=== PATIENT | male | born 1955 | race Caucasian/White ===

== ENCOUNTER → 2017-02-19 | Outpatient (CLI) | payer OTHER ==
[~2017-02-19] MED LIST: ADVICAP; ALPR0.5T3 DOB; AMOX500C PO; BACI500O9 TOP; BACI500T TOP; BISA10SU PR; CHLO.12%30; CHOL1CAP13 PO; CYAN100017 DOB; D31000TA PO; DOC-8.6T PO; DOCU100S TUBE; FLUC100T2 PO; IBUP-988 PO; IBUP200C PO; LANSO30 TUBE; LORA-474 PO; MORP10S PO; MORP20SO DOB; MOTR100T DOB; MVI5UDC TUBE; NEXI40CA PO; PREV30CA11 PO; PRIL20CA DOBHOFF; PROM6.2518 PEG; REST30CA PO; SENNSYP PEG; TAB-TAB DOB; TAMS.4 PO; TAMS5CAP PO; TEMA15 DOB; TEMA15 TUBE; TRAM50TA PO; VIAG100T DOB; VITA500C DOBHOFF; ZINC50TA2 DOB; ZOFR4TAB3 SL; [UNRECOGNIZED DRUG - CODE] PEG; [UNRECOGNIZED DRUG - CODE] TUBE; [UNRECOGNIZED DRUG - CODE] TUBE
[2017-02-19 09:23] LABS: EOSINOPHIL # 0.1 TH/MM3 (0-0.4); EOSINOPHIL % 2.6 % (0.0-4.0); HEMATOCRIT 43.1 % (39.0-51.0); HEMO FLAGS DIFF FINAL; LYMPH % 25.7 % (9.0-44.0); LYMPHOCYTE # 0.9 TH/MM3 (1.0-4.8); MEAN CORPUSCULAR HEMOGLOBIN 29.4 PG (27.0-34.0); MONO % 10.3 % (0.0-8.0); NEUT % 60.4 % (16.0-70.0); PLATELET COUNT 167 TH/MM3 (150-450); RED BLOOD COUNT 4.84 MIL/MM3 (4.50-5.90); WHITE BLOOD COUNT 3.3 TH/MM3 (4.0-11.0)
[2017-02-19 10:01] LABS: ANION GAP 8 MEQ/L (5-15); AST (GOT) 14 U/L (15-37); BICARBONATE 30.4 MEQ/L (21.0-32.0); BLOOD UREA NITROGEN 12 MG/DL (7-18); CHLORIDE 103 MEQ/L (98-107); GLOMERULAR FILTRATION RATE 76 ML/MIN (>89); GLUCOSE,FASTING 100 MG/DL (74-99); SODIUM (NA) 141 MEQ/L (136-145)
[2017-02-19 10:28] LABS: ALKALINE PHOSPHATASE 58 U/L (45-117); ALT (GPT) 26 U/L (12-78); TOTAL BILIRUBIN ADULT 0.5 MG/DL (0.2-1.0)
== END ==
LOC: CLAB 08:52
PROVIDERS: ATTEND Internal Medicine
DX: R53.83 Other fatigue (principal)
CPT/HCPCS: 36415; 80053; 82306; 82607; 82746; 84443; 85025

== ENCOUNTER → 2017-03-30 | Outpatient (CLI) | payer OTHER | LOC: CLAB 12:29 | DX: Z12.11 Encounter for screening for malignant neoplasm of colon (principal) | CPT/HCPCS: 82272 ==

== ENCOUNTER → 2017-04-24 | Outpatient (CLI) | payer OTHER ==
--- NOTE | 2017-04-24 11:24 | RADRPT ---
EXAM DATE/TIME: 04/24/2017 00:00 [place] COMPARISON: BA SWALLOW W/SPEECH PATHOLOGY, January 31, 2016, 0:00. INDICATIONS : Aspiration. FLUORO TIME: 2.6 minutes IMAGE COUNT: 0 CONTRAST: Dose as prescribed by speech pathologist. MEDICAL HISTORY : Base of tongue cancer, necrosis of a tooth SURGICAL HISTORY : Tongue surgery ENCOUNTER: Initial ACUITY: 1 day PAIN SCORE: 0/10 LOCATION: Bilateral neck FINDINGS: A modified barium swallow was performed with speech pathology. Patient was given a variety of liquids to swallow. The patient initiates swallowing normally and no evidence of laryngeal penetration or aspiration. Wh en swallowing semisolid and cookie consistency, there is retention of material in the base of the ton sammy which does clear with subsequent swallows with thin liquid. For a full detailed report, see report by the speech pathologist. CONCLUSION: No episodes of aspiration seen. Quincy Wills MD on April 24, 2017 at 11:22 Board Certified Radiologist. This report was verified electronically.
== END ==
LOC: MERGE 10:42 → HRAD 10:42
PROVIDERS: ATTEND Radiology Body Imaging
DX: R13.10 Dysphagia, unspecified (principal); Z85.810 Personal history of malignant neoplasm of tongue; Z85.819 Personal history of malignant neoplasm of unspecified site of lip, oral cavity, and pharynx
CPT/HCPCS: 74230; 92611; G8996; G8997; G8998

== ENCOUNTER → 2017-05-10 | Day surgery (SDC) | payer OTHER ==
[~2017-05-10] MED LIST changes: -AMOX500C PO; -IBUP-988 PO; +LACTATED RINGER'S 1000 ML INJ 1,000 ML ONE; -NEXI40CA PO; +PROPOFOL 500 MG/50 ML BTL IV ONE
--- NOTE | 2017-05-10 13:35 | GIPROC ---
[facility] [address] [facility], [address] COLONOSCOPY PROCEDURE REPORT EXAM DATE: 05/10/2017 PATIENT NAME: Jose Welsh MR #: [id number] BIRTHDATE: 1955 ENDOSCOPIST: Erin Allred MD ORDER #: [id number] [employer]UCK [employer] MECHANIC: STATUS: outpatient INDICATIONS: The patient is a 62 yr old male here for a colonoscopy due to high risk patient with personal history of colonic polyps PROCEDURE PERFORMED: Colonoscopy with ablation Colonoscopy with polypectomy MEDICATIONS: None and Per Anesthesia. PREP QUALITY: 10 % obscured ESTIMATED BLOOD LOSS: None CONSENT: The patient understands the risks and benefits of the procedure and understands that these risks include, but are not limited to: sedation, allergic reaction, infection, perforation and/or bleeding. Alternative means of evaluation and treatment include, among others: physical exam, x-rays, and/or surgical intervention. The patient elects to proceed with this endoscopic procedure. medical equipment was checked for proper function. Hand hygiene and appropriate measures for infection prevention was taken. After the risks, benefits and alternatives of the procedure were thoroughly explained, Informed consent was verified, confirmed and timeout was successfully executed by the treatment team. A digital exam revealed no abnormalities of the rectum The EC-3890Li ([id number]) endoscope was introduced through the anus and advanced to the cecum, which was identified by both the appendix and ileocecal valve. The instrument was then slowly withdrawn as the colon was fully examined. COLON FINDINGS: 1 small polyp in the cecum ablated with heat. 2 polyps in the ascending colon removed by snare. Some stool hroughout the colon. Retroflexed views revealed no abnormalities The scope was then completely withdrawn from the patient and the procedure terminated. ADVERSE EVENTS: There were no complications. IMPRESSIONS: 1. 1 small polyp in the cecum ablated with heat 2. 2 polyps in the ascending colon removed by snare 3. Some stool hroughout the colon 4. Retroflexed views revealed no abnormalities 5. Revealed no abnormalities of the rectum RECOMMENDATIONS: 1. Await biopsy results. Biopsy results will not be ready for 7-10 days. If you don't hear from us in two weeks, call our office for results. 2. Yearly hemoccult 3. High fiber diet RECALL: Return 2 years Colonoscopy longer prep Erin Allred MD eSigned: Erin Allred MD 05/10/2017 1:34 PM cc: Hector Way M.D.
--- NOTE | 2017-05-10 13:38 | GIPROC ---
[facility] [address] [facility], [address] EGD PROCEDURE REPORT EXAM DATE: 05/10/2017 PATIENT NAME: Jose Welsh MR #: [id number] BIRTHDATE: 1955 ATTENDING: Erin Allred MD ORDER #: [id number] DIRECTOR CAREER SERVICES: STATUS: outpatient INDICATIONS: The patient is a 62 yr old male here for an EGD due to dysphagia PROCEDURE PERFORMED: EGD w/ dilation of esophagus via guidewire EGD w/ snare technique MEDICATIONS: None and Per Anesthesia. TOPICAL ANESTHETIC: none CONSENT: The patient understands the risks and benefits of the procedure and understands that these risks include, but are not limited to: sedation, allergic reaction, infection, perforation and/or bleeding. Alternative means of evaluation and treatment include, among others: physical exam, x-rays, and/or surgical intervention. The patient elects to proceed with this endoscopic procedure. medical equipment was checked for proper function. Hand hygiene and appropriate measures for infection prevention was taken. After the risks, benefits and alternatives of the procedure were thoroughly explained, Informed consent was verified, confirmed and timeout was successfully executed by the treatment team. The patient was anesthetized with topical anesthesia and the EC-3890Li ([id number]) endoscope was introduced through the mouth and advanced to the second portion of the duodenum. Retroflexed views revealed no abnormalities The gastroscope was then slowly withdrawn and removed. Gastric polyp removed by snare. Normal EGD otherwise, s/p imperic dilation size 17 mm. Previous toung surgery. ADVERSE EVENTS: There were no complications. IMPRESSIONS: 1. Normal endoscopy otherwise 2. Retroflexed views revealed no abnormalities RECOMMENDATIONS: 1. Await biopsy results. Biopsy results will not be ready for 7-10 days. If you don't hear from us in two weeks, call our office for biopsy results. 2. Soft blended diet PATIENT CONDITION: stable DISPOSITION: Home REPEAT EXAM: Return as needed for EGD Erin Allred MD eSigned: Erin Allred MD 05/10/2017 1:38 PM cc: DOCUMENT ADDENDUM eSigned: Erin Allred MD 05/10/2017 1:45 PM Reason for addendum: [x] Correction of inaccurate information [ ] Recently acquired lab/pathology results [ ] Additional information Comments: there was no polyp in the stomach and polypectomy was not performed on the stomach, just dilation PATIENT NAME: Jose Welsh MR#: [id number]
== END | disposition home or self-care (01) ==
LOC: ESDC 10:53
PROVIDERS: ATTEND Hospitalist
DX: Z12.11 Encounter for screening for malignant neoplasm of colon (principal); Z86.010 Personal history of colon polyps; D12.2 Benign neoplasm of ascending colon; D12.0 Benign neoplasm of cecum; R13.10 Dysphagia, unspecified
CPT/HCPCS: 00740; 00810; 43248; 45385; 45388; 88305; J3010; J7120

== ENCOUNTER → 2017-06-26 | Outpatient (CLI) | payer OTHER ==
[~2017-06-26] MED LIST changes: -ADVICAP; -ALPR0.5T3 DOB; -BACI500O9 TOP; -BACI500T TOP; -BISA10SU PR; -CHLO.12%30; +CIPR-9 PO; -CYAN100017 DOB; -D31000TA PO; -DOCU100S TUBE; -LACTATED RINGER'S 1000 ML INJ 1,000 ML ONE; -LANSO30 TUBE; -MORP10S PO; -MORP20SO DOB; -MOTR100T DOB; +MULT1TAB46 PO; -MVI5UDC TUBE; -PRIL20CA DOBHOFF; -PROM6.2518 PEG; -PROPOFOL 500 MG/50 ML BTL IV ONE; -SENNSYP PEG; -TEMA15 DOB; -TEMA15 TUBE; -TRAM50TA PO; -VITA500C DOBHOFF; -ZINC50TA2 DOB; -ZOFR4TAB3 SL; -[UNRECOGNIZED DRUG - CODE] PEG; -[UNRECOGNIZED DRUG - CODE] TUBE; -[UNRECOGNIZED DRUG - CODE] TUBE
[2017-06-26 15:57] LABS: AUTOMATED NEUTROPHIL # 4.3 TH/MM3 (1.8-7.7); BASOPHIL % 0.6 % (0.0-2.0); EOSINOPHIL # 0.1 TH/MM3 (0-0.4); EOSINOPHIL % 1.4 % (0.0-4.0); HEMATOCRIT 39.3 % (39.0-51.0); HEMO FLAGS DIFF FINAL; LYMPH % 17.9 % (9.0-44.0); LYMPHOCYTE # 1.1 TH/MM3 (1.0-4.8); MEAN CELL VOLUME 89.3 FL (80.0-100.0); MEAN CORPUSCULAR HEMOGLOBIN 30.2 PG (27.0-34.0); MEAN CORPUSCULAR HGB CONC 33.8 % (32.0-36.0); MONO % 8.6 % (0.0-8.0); NEUT % 71.5 % (16.0-70.0); PLATELET COUNT 190 TH/MM3 (150-450); RED CELL DISTRIBUTION WIDTH 13.9 % (11.6-17.2)
[2017-06-26 16:18] LABS: ANION GAP 4 MEQ/L (5-15); AST (GOT) 17 U/L (15-37); BICARBONATE 31.1 MEQ/L (21.0-32.0); BLOOD UREA NITROGEN 14 MG/DL (7-18); CHLORIDE 98 MEQ/L (98-107); GLOMERULAR FILTRATION RATE 71 ML/MIN (>89); GLUCOSE,FASTING 93 MG/DL (74-99); POTASSIUM 4.4 MEQ/L (3.5-5.1); SODIUM (NA) 133 MEQ/L (136-145)
[2017-06-26 16:19] LABS: ALT (GPT) 24 U/L (12-78)
[2017-06-26 16:21] LABS: ALKALINE PHOSPHATASE 62 U/L (45-117); TOTAL BILIRUBIN ADULT 0.3 MG/DL (0.2-1.0)
== END ==
LOC: CLAB 15:38
PROVIDERS: ATTEND Internal Medicine
DX: R53.83 Other fatigue (principal)
CPT/HCPCS: 36415; 80053; 85025

== ENCOUNTER → 2017-08-03 | Outpatient (CLI) | payer OTHER ==
[~2017-08-03] VITALS: Ht 188 cm; Wt 70.0 kg
[~2017-08-03] MED LIST changes: +BENZOCAINE 20% ORAL SPR 60 ML CAN OROPHARYNG ONE; +LIDOCAINE 2% JELLY 5 ML TUBE TOPICAL ONE; +LIDOCAINE HCL 2% JELLY 5 ML SYRINGE TOPICAL ONE
[2017-08-03 11:00] VITALS: BP 121/62; PULSE 71; RESP 18; TEMP 97.5; O2SAT 99
--- NOTE | 2017-08-08 13:52 | PD.PROCEDR ---
GI Procedure PROCEDURE PERFORMED EGD with biopsy and dilation INDICATION FOR PROCEDURE Dysphagia PROCEDURE: The procedure, risks and benefits were discussed with Mr. Welsh and informed consent was obtained. Anesthesia sedated him with Diprivan. He was placed in the left lateral decubitus position. EGD: The Pentax videoscope was introduced through the oropharynx and advanced to the second portion of the duodenum under direct visualization. Retroflexion was performed in the stomach. FINDINGS: The esophagus this appeared to be unremarkable and within normal limits except for a mild irregularity of the Z line this Z line was biopsied and due to the issue of dysphagia I went ahead and dilated with a size 19 mm savory over-the- guidewire dilator post dilatation view was unremarkable with no tears and no bleeding The stomach there was a mild to moderate hiatal hernia otherwise gastric mucosa was unremarkable so as retroflexion The duodenum this was normal ESTIMATED BLOOD LOSS: None SPECIMENS REMOVED: Esophageal biopsy COMPLICATIONS: None IMPRESSION: Irregular Z line Hiatal hernia PLAN: Await biopsy Follow-up with GI in 2-4 weeks Precautions with eating and swallowing Iglesia Mitchell MD Aug 08, 2017 13:52
== END ==
LOC: HEND 10:51
PROVIDERS: ATTEND Hospitalist
DX: R13.10 Dysphagia, unspecified (principal)
CPT/HCPCS: 91010

== ENCOUNTER → 2017-08-08 | Outpatient (CLI) | payer OTHER ==
[~2017-08-08] VITALS: Ht 188 cm; Wt 82.5 kg
[~2017-08-08] MED LIST changes: -BENZOCAINE 20% ORAL SPR 60 ML CAN OROPHARYNG ONE; +CHLORHEXIDINE GLUCONATE 2 % 1 PACK (2 CLOTHS) TOPICAL PRN; +FAMOTIDINE 20 MG/2 ML VIAL ONE; +INSULIN HUMAN REGULAR 1,000 UNITS/10 ML VIAL SQ PRN; +LACTATED RINGER'S 1000 ML IV PRN; -LIDOCAINE 2% JELLY 5 ML TUBE TOPICAL ONE; -LIDOCAINE HCL 2% JELLY 5 ML SYRINGE TOPICAL ONE; +METOPROLOL TARTRATE 25 MG TAB PO PRN; +POVIDONE IODINE 5% (ANTISEPSIS KIT) 4 APPLICATIONS EACH NARE PRN; +PROPOFOL 200 MG/20 ML AMP IV ONE; +SODIUM CHLORID 0.9% 500 ML IV PRN
[2017-08-08 14:01] VITALS: BP 122/68; PULSE 58; RESP 16; O2SAT 99
--- NOTE | 2017-08-08 20:38 | EKG ---
Date Performed: 08/08/2017 Time Performed: 09:45:29 PTAGE: 62 years EKG: SINUS BRADYCARDIA BORDERLINE ECG PREVIOUS TRACING : 06/22/2009 11.03 Compared to prior tracing no significant change DOCTOR: German Courtney Interpretating Date/Time 08/08/2017 20:37:29
--- NOTE | 2017-08-29 07:46 | PD.PROCEDR ---
GI Procedure PROCEDURE DATE: Aug 08, 2017 PROCEDURE PERFORMED EGD with biopsy and dilation INDICATION FOR PROCEDURE Dysphagia PROCEDURE: The procedure, risks and benefits were discussed with Mr. Welsh and informed consent was obtained. Anesthesia sedated him with Diprivan. He was placed in the left lateral decubitus position. EGD: The Pentax videoscope was introduced through the oropharynx and advanced to the second portion of the duodenum under direct visualization. Retroflexion was performed in the stomach. FINDINGS: The esophagus this appeared to be unremarkable and within normal limits except for a mild irregularity of the Z line this Z line was biopsied and due to the issue of dysphagia I went ahead and dilated with a size 19 mm savory over-the- guidewire dilator post dilatation view was unremarkable with no tears and no bleeding The stomach there was a mild to moderate hiatal hernia otherwise gastric mucosa was unremarkable so as retroflexion The duodenum this was normal ESTIMATED BLOOD LOSS: None SPECIMENS REMOVED: Esophageal biopsy COMPLICATIONS: None IMPRESSION: Irregular Z line Hiatal hernia PLAN: Await biopsy Follow-up with GI in 2-4 weeks Precautions with eating and swallowing Iglesia Mitchell MD Aug 08, 2017 13:52 Iglesia Mitchell MD Aug 29, 2017 07:46
== END ==
LOC: HSDC 09:17
PROVIDERS: ATTEND Internal Medicine Gastroenterology
DX: K22.8 Other specified diseases of esophagus (principal); K44.9 Diaphragmatic hernia without obstruction or gangrene; Z01.810 Encounter for preprocedural cardiovascular examination
CPT/HCPCS: 00740; 43239; 43248; 88305; 93005; C1769; J7120

== ENCOUNTER 2017-09-20 17:34 | Inpatient (IN) | payer OTHER ==
[~2017-09-20] VITALS: Ht 188 cm; Wt 81.8 kg
[~2017-09-20 17:34] MED LIST changes: -CHLORHEXIDINE GLUCONATE 2 % 1 PACK (2 CLOTHS) TOPICAL PRN; -CHOL1CAP13 PO; +CHOL1CAP34 PO; -CIPR-9 PO; -FAMOTIDINE 20 MG/2 ML VIAL ONE; -FLUC100T2 PO; -INSULIN HUMAN REGULAR 1,000 UNITS/10 ML VIAL SQ PRN; -LACTATED RINGER'S 1000 ML IV PRN; -METOPROLOL TARTRATE 25 MG TAB PO PRN; -POVIDONE IODINE 5% (ANTISEPSIS KIT) 4 APPLICATIONS EACH NARE PRN; -PREV30CA11 PO; +PREV30CA36 PO; -PROPOFOL 200 MG/20 ML AMP IV ONE; -SODIUM CHLORID 0.9% 500 ML IV PRN; -TAB-TAB DOB; -TAMS.4 PO; -VIAG100T DOB
[2017-09-20 17:38] VITALS: BP 121/59; PULSE 121; RESP 16; TEMP 97.9; O2SAT 99
[2017-09-20] MEDS ORDERED: OXYC1TAB63 PO (17:55)
[2017-09-20] MEDS ORDERED: PROM12.54 PO (17:55)
--- NOTE | 2017-09-20 18:14 | PD ---
HPI Chief Complaint: Abdominal Pain Time Seen by Provider: 18:14 Travel History International Travel<30 days: No Contact w/Intl Traveler<30days: No Traveled to known affect area: No History of Present Illness HPI 62-year-old male with history of resected tongue cancer, recently treated here and in [place] for recurrent bleed from this area which was resected and cauterized. [facility] [place] with follow-up landed with Dr. Rock. Patient currently complaining of severe constipation and rectal pain. He states the last time he moved his bowels was a day and a half ago. Patient has tried a fleets enema and suppository without improvement. Patient has been taking oxycodone every 4 hours for his tongue issue. Patient is currently complaining of 10 out of 10 rectal pain. He denies bleeding or hemorrhoids. He states he is allergic to oxycodone, Zofran, hydrocodone, codeine, and lactose, although patient has been taking Percocet. 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)) Cardiovascular Problems: No High Cholesterol: No Chemotherapy: No Chest Pain: No Congestive Heart Failure: No COPD: No Cerebrovascular Accident: No Diabetes: No Diminished Hearing: No Endocrine: No Gastrointestinal Disorders: Yes (ESOPHAGEAL STRICTURES, PARTIAL TONGUE/PHARYNX REMOVAL) GERD: Yes Glaucoma: No Genitourinary: Yes Headaches: Yes Hepatitis: No Hiatal Hernia: Yes Hypertension: No Immune Disorder: No Musculoskeletal: Yes (ARTHRITIS) Neurologic: No Psychiatric: Yes (ANXIETY) Reproductive: No Respiratory: No Migraines: Yes Radiation Therapy: Yes (HX) Seizures: No Sleep Apnea: Yes Thyroid Disease: No Ulcer: No Tetanus Vaccination: < 5 Years Influenza Vaccination: Yes Past Surgical History Abdominal Surgery: No AICD: No Cardiac Surgery: No Ear Surgery: No Endocrine Surgery: No Eye Surgery: Yes Genitourinary Surgery: No Gynecologic Surgery: No Joint Replacement: No Oral Surgery: Yes (GLOSECTOMY) Pacemaker: No Thoracic Surgery: No Tonsillectomy: Yes (right tonsils removed) Other Surgery: Yes (adnoids) Social History Alcohol Use: No Tobacco Use: No Substance Use: No Allergies-Medications (Allergen,Severity, Reaction): Coded Allergies: lactose (Verified Allergy, Mild, 09/20/17) Lactose intolerance oxycodone (Verified Allergy, Unknown, n/v, 09/20/17) ondansetron (Verified Adverse Reaction, Severe, Nausea/Vomiting, 09/20/17) codeine (Verified Adverse Reaction, Intermediate, NAUSEA, 09/20/17) hydrocodone (Verified Adverse Reaction, Intermediate, Nausea/Vomiting, 09/20/17) Reported Meds & Prescriptions Reported Meds & Active Scripts Active Reported Promethazine (Promethazine HCl) 12.5 Mg Tab 12.5 Mg PO Q6H PRN Oxycodone-Acetaminophen 5-325 mg Tab 1 Tab PO Q4H PRN Vitamin D3 (Cholecalciferol) 50,000 Unit Cap 50,000 Units PO Q7D Multi Vitamin Daily (Multiple Vitamin) 1 Tab Tab PO DAILY Doc-Q-Lax (Sennosides-Docusate Sodium) 8.6-50 Mg Tab 1 Tab PO BID Prevacid (Lansoprazole) 30 Mg Capdr 30 Mg PO BID Ibuprofen 200 Mg Cap 200 Mg PO Q6H PRN Restoril (Temazepam) 30 Mg Cap 30 Mg PO HS PRN Flomax (Tamsulosin HCl) 0.4 Mg Cap 0.4 Mg PO HS Ativan (Lorazepam) 1 Mg Tab 1 Mg PO TID PRN Review of Systems Except as stated in HPI: all other systems reviewed are Neg General / Constitutional: No: Fever Eyes: No: Visual changes HENT: No: Headaches Cardiovascular: No: Chest Pain or Discomfort Respiratory: No: Shortness of Breath Gastrointestinal: Positive: Abdominal Pain, Constipation, No: Nausea, Vomiting , Diarrhea, Hematemesis (lower abdominal and rectal pain), Hematochezia, Changes in Bowel Habits, Indigestion, Dysphagia, Loss of Appetite Genitourinary: No: Dysuria Musculoskeletal: No: Pain Skin: No Rash Neurologic: No: Weakness Psychiatric: No: Depression Endocrine: No: Polydipsia Hematologic/Lymphatic: No: Easy Bruising Physical Exam Narrative GENERAL: Patient is in moderate distress. SKIN: Warm and dry. Normal color. Normal turgor. HEAD: Atraumatic. Normocephalic. EYES: Pupils equal and round. No scleral icterus. No injection or drainage. ENT: No nasal bleeding or discharge. Mucous membranes pink and moist. No active bleeding is noted from the tongue or throat. NECK: Trachea midline. Supple and nontender. CARDIOVASCULAR: Regular rate and rhythm. RESPIRATORY: No accessory muscle use. Clear to auscultation. Breath sounds equal bilaterally. GASTROINTESTINAL: Abdomen soft, moderate left sided lower tenderness, nondistended. No point tenderness or rebound. Hepatic and splenic margins not palpable. Rectal exam shows normal-appearing rectum with dark stool present. Fecal bolus is palpable. MUSCULOSKELETAL: Extremities without clubbing, cyanosis, or edema. No obvious deformities. NEUROLOGICAL: Awake and alert. No obvious cranial nerve deficits. Motor grossly within normal limits. Five out of 5 muscle strength in the arms and legs. Normal speech. PSYCHIATRIC: Appropriate mood and affect; insight and judgment normal. Data Data Last Documented VS Vital Signs Date Time Temp Pulse Resp B/P (MAP) Pulse Ox O2 Delivery O2 Flow Rate FiO2 09/20/17 20:14 108 16 141/63 (89) 100 Room Air 09/20/17 17:38 97.9 Orders Orders Complete Blood Count With Diff (09/20/17 18:24) Comprehensive Metabolic Panel (09/20/17 18:24) Prothrombin Time / Inr (Pt) (09/20/17 18:24) Act Partial Throm Time (Ptt) (09/20/17 18:24) Iv Access Insert/Monitor (09/20/17 18:24) Ecg Monitoring (09/20/17 18:24) Oximetry (09/20/17 18:24) Morphine Inj (Morphine Inj) (09/20/17 18:30) Sodium Chlor 0.9% 1000 Ml Inj (Ns 1000 M (09/20/17 18:24) Sodium Chloride 0.9% Flush (Ns Flush) (09/20/17 18:30) Mineral Oil Enema (Fleet Mineral Oil Elise (09/20/17 18:30) Ckmb (Isoenzyme) Profile (09/20/17 18:48) Act Partial Throm Time (Ptt) (09/20/17 18:48) Troponin I (09/20/17 18:48) Ct Abd/Pel W Iv Contrast(Rout) (09/20/17 18:48) Type And Screen (09/20/17 19:02) Lorazepam Inj (Ativan Inj) (09/20/17 19:45) Labs Laboratory Tests Test 09/20/17 18:50 White Blood Count 8.2 TH/MM3 Red Blood Count 2.56 MIL/MM3 Hemoglobin 8.2 GM/DL Hematocrit 23.4 % Mean Corpuscular Volume 91.1 FL Mean Corpuscular Hemoglobin 31.9 PG Mean Corpuscular Hemoglobin Concent 35.0 % Red Cell Distribution Width 13.4 % Platelet Count 289 TH/MM3 Mean Platelet Volume 6.7 FL Neutrophils (%) (Auto) 89.1 % Lymphocytes (%) (Auto) 5.9 % Monocytes (%) (Auto) 4.6 % Eosinophils (%) (Auto) 0.2 % Basophils (%) (Auto) 0.2 % Neutrophils # (Auto) 7.3 TH/MM3 Lymphocytes # (Auto) 0.5 TH/MM3 Monocytes # (Auto) 0.4 TH/MM3 Eosinophils # (Auto) 0.0 TH/MM3 Basophils # (Auto) 0.0 TH/MM3 CBC Comment DIFF FINAL Differential Comment Prothrombin Time 11.3 SEC Prothromb Time International Ratio 1.0 RATIO Activated Partial Thromboplast Time 23.7 SEC Blood Urea Nitrogen 20 MG/DL Creatinine 1.05 MG/DL Random Glucose 115 MG/DL Total Protein 6.3 GM/DL Albumin 2.9 GM/DL Calcium Level 8.3 MG/DL Alkaline Phosphatase 55 U/L Aspartate Amino Transf (AST/SGOT) 17 U/L Alanine Aminotransferase (ALT/SGPT) 26 U/L Total Bilirubin 0.3 MG/DL Sodium Level 136 MEQ/L Potassium Level 4.0 MEQ/L Chloride Level 102 MEQ/L Carbon Dioxide Level 25.0 MEQ/L Anion Gap 9 MEQ/L Estimat Glomerular Filtration Rate 72 ML/MIN [facility] Medical Decision Making Medical Screen Exam Complete: Yes Emergency Medical Condition: Yes Medical Record Reviewed: Yes Differential Diagnosis Rectal pain. Abdominal pain. Guaiac positive stool. Fecal impaction. Constipation. Narrative Course Patient is in moderate distress. Labs ordered including CBC, CMP, cardiac panel, urinalysis, PT PTT and INR, type and screen. Rectal exam is performed with partial impaction removal with dark stool removed with moderate amount of soft stool expelled. Comode is brought to the room. IV access is obtained patient is given 4 mg morphine IV as well as thousand and normal saline bolus. CT of the abdomen/pelvis with IV contrast is ordered. Patient is given 1 mg Xanax IV as well. Patient refused his chest x-ray and abdominal/pelvic CT. CBC shows hemoglobin 8.2, and hematocrit of 23.4. This is decreased from 13.5 and 39.1 on 15 September. Patient is discussed with Dr. Calvert, as I'm concerned about his abdominal pain with guaiac positive stools with worsening H&H.. Dr. Calvert sees the patient. Patient is felt to be having a GI bleed of some type with worsening hemoglobin and lactic positive stool. Call was placed to the hospitalist, and the patient is discussed with Dr. Marcano who agrees to admit the patient. GI will be consult the. Diagnosis Primary Impression: Guaiac positive stools Additional Impressions: Fecal impaction in rectum Anemia Qualified Codes: D62 - Acute posthemorrhagic anemia Admitting Information Admitting Physician Requests: Admit Condition: Stable Ronaldo Dietrich Sep 20, 2017 18:14
[2017-09-20] MEDS ORDERED: SODIUM CHLOR 0.9% 1000 ML INJ 1,000 ML IV SCH (18:24)
[2017-09-20] MEDS ORDERED: SODIUM CHLORIDE 0.9% FLUSH 10 ML FLUSH IV FLUSH PRN ×2 (18:30→21:45)
[2017-09-20] MEDS ORDERED: MINERAL OIL ENEMA 118 ML BTL RECTAL ONE (18:30)
[2017-09-20] MEDS ORDERED: MORPHINE SULFATE 4 MG/ML INJ IV PUSH ONE (18:30)
[2017-09-20 18:53] VITALS: RESP 18; O2SAT 100
[2017-09-20 19:22] LABS: AUTOMATED NEUTROPHIL # 7.3 TH/MM3 (1.8-7.7); BASOPHIL % 0.2 % (0.0-2.0); EOSINOPHIL % 0.2 % (0.0-4.0); HEMATOCRIT 23.4 % (39.0-51.0); HEMO FLAGS DIFF FINAL; LYMPH % 5.9 % (9.0-44.0); LYMPHOCYTE # 0.5 TH/MM3 (1.0-4.8); MEAN CELL VOLUME 91.1 FL (80.0-100.0); MEAN CORPUSCULAR HEMOGLOBIN 31.9 PG (27.0-34.0); MONO % 4.6 % (0.0-8.0); NEUT % 89.1 % (16.0-70.0); PLATELET COUNT 289 TH/MM3 (150-450); RED BLOOD COUNT 2.56 MIL/MM3 (4.50-5.90); RED CELL DISTRIBUTION WIDTH 13.4 % (11.6-17.2); WHITE BLOOD COUNT 8.2 TH/MM3 (4.0-11.0)
[2017-09-20 19:30] LABS: APTT (PATIENT) 23.7 SEC (24.3-30.1); PROTHROMBIN TIME - PATIENT 11.3 SEC (9.8-11.6)
[2017-09-20 19:35] LABS: ANION GAP 9 MEQ/L (5-15); AST (GOT) 17 U/L (15-37); BLOOD UREA NITROGEN 20 MG/DL (7-18); CHLORIDE 102 MEQ/L (98-107); GLOMERULAR FILTRATION RATE 72 ML/MIN (>89); SODIUM (NA) 136 MEQ/L (136-145)
[2017-09-20 19:36] LABS: ALT (GPT) 26 U/L (12-78)
[2017-09-20 19:38] LABS: ALKALINE PHOSPHATASE 55 U/L (45-117); TOTAL BILIRUBIN ADULT 0.3 MG/DL (0.2-1.0)
[2017-09-20] MEDS ORDERED: LORazepam 2 MG/ML VIAL IV PUSH ONE (19:45)
[2017-09-20 20:14] VITALS: BP 141/63; PULSE 108; RESP 16; O2SAT 100
--- NOTE | 2017-09-20 20:52 | PD ---
Physical Exam Narrative I, Dr. Calvert, have reviewed the advance practice practitioner's documentation and am in agreement, met with the patient face to face, made the diagnosis, and the medical decision making was done by me. *My assessment and Findings: Lower GI bleed vs. opioid induced constipation vs. colitis 62yo M with lower abdominal pain and has positive hemaprompt. Pt is tachycardic at 121bpm but improved to 108bpm now. This may be pain related or secondary to GI bleed. Labs reviewed, no leukocytosis. H/H low at 8.2/23.4. The last hemoglobin we have on record is 13.5/39.1 on 09/15/17. Pt went to [facility] and said he had more bleeding from his tongue cancer and his hemoglobin was down to the 8.0 region. However, with abdominal pain, positive hemaprompt and drop in hemoglobin, I cant rule out GI bleed without colonoscopy. Pt is refusing CT scan. Pt given morphine and protonix. Discussed with hospitalist and accepted to Dr. Marcano's service. Data Data Last Documented VS Vital Signs Date Time Temp Pulse Resp B/P (MAP) Pulse Ox O2 Delivery O2 Flow Rate FiO2 09/20/17 20:14 108 16 141/63 (89) 100 Room Air 09/20/17 17:38 97.9 Orders Orders Complete Blood Count With Diff (09/20/17 18:24) Comprehensive Metabolic Panel (09/20/17 18:24) Prothrombin Time / Inr (Pt) (09/20/17 18:24) Act Partial Throm Time (Ptt) (09/20/17 18:24) Iv Access Insert/Monitor (09/20/17 18:24) Ecg Monitoring (09/20/17 18:24) Oximetry (09/20/17 18:24) Morphine Inj (Morphine Inj) (09/20/17 18:30) Sodium Chlor 0.9% 1000 Ml Inj (Ns 1000 M (09/20/17 18:24) Sodium Chloride 0.9% Flush (Ns Flush) (09/20/17 18:30) Mineral Oil Enema (Fleet Mineral Oil Elise (09/20/17 18:30) Ckmb (Isoenzyme) Profile (09/20/17 18:48) Act Partial Throm Time (Ptt) (09/20/17 18:48) Troponin I (09/20/17 18:48) Ct Abd/Pel W Iv Contrast(Rout) (09/20/17 18:48) Type And Screen (09/20/17 19:02) Lorazepam Inj (Ativan Inj) (09/20/17 19:45) Pantoprazole Inj (Protonix Inj) (09/20/17 21:00) Admit Order (Ed Use Only) (09/20/17 20:49) Labs Laboratory Tests Test 09/20/17 18:50 White Blood Count 8.2 TH/MM3 Red Blood Count 2.56 MIL/MM3 Hemoglobin 8.2 GM/DL Hematocrit 23.4 % Mean Corpuscular Volume 91.1 FL Mean Corpuscular Hemoglobin 31.9 PG Mean Corpuscular Hemoglobin Concent 35.0 % Red Cell Distribution Width 13.4 % Platelet Count 289 TH/MM3 Mean Platelet Volume 6.7 FL Neutrophils (%) (Auto) 89.1 % Lymphocytes (%) (Auto) 5.9 % Monocytes (%) (Auto) 4.6 % Eosinophils (%) (Auto) 0.2 % Basophils (%) (Auto) 0.2 % Neutrophils # (Auto) 7.3 TH/MM3 Lymphocytes # (Auto) 0.5 TH/MM3 Monocytes # (Auto) 0.4 TH/MM3 Eosinophils # (Auto) 0.0 TH/MM3 Basophils # (Auto) 0.0 TH/MM3 CBC Comment DIFF FINAL Differential Comment Prothrombin Time 11.3 SEC Prothromb Time International Ratio 1.0 RATIO Activated Partial Thromboplast Time 23.7 SEC Blood Urea Nitrogen 20 MG/DL Creatinine 1.05 MG/DL Random Glucose 115 MG/DL Total Protein 6.3 GM/DL Albumin 2.9 GM/DL Calcium Level 8.3 MG/DL Alkaline Phosphatase 55 U/L Aspartate Amino Transf (AST/SGOT) 17 U/L Alanine Aminotransferase (ALT/SGPT) 26 U/L Total Bilirubin 0.3 MG/DL Sodium Level 136 MEQ/L Potassium Level 4.0 MEQ/L Chloride Level 102 MEQ/L Carbon Dioxide Level 25.0 MEQ/L Anion Gap 9 MEQ/L Estimat Glomerular Filtration Rate 72 ML/MIN [facility] Supervised Visit with KWAKU: Yes Diagnosis Primary Impression: GI bleed Qualified Codes: K92.2 - Gastrointestinal hemorrhage, unspecified Admitting Information Admitting Physician Requests: Admit Condition: Stable Jessy Calvert DO Sep 20, 2017 20:52
[2017-09-20] MEDS ORDERED: PANTOPRAZOLE SODIUM 40 MG VIAL IV PUSH ONE (21:00)
[2017-09-20] MEDS ORDERED: BISACODYL 10 MG SUPP RECTAL ONE (21:45)
--- NOTE | 2017-09-20 21:54 | HHI.HP ---
HPI Service [facility] Primary Care Physician Hector Way MD Admission Diagnosis Fecal Impaction/WorseningAnemia/Guiac Positive Diagnoses: Travel History International Travel<30 Days: No Contact w/Intl Traveler <30 Da: No Traveled to Known Affected Are: No History of Present Illness 62-year-old male with a past medical history significant for tongue cancer presents to the emergency department with a 3 day history of left-sided abdominal pain and severe constipation. The patient is status post tongue resection in December 2015 which was followed with radiation therapy completed in May 2016. 2 weeks ago, the patient had a flap release of his tongue which resulted in residual bleeding requiring transfusion. The patient was discharged from [facility] in celebration on Sunday with a hemoglobin of 8. He is on Percocet every 4 hours and has had severe constipation 3 days. The patient tried an enema at home and is compliant with his stool softeners. Per emergency department examination there is a solid stool ball palpable in the patient's rectum. Disimpaction was unsuccessful. He was Hemoccult positive. He remains anemic with an H&H of 8.2/23.4. He denies dizziness or shortness of breath. Denies fatigue and weakness. Review of Systems Denies fever or chills Denies blurry vision, otorrhea, rhinorrhea Denies sore throat and cough No chest pain, palpitations, shortness of breath No abdominal pain Denies nausea/vomiting. Positive constipation Denies muscle pain/weakness No rashes Past Family Social History Past Medical History Tongue cancer Past Surgical History Tongue resection in 2016 Flap release 2 weeks ago Reported Medications Reported Meds & Active Scripts Active Reported Promethazine (Promethazine HCl) 12.5 Mg Tab 12.5 Mg PO Q6H PRN Oxycodone-Acetaminophen 5-325 mg Tab 1 Tab PO Q4H PRN Vitamin D3 (Cholecalciferol) 50,000 Unit Cap 50,000 Units PO Q7D Multi Vitamin Daily (Multiple Vitamin) 1 Tab Tab PO DAILY Doc-Q-Lax (Sennosides-Docusate Sodium) 8.6-50 Mg Tab 1 Tab PO BID Prevacid (Lansoprazole) 30 Mg Capdr 30 Mg PO BID Ibuprofen 200 Mg Cap 200 Mg PO Q6H PRN Restoril (Temazepam) 30 Mg Cap 30 Mg PO HS PRN Flomax (Tamsulosin HCl) 0.4 Mg Cap 0.4 Mg PO HS Ativan (Lorazepam) 1 Mg Tab 1 Mg PO TID PRN Allergies: Coded Allergies: lactose (Verified Allergy, Mild, 09/20/17) Lactose intolerance oxycodone (Verified Allergy, Unknown, n/v, 09/20/17) ondansetron (Verified Adverse Reaction, Severe, Nausea/Vomiting, 09/20/17) codeine (Verified Adverse Reaction, Intermediate, NAUSEA, 09/20/17) hydrocodone (Verified Adverse Reaction, Intermediate, Nausea/Vomiting, 09/20/17) Family History Dad with coronary artery disease, now from lung cancer. Mom with [place]. Social History Denies tobacco, alcohol and illicit drugs. Quit drinking 20 years ago. Physical Exam Vital Signs Vital Signs Date Time Temp Pulse Resp B/P (MAP) Pulse Ox O2 Delivery O2 Flow Rate FiO2 09/20/17 20:14 108 16 141/63 (89) 100 Room Air 09/20/17 18:53 18 100 Room Air 09/20/17 17:49 18 09/20/17 17:38 97.9 121 16 121/59 (79) 99 Physical Exam GENERAL: White male sitting up in bed in moderate discomfort SKIN: No rashes, ecchymoses or lesions. Cool and dry. HEAD: Atraumatic. Normocephalic. No temporal or scalp tenderness. EYES: Pupils equal round and reactive. Extraocular motions intact. No scleral icterus. No injection or drainage. ENT: Nose without bleeding, purulent drainage or septal hematoma. Throat without erythema, tonsillar hypertrophy or exudate. Uvula midline. Airway patent. NECK: Trachea midline. No JVD or lymphadenopathy. Supple, nontender, no meningeal signs. CARDIOVASCULAR: Regular rate and rhythm without murmurs, gallops, or rubs. RESPIRATORY: Clear to auscultation. Breath sounds equal bilaterally. No wheezes , rales, or rhonchi. GASTROINTESTINAL: Abdomen soft, tender to palpation worse in the left quadrants , mildly distended. No hepato-splenomegaly, or palpable masses. No guarding. MUSCULOSKELETAL: Extremities without clubbing, cyanosis, or edema. No joint tenderness, effusion, or edema noted. No calf tenderness. Negative Homans sign bilaterally. NEUROLOGICAL: Awake and alert. Cranial nerves II through XII intact. Motor and sensory grossly within normal limits. Normal speech. Laboratory Laboratory Tests Test 09/20/17 18:50 White Blood Count 8.2 Red Blood Count 2.56 Hemoglobin 8.2 Hematocrit 23.4 Mean Corpuscular Volume 91.1 Mean Corpuscular Hemoglobin 31.9 Mean Corpuscular Hemoglobin Concent 35.0 Red Cell Distribution Width 13.4 Platelet Count 289 Mean Platelet Volume 6.7 Neutrophils (%) (Auto) 89.1 Lymphocytes (%) (Auto) 5.9 Monocytes (%) (Auto) 4.6 Eosinophils (%) (Auto) 0.2 Basophils (%) (Auto) 0.2 Neutrophils # (Auto) 7.3 Lymphocytes # (Auto) 0.5 Monocytes # (Auto) 0.4 Eosinophils # (Auto) 0.0 Basophils # (Auto) 0.0 CBC Comment DIFF FINAL Differential Comment Prothrombin Time 11.3 Prothromb Time International Ratio 1.0 Activated Partial Thromboplast Time 23.7 Blood Urea Nitrogen 20 Creatinine 1.05 Random Glucose 115 Total Protein 6.3 Albumin 2.9 Calcium Level 8.3 Alkaline Phosphatase 55 Aspartate Amino Transf (AST/SGOT) 17 Alanine Aminotransferase (ALT/SGPT) 26 Total Bilirubin 0.3 Sodium Level 136 Potassium Level 4.0 Chloride Level 102 Carbon Dioxide Level 25.0 Anion Gap 9 Estimat Glomerular Filtration Rate 72 Result Diagram: 09/20/17184909/20/171849 Caprini VTE Risk Assessment Caprini VTE Risk Assessment: Mod/High Risk (score >= 2) Caprini Risk Assessment Model Point Value = 1 Point Value = 2 Point Value = 3 Point Value = 5 Age 41-60 Minor surgery BMI > 25 kg/m2 Swollen legs Varicose veins or History of unexplained or recurrent spontaneous Oral contraceptives or hormone replacement Sepsis (< 1 month) Serious lung disease, including pneumonia (< 1 month) Abnormal pulmonary function Acute myocardial infarction Congestive heart failure (< 1 month) History of inflammatory bowel disease Medical patient at bed rest Age 61-74 Arthroscopic surgery Major open surgery (> 45 min) Laparoscopic surgery (> 45 min) Malignancy Confined to bed (> 72 hours) Immobilizing plaster cast Central venous access Age >= 75 History of VTE Family history of VTE Factor V Leiden Prothrombin [id number] Lupus anticoagulant Anticardiolipin antibodies Elevated serum homocysteine Heparin-induced thrombocytopenia Other congenital or acquired thrombophilia Stroke (< 1 month) Elective arthroplasty Hip, pelvis, or leg fracture Acute spinal cord injury (< 1 month) Prophylaxis Regimen Total Risk Factor Score Risk Level Prophylaxis Regimen 0-1 Low Early ambulation 2 Moderate Order ONE of the following: *Sequential Compression Device (SCD) *Heparin 5000 units SQ BID 3-4 Higher Order ONE of the following medications: *Heparin 5000 units SQ TID *Enoxaparin/Lovenox 40 mg SQ daily (WT < 150 kg, CrCl > 30 mL/min) *Enoxaparin/Lovenox 30 mg SQ daily (WT < 150 kg, CrCl > 10-29 mL/min) *Enoxaparin/Lovenox 30 mg SQ BID (WT < 150 kg, CrCl > 30 mL/min) AND/OR *Sequential Compression Device (SCD) 5 or more Highest Order ONE of the following medications: *Heparin 5000 units SQ TID (Preferred with Epidurals) *Enoxaparin/Lovenox 40 mg SQ daily (WT < 150 kg, CrCl > 30 mL/min) *Enoxaparin/Lovenox 30 mg SQ daily (WT < 150 kg, CrCl > 10-29 mL/min) *Enoxaparin/Lovenox 30 mg SQ BID (WT < 150 kg, CrCl > 30 mL/min) AND *Sequential Compression Device (SCD) Assessment and Plan Assessment and Plan 62-year-old male with a past medical history significant for tongue cancer status post resection and radiation presents with possible GI bleed, Hemoccult positive stool and fecal impaction. 1. Concern for GI bleed Patient anemic with hemoglobin of 8.2 Trend serial H&H every 6 hours Consult gastroenterology Transfuse when necessary Monitor vital signs 2. Severe constipation/fecal impaction Manual disimpaction failed in the emergency department Dulcolax suppository Mineral oil enema Appreciate gastroenterology assistance 3. History of tongue cancer Status post flap release 2 weeks ago with postoperative hemorrhage requiring transfusion Follow H&H Monitor for signs of bleeding 4. Anxiety Continue home Ativan FEN Nothing by mouth Normal saline at 75 cc/hour Electrolytes within normal limits; continue monitor Lovenox Physician Certification 2 Midnight Certification Type: Admission for Inpatient Services Order for Inpatient Services The services are ordered in accordance with Medicare regulations or non- Medicare payer requirements, as applicable. In the case of services not specified as inpatient-only, they are appropriately provided as inpatient services in accordance with the 2-midnight benchmark. Estimated LOS (days): 2 2 days is the estimated time the patient will need to remain in the hospital, assuming treatment plan goals are met and no additional complications. Post-Hospital Plan: Home Edwina Marcano MD Sep 20, 2017 21:54
[2017-09-20] MEDS ORDERED: ENOXAPARIN SODIUM 40 MG/0.4 ML SYRINGE SQ SCH (22:00)
[2017-09-20] MEDS: SODIUM CHLOR 0.9% 1000 ML INJ 1,000 ML IV SCH (22:15)
[2017-09-20 22:24] VITALS: BP 100/96
[2017-09-20] MEDS ORDERED: ACETAMINOPHEN 325 MG TAB PO PRN (23:00)
[2017-09-20] MEDS: LORazepam 1 MG TAB PO PRN (23:57)
[2017-09-20] MEDS: TEMAZEPAM 15 MG CAP PO PRN (23:57)
[2017-09-21] VITALS (7 sets, daily range): BP systolic 107–138; BP diastolic 51–66; PULSE 70–98; RESP 16–20; TEMP 98–98.8; O2SAT 93–100
[2017-09-21] MEDS: MINERAL OIL ENEMA 118 ML BTL RECTAL PRN ×2 (01:47→13:42)
[2017-09-21 04:34] LABS: HEMATOCRIT 21.7 % (39.0-51.0); REVIEW FLAG FINAL
[2017-09-21 04:55] LABS: BICARBONATE 25.9 MEQ/L (21.0-32.0); POTASSIUM 3.8 MEQ/L (3.5-5.1)
[2017-09-21] MEDS: PROMETHAZINE INJ 25 MG/ML VIAL IM PRN ×2 (07:00→12:16)
[2017-09-21] MEDS: MORPHINE SULFATE 4 MG/ML INJ IV PUSH PRN ×2 (07:01→12:19)
[2017-09-21] MEDS: SODIUM CHLORIDE 0.9% FLUSH 10 ML FLUSH IV FLUSH SCH ×2 (09:00→20:24)
[2017-09-21] MEDS: DOCUSATE SODIUM 50 MG/SENNA 8.6 MG TAB PO SCH ×2 (09:37→20:24)
[2017-09-21] MEDS: PANTOPRAZOLE SODIUM 40 MG VIAL IV PUSH SCH (09:37)
[2017-09-21] MEDS ORDERED: BACITRACIN TOP OINT 15 GM TUBE TOPICAL PRN (09:45)
--- NOTE | 2017-09-21 09:48 | RADRPT ---
EXAM DATE/TIME: 09/21/2017 09:06 [facility] COMPARISON: ABDOMEN KUB ONLY, January 27, 2016, 17:55. INDICATIONS : Obstruction. MEDICAL HISTORY : Tongue cancer. Necrosis of tooth. SURGICAL HISTORY : Tongue surgery. ENCOUNTER: Initial ACUITY: 1 day PAIN SCORE: 0/10 LOCATION: Bilateral Abdomen FINDINGS: Supine view of the abdomen was performed. The abdominal bowel gas pattern is normal. No abnormal ma sses, calcifications, or organomegaly is seen. The osseous structures are unremarkable. CONCLUSION: 1. No evidence of obstruction. Harvinder Man MD on September 21, 2017 at 9:45 Board Certified Radiologist. This report was verified electronically.
[2017-09-21] MEDS ORDERED: DIATRIZOATE MEGLUM/DIATRIZOATE SOD 9 ML CUP PO ONE (10:15)
[2017-09-21] MEDS: SODIUM CHLOR 0.9% 1000 ML INJ 1,000 ML IV SCH ×2 (10:56→23:00)
[2017-09-21 11:44] LABS: HEMATOCRIT 21.2 % (39.0-51.0); REVIEW FLAG FINAL
[2017-09-21] MEDS ORDERED: BISACODYL 10 MG SUPP RECTAL PRN (11:45)
[2017-09-21] MEDS ORDERED: MAGNESIUM HYDROXIDE SUSP 30 ML CUP PO PRN (11:45)
[2017-09-21] MEDS ORDERED: SENNOSIDES 8.6 MG TAB PO PRN (11:45)
[2017-09-21] MEDS ORDERED: SODIUM CHLOR 0.9% 250 ML INJ 250 ML IV ONE (14:00)
--- NOTE | 2017-09-21 15:22 | MB ---
cc: LUDWIN ELLIOTT MD DATE OF CONSULTATION: 09/21/2017. REASON FOR CONSULTATION: HISTORY OF PRESENT ILLNESS: This is a 62-year-old gentleman who was admitted to the hospital with weakness and severe constipation. He has a history of carcinoma of the tongue first appearing in 2000. He had a recurrence of this and had a second resection in December of 2015 followed by radiation therapy. Two weeks ago he had a revision of his skin flap to help him with movement and began having significant bleeding postoperatively. He was initially seen here at the hospital. The bleeding was stopped and he was sent home only to be readmitted with recurrent bleeding. He was transferred to [facility] where his revision was done and significant bleeding was present at that institution with what he notes as a hemoglobin down to 8. He then went into the operating room where his revision was repaired and apparently he had laceration of a small artery. He was told at that time that his troponin also was elevated and the question of a small heart attack was raised; however, no further follow up was present as they had recommended CT scanning. The patient refused that. He is anxious about CT scanning as he has had adverse reactions in the past with CT scanning involving problems breathing afterwards. The etiology of that is unclear but he is very insistent about no CT scanning. In any event, he was admitted to the hospital now because of significant constipation. He has tried enemas and stool softeners without significant relief. Here in the hospital, repeat laboratory examination has revealed a hemoglobin of 7.4 and a troponin of 0.15 and we have been asked to see him. He has no chest pain although he has noted in the past a vague left-sided ache which he describes as similar to that of having lifted heavy objects. He does not recall any specific chest discomfort and is unsure when the last episode was or how long it lasted. No real shortness of breath has been present. His risk factors for coronary artery disease are remarkably absent. He has no history of smoking. He is not hypertensive or diabetic, although his lipid status is unknown. PAST MEDICAL HISTORY: His past medical history has otherwise been unremarkable. MEDICATIONS: His medications at home have included: 1. Flomax. 2. Ativan. 3. Restoril. 4. Ibuprofen. 5. Prevacid. 6. Vitamin D. 7. Oxycodone. 8. Promethazine. ALLERGIES: 1. CODEINE. 2. ONDANSETRON. FAMILY HISTORY: Father from lung cancer. He had heart disease later in life. His mother has a history of atrial fibrillation. SOCIAL HISTORY As above. He is a nonsmoker and non-drinker and he does not use recreational drugs. PHYSICAL EXAMINATION: GENERAL: On physical exam, he is awake and alert. He is in no acute distress. VITAL SIGNS: Blood pressure is 116/60, he is afebrile, pulse is 70 and regular. NECK: There is no neck vein distention. Carotids are normal. LUNGS: Clear. CARDIOVASCULAR: Regular rate and rhythm. No significant murmur. No gallop is noted. ABDOMEN: Soft. There is no tenderness or organomegaly. EXTREMITIES: No edema. ASSESSMENT: The patient has had elevated troponins. This very well may be secondary to demand, especially in view of his especially in view of his rather acute events with bleeding and marked anemia. I have ordered an electrocardiogram as well as an echocardiogram and will repeat his troponin tomorrow. I certainly agree with blood transfusions to try to restore his hemoglobin to 9. At this point in time, the patient is very eager to further workup in terms of either nuclear scanning or cardiac catheterization but will follow him along during his catheterization and make further decisions based on the outcome of the above tests. MD YOUSUF Titus/RADHIKA /2:27 PM /3:13 PM
[2017-09-21] MEDS: LACTULOSE SYRUP 20 GM/30 ML CUP PO PRN (16:01)
--- NOTE | 2017-09-21 16:54 | HHI.PR ---
Subjective Remarks Follow-up for anemia, fecal impaction Patient has small bowel movement yesterday, another one after an enema today. Passing a lot of gas. No nausea or vomiting. No fever. No note of hematochezia or melena but has history of hemorrhoids. Troponin is mildly elevated and has history of troponin elevation from [facility], He has no chest pain right now. Patient says that he had chest pain while he was at [facility] that was mostly left-sided, anterior axillary line, pressure- like, nonradiating, no blurring of vision. Abdominal pain is moderate Objective Vitals Vital Signs Date Time Temp Pulse Resp B/P (MAP) Pulse Ox O2 Delivery O2 Flow Rate FiO2 09/21/17 15:48 98.1 85 16 107/51 (69) 98 09/21/17 12:11 98.1 70 18 116/57 (76) 93 09/21/17 08:36 98.2 87 18 119/58 (78) 99 09/21/17 04:15 98.0 89 19 125/65 (85) 99 09/21/17 00:00 98.8 98 19 138/63 (88) 100 09/20/17 22:24 108 16 100/96 (97) 95 09/20/17 20:14 108 16 141/63 (89) 100 Room Air 09/20/17 18:53 18 100 Room Air 09/20/17 17:49 18 09/20/17 17:38 97.9 121 16 121/59 (79) 99 I/O 09/20/17 09/20/17 09/20/17 09/21/17 09/21/17 09/21/17 07:00 15:00 23:00 07:00 15:00 23:00 Intake Total 1000 ml 0 ml 480 ml Balance 1000 ml 0 ml 480 ml Intake Oral 0 ml 480 ml IV Total 1000 ml # Voids 2 # Bowel Movements 0 Result Diagram: 09/21/17 1120 09/21/17 0350 Imaging Last Impressions Abdomen X-Ray 09/21/17 0000 Signed Impressions: Service Date/Time: Thursday, September 21, 2017 09:06 - CONCLUSION: 1. No evidence of obstruction. Harvinder Man MD Objective Remarks Not in distress Pupils equal reactive, pale conjunctiva. Nonicteric. No oral bleeding Trachea midline Regular rate and rhythm, no murmurs Clear breath sounds Abdomen soft, tender, nondistended, positive bowel sounds No edema Alert awake and oriented 3 A/P Problem List: (1) Fecal impaction in rectum ICD Code: K56.41 - Fecal impaction Status: Acute (2) Anemia ICD Code: D64.9 - Anemia, unspecified Status: Acute Assessment and Plan 62-year-old male with a past medical history significant for tongue cancer status post resection and radiation therapy, with recent frenulectomy 09/03/17 complicated by profuse bleeding requiring intubation presenting with anemia and fecal impaction. Blood loss anemia-secondary to GI bleed versus residual anemia from previous bleed. Patient recently had profuse bleeding after frenulectomy, hemoglobin still dropping, continue to monitor hemoglobin and hematocrit every 8 hours, transfuse 1 unit of blood today, consult GI. Transfuse as necessary, monitor vital signs, known to Dr. Mitchell. Patient has history of hemorrhoids Severe constipation, fecal impaction-abdominal x-ray negative for obstruction, status post fleets enema, had a small bowel movement, repeat fleets enema as needed. Patient refuses to have a CT scan of the abdomen, I don't think this is necessary at this point. Give laxatives Including lactulose and magnesium citrate. Non-ST elevated myocardial infarction, troponin elevation-likely from demand ischemia, troponins 0.15, records were requested and reviewed from [facility]. Patient had troponin elevation of 0.34 after intubation, likely secondary to sinus tachycardia/demand ischemia per cardiology. Two echocardiograms were done, one ejection fraction was 50-55%, another one was 35% . Also has MR and TR. Consult cardiology, will repeat echocardiogram in house and troponin troponin and EKG. I did not see any EKG from [facility]. History of tongue cancer - Status post frenulectomy/flap release 2 weeks ago with postoperative hemorrhage requiring transfusion and intubation for airway protection, monitor. Pain control with morphine for now. Mild hypotension - could be secondary to poor oral intake, continue normal saline, recheck CBC and BMP tomorrow. Anxiety-Continue home Ativan FEN Regular diet, Protonix DVT prophylaxis: Pharmacological prophylaxis contraindicated because of anemia and possible bleed Problem Qualifiers (1) Anemia: Qualified Codes: D62 - Acute posthemorrhagic anemia Namrata Gary MD Sep 21, 2017 16:54
[2017-09-21] MEDS ORDERED: MAGNESIUM CITRATE SOLN 300 ML BTL PO ONE (17:00)
[2017-09-21 17:15] LABS: HEMATOCRIT 22.8 % (39.0-51.0); REVIEW FLAG FINAL
[2017-09-21] MEDS ORDERED: MINERAL OIL ENEMA 118 ML BTL RECTAL ONE (17:15)
[2017-09-21] MEDS: LORazepam 1 MG TAB PO PRN (17:53)
[2017-09-21] MEDS: KETOROLAC TROMETHAMINE 30 MG/ML (IVP) VIAL IV PUSH PRN (18:22)
--- NOTE | 2017-09-21 19:15 | ECHRPT ---
Indication: CONCLUSIONS The left ventricular systolic function is low normal with an estimated ejection fraction in the rang e of 50- 55%. Trace mitral valve regurgitation. There is trace tricuspid valve regurgitation. BP: / HR: Rhythm: MEASUREMENTS (Male / Female) Normal Values Technical Quality: 2D ECHO LV Diastolic Diameter PLAX 4.7 cm 4.2 - 5.9 / 3.9 - 5.3 cm LV Systolic Diameter PLAX 3.7 cm IVS Diastolic Thickness 0.9 cm 0.6 - 1.0 / 0.6 - 0.9 cm LVPW Diastolic Thickness 0.9 cm 0.6 - 1.0 / 0.6 - 0.9 cm LV Relative Wall Thickness 0.4 RV Internal Dim ED PLAX 2.4 cm M-MODE Aortic Root Diameter MM 3.8 cm LA Systolic Diameter MM 3.0 cm LA Ao Ratio MM 0.8 AV Cusp Separation MM 1.6 cm DOPPLER Mitral E Point Velocity 73.5 cm/s Mitral A Point Velocity 80.9 cm/s Mitral E to A Ratio 0.9 LV E' Lateral Velocity 13.0 cm/s Mitral E to LV E' Lateral Ratio 5.7 LV E' Septal Velocity 8.5 cm/s Mitral E to LV E' Septal Ratio 8.7 TR Peak Velocity 281.0 cm/s TR Peak Gradient 31.6 mmHg Right Atrial Pressure 10.0 mmHg Pulmonary Artery Systolic Pressu 41.6 mmHg Right Ventricular Systolic Press 41.6 mmHg FINDINGS LEFT VENTRICLE Normal left ventricular size. Wall thickness is normal. The left ventricular systolic function is low normal with an estimated ejection fraction in the rang e of 50- 55%. No regional wall motion abnormalities are present. RIGHT VENTRICLE Normal right ventricular size and systolic function. LEFT ATRIUM The left atrial size is normal. RIGHT ATRIUM The right atrial size is normal. ATRIAL SEPTUM Normal atrial septal thickness. AORTA The aortic root and proximal ascending aorta are not well visualized. MITRAL VALVE Structurally normal mitral valve. Trace mitral valve regurgitation. No mitral valve stenosis. AORTIC VALVE Grossly normal. No aortic valve regurgitation. No aortic valve stenosis. TRICUSPID VALVE Structurally normal tricuspid valve. There is trace tricuspid valve regurgitation. No tricuspid valve stenosis. PULMONARY VALVE The pulmonary valve is not well visualized. PERICARDIUM No pericardial effusion. Rafael Ho DO (Electronically Signed) Final Date:21 September 2017 19:15
[2017-09-21] MEDS: TAMSULOSIN HCL 0.4 MG CAP PO SCH (20:24)
[2017-09-22 00:01] VITALS: BP 121/59; PULSE 78; RESP 20; TEMP 97.9; O2SAT 98
[2017-09-22] MEDS: PROMETHAZINE INJ 25 MG/ML VIAL IM PRN ×4 (00:37→21:28)
[2017-09-22] MEDS: KETOROLAC TROMETHAMINE 30 MG/ML (IVP) VIAL IV PUSH PRN ×2 (00:38→07:44)
[2017-09-22] MEDS: TEMAZEPAM 15 MG CAP PO PRN (01:33)
[2017-09-22] MEDS: LORazepam 1 MG TAB PO PRN ×3 (01:33→16:16)
[2017-09-22 04:50] VITALS: BP 91/52; PULSE 76; RESP 20; TEMP 97.3; O2SAT 98
[2017-09-22 08:00] VITALS: BP 97/56; PULSE 75; RESP 20; TEMP 97.7; O2SAT 97
[2017-09-22 08:14] LABS: AUTOMATED NEUTROPHIL # 2.8 TH/MM3 (1.8-7.7); BASOPHIL % 0.8 % (0.0-2.0); EOSINOPHIL # 0.1 TH/MM3 (0-0.4); EOSINOPHIL % 1.8 % (0.0-4.0); HEMATOCRIT 23.3 % (39.0-51.0); HEMO FLAGS DIFF FINAL; LYMPH % 25.8 % (9.0-44.0); LYMPHOCYTE # 1.2 TH/MM3 (1.0-4.8); MEAN CELL VOLUME 88.9 FL (80.0-100.0); MEAN CORPUSCULAR HEMOGLOBIN 30.2 PG (27.0-34.0); MEAN CORPUSCULAR HGB CONC 33.9 % (32.0-36.0); MONO % 10.6 % (0.0-8.0); PLATELET COUNT 259 TH/MM3 (150-450); RED BLOOD COUNT 2.62 MIL/MM3 (4.50-5.90); RED CELL DISTRIBUTION WIDTH 16.1 % (11.6-17.2); WHITE BLOOD COUNT 4.7 TH/MM3 (4.0-11.0)
--- NOTE | 2017-09-22 08:14 | RADRPT ---
EXAM DATE/TIME: 09/22/2017 07:56 [facility] COMPARISON: ABDOMEN KUB ONLY, September 21, 2017, 9:06. INDICATIONS : Possible obstruction. MEDICAL HISTORY : Tongue cancer. Necrosis of tooth. SURGICAL HISTORY : Tongue surgery. ENCOUNTER: Subsequent ACUITY: 2 days PAIN SCORE: 5/10 LOCATION: abdomen. FINDINGS: Air is seen in multiple loops of nondistended small bowel. Air seen throughout the colon. There is no gross pneumatosis or free air. No abnormal calcifications. Remainder of exam is unchanged. CONCLUSION: 1. Nonobstructive bowel gas pattern. Dayday Arvizu MD on September 22, 2017 at 8:10 Board Certified Radiologist. This report was verified electronically.
[2017-09-22 08:42] LABS: BICARBONATE 28.9 MEQ/L (21.0-32.0); POTASSIUM 4.1 MEQ/L (3.5-5.1)
--- NOTE | 2017-09-22 08:56 | PD.CARD.PN ---
Subjective Subjective Remarks Feels well. No chest pain or dyspnea. Objective Medications Current Medications Medications (Trade) Dose Ordered Sig/Daniel Route Start Time Stop Time Status Last Admin Sodium Chloride 1,000 ml @ 100 mls/hr Q10H IV 09/20/17 21:36 09/21/17 23:00 (NS Flush) 2 ml UNSCH PRN IV FLUSH 09/20/17 21:45 (NS Flush) 2 ml BID IV FLUSH 09/21/17 09:00 (Protonix Inj) 40 mg DAILY IV PUSH 09/21/17 09:00 09/21/17 09:37 (Fleet Mineral Oil Enema) 59 ml DAILY PRN RECTAL 09/20/17 21:45 09/21/17 13:42 (Ativan) 1 mg TID PRN PO 09/20/17 21:45 09/22/17 01:33 (Siomara-Colace) 1 tab BID PO 09/21/17 09:00 09/21/17 20:24 (Flomax) 0.4 mg HS PO 09/21/17 21:00 09/21/17 20:24 (Restoril) 30 mg HS PRN PO 09/20/17 21:45 09/22/17 01:33 (Tylenol) 650 mg Q6HR PRN PO 09/20/17 23:00 09/20/17 23:59 (Phenergan Inj) 12.5 mg Q4H PRN IM 09/21/17 01:45 09/22/17 00:37 (Morphine Inj) 4 mg Q3H PRN IV PUSH 09/21/17 01:45 09/21/17 12:19 (Flu (Quadrivalent) Vaccine Inj) 0.5 ml ONCE ONCE IM 09/22/17 10:00 09/22/17 10:01 (Baciguent Oint) 1 applic Q4HR PRN TOPICAL 09/21/17 09:45 (Milk Of Magnesia Liq) 30 ml Q12H PRN PO 09/21/17 11:45 (Senokot) 17.2 mg Q12H PRN PO 09/21/17 11:45 (Dulcolax Supp) 10 mg DAILY PRN RECTAL 09/21/17 11:45 09/21/17 16:01 (Lactulose Liq) 30 ml DAILY PRN PO 09/21/17 11:45 113/17 16:01 (Toradol Inj) 15 mg Q6H PRN IV PUSH 09/21/17 17:15 09/22/17 07:44 Vital Signs / I&O Vital Signs Date Time Temp Pulse Resp B/P (MAP) Pulse Ox O2 Delivery O2 Flow Rate FiO2 09/22/17 04:50 97.3 76 20 91/52 (65) 98 09/22/17 00:01 97.9 78 20 121/59 (79) 98 09/21/17 19:09 98.1 91 20 132/61 98 09/21/17 18:36 98.0 86 20 122/66 97 09/21/17 15:48 98.1 85 16 107/51 (69) 98 09/21/17 12:11 98.1 70 18 116/57 (76) 93 I/O 09/21/17 09/21/17 09/21/17 09/22/17 09/22/17 09/22/17 07:00 15:00 23:00 07:00 15:00 23:00 Intake Total 0 ml 480 ml 460 ml 643 ml Balance 0 ml 480 ml 460 ml 643 ml Intake Oral 0 ml 480 ml IV Total 643 ml Packed Cells 400 ml Blood Product IV Normal Saline Flush 60 ml # Voids 2 # Bowel Movements 0 3 Physical Exam Lungs clear RRR no murmur Laboratory Laboratory Tests Test 09/21/17 11:20 09/21/17 13:34 09/21/17 16:34 09/21/17 21:14 Hemoglobin 7.2 GM/DL 7.7 GM/DL Hematocrit 21.2 % 22.8 % Troponin I 0.11 NG/ML 0.09 NG/ML Test 09/22/17 07:10 White Blood Count 4.7 TH/MM3 Red Blood Count 2.62 MIL/MM3 Hemoglobin 7.9 GM/DL Hematocrit 23.3 % Mean Corpuscular Volume 88.9 FL Mean Corpuscular Hemoglobin 30.2 PG Mean Corpuscular Hemoglobin Concent 33.9 % Red Cell Distribution Width 16.1 % Platelet Count 259 TH/MM3 Mean Platelet Volume 6.6 FL Neutrophils (%) (Auto) 61.0 % Lymphocytes (%) (Auto) 25.8 % Monocytes (%) (Auto) 10.6 % Eosinophils (%) (Auto) 1.8 % Basophils (%) (Auto) 0.8 % Neutrophils # (Auto) 2.8 TH/MM3 Lymphocytes # (Auto) 1.2 TH/MM3 Monocytes # (Auto) 0.5 TH/MM3 Eosinophils # (Auto) 0.1 TH/MM3 Basophils # (Auto) 0.0 TH/MM3 CBC Comment DIFF FINAL Differential Comment Blood Urea Nitrogen 12 MG/DL Creatinine 0.85 MG/DL Random Glucose 87 MG/DL Calcium Level 8.3 MG/DL Sodium Level 142 MEQ/L Potassium Level 4.1 MEQ/L Chloride Level 108 MEQ/L Carbon Dioxide Level 28.9 MEQ/L Anion Gap 5 MEQ/L Estimat Glomerular Filtration Rate 92 ML/MIN Troponin I 0.07 NG/ML Imaging Last 24 hours Impressions Abdomen X-Ray 09/22/17 0705 Signed Impressions: Service Date/Time: Friday, September 22, 2017 07:56 - CONCLUSION: 1. Nonobstructive bowel gas pattern. Dayday Arvizu MD Assessment and Plan Assessment and Plan Stable CV. Troponin is trending down. Echo is normal. No evidence of OH by enzymes as AST and ALT normal. HBG still low. Will consider lexiscan once HBG stable Harvinder Pino MD Sep 22, 2017 08:56
[2017-09-22] MEDS: DOCUSATE SODIUM 50 MG/SENNA 8.6 MG TAB PO SCH ×2 (09:08→21:24)
[2017-09-22] MEDS: PANTOPRAZOLE SODIUM 40 MG VIAL IV PUSH SCH (09:08)
[2017-09-22] MEDS ORDERED: INFLUENZA VIRUS VACCINE (QUADRIVALENT) 0.5 ML SYR IM ONE (10:00)
--- NOTE | 2017-09-22 11:05 | HHI.PR ---
Subjective Remarks Follow-up for anemia, constipation, elevated troponin, and uncontrolled pain Patient stated that he has not been feeling well since he's been here. He stated that he thought he would get better but he does not feel that he is. Denied any GI bleed but feels like the bleeding is coming from his GI system. Denied any abdominal pain. He stated he felt nauseous and it started when toradol was started. Patient also stated that he does not feel Toradol is control his pain and morphine worked better. He also stated that he had 3 bowel movements. BMs were small. Discussed with patient's nurse who stated that patient have bowel movements. Patient's sister at the bedside at the end of the interview. Objective Vitals Vital Signs Date Time Temp Pulse Resp B/P (MAP) Pulse Ox O2 Delivery O2 Flow Rate FiO2 09/22/17 08:00 97.7 75 20 97/56 (70) 97 09/22/17 04:50 97.3 76 20 91/52 (65) 98 09/22/17 00:01 97.9 78 20 121/59 (79) 98 09/21/17 19:09 98.1 91 20 132/61 98 09/21/17 18:36 98.0 86 20 122/66 97 09/21/17 15:48 98.1 85 16 107/51 (69) 98 09/21/17 12:11 98.1 70 18 116/57 (76) 93 I/O 09/21/17 09/21/17 09/21/17 09/22/17 09/22/17 09/22/17 07:00 15:00 23:00 07:00 15:00 23:00 Intake Total 0 ml 480 ml 460 ml 643 ml Balance 0 ml 480 ml 460 ml 643 ml Intake Oral 0 ml 480 ml IV Total 643 ml Packed Cells 400 ml Blood Product IV Normal Saline Flush 60 ml # Voids 2 # Bowel Movements 0 3 Result Diagram: 09/22/1710 09/22/1710 Objective Remarks GENERAL: thin male in NAD CARDIOVASCULAR: Regular rate and rhythm without murmurs, gallops, or rubs. RESPIRATORY: Breath sounds equal bilaterally. No accessory muscle use. GASTROINTESTINAL: Abdomen soft, mild TTP in the epigastric area with deep palpation, nondistended. MUSCULOSKELETAL: No cyanosis, or edema. BACK: Nontender without obvious deformity. No CVA tenderness. Medications and IVs Current Medications Morphine Sulfate (Morphine Inj) 4 mg ONCE ONCE IV PUSH Last administered on 18:55; Start 09/20/17 at 18:30; Stop 09/20/17 at 18:31; Status DC Sodium Chloride 1,000 ml @ 1,000 mls/hr Q1H IV Last administered on 09/20/17 18:54; Start 09/20/17 at 18:24; Stop 09/20/17 at 19:23; Status DC Sodium Chloride (NS Flush) 2 ml UNSCH PRN IV FLUSH FLUSH AFTER USING IV ACCESS ; Start 09/20/17 at 18:30; Stop 09/20/17 at 22:53; Status DC Mineral Oil (Fleet Mineral Oil Enema) 118 ml ONCE ONCE RECTAL ; Start 09/20/17 at 18:30; Stop 09/20/17 at 18:51; Status DC Lorazepam (Ativan Inj) 1 mg ONCE ONCE IV PUSH Last administered on 09/20/17 20:12; Start 09/20/17 at 19:45; Stop 09/20/17 at 19:46; Status DC Pantoprazole Sodium (Protonix Inj) 40 mg ONCE ONCE IV PUSH Last administered on 09/20/17 21:18; Start 09/20/17 at 21:00; Stop 09/20/17 at 21:01; Status DC Sodium Chloride 1,000 ml @ 100 mls/hr Q10H IV Last administered on 09/21/17 23:00; Start 09/20/17 at 21:36 Sodium Chloride (NS Flush) 2 ml UNSCH PRN IV FLUSH FLUSH AFTER USING IV ACCESS ; Start 09/20/17 at 21:45 Sodium Chloride (NS Flush) 2 ml BID IV FLUSH ; Start 09/21/17 at 09:00 Pantoprazole Sodium (Protonix Inj) 40 mg DAILY IV PUSH Last administered on 09:08; Start 09/21/17 at 09:00 Enoxaparin Sodium (Lovenox Inj) 40 mg Q24H SQ ; Start 09/20/17 at 22:00; Stop 09/21/17 at 16:59; Status DC Bisacodyl (Dulcolax Supp) 10 mg ONCE ONCE RECTAL Last administered on 22:44; Start 09/20/17 at 21:45; Stop 09/20/17 at 21:50; Status DC Mineral Oil (Fleet Mineral Oil Enema) 59 ml DAILY PRN RECTAL constipation Last administered on 09/21/17 13:42; Start 09/20/17 at 21:45 Lorazepam (Ativan) 1 mg TID PRN PO ANXIETY Last administered on 09/22/17 09:08 ; Start 09/20/17 at 21:45 Senna/Docusate Sodium (Siomara-Colace) 1 tab BID PO Last administered on 09:08; Start 09/21/17 at 09:00 Tamsulosin HCl (Flomax) 0.4 mg HS PO Last administered on 09/21/17 20:24; Start 09/21/17 at 21:00 Temazepam (Restoril) 30 mg HS PRN PO INSOMNIA Last administered on 09/22/17 01 :33; Start 09/20/17 at 21:45 Acetaminophen (Tylenol) 650 mg Q6HR PRN PO pain > 2/Fever > 100.4 Last administered on 09/20/17 23:59; Start 09/20/17 at 23:00 Promethazine HCl (Phenergan Inj) 12.5 mg Q4H PRN IM pre-med opiates or n/v Last administered on 09/22/17 00:37; Start 09/21/17 at 01:45 Morphine Sulfate (Morphine Inj) 4 mg Q3H PRN IV PUSH pain > 4 Last administered on 09/21/17 12:19; Start 09/21/17 at 01:45 Influenza Virus Vaccine (Flu (Quadrivalent) Vaccine Inj) 0.5 ml ONCE ONCE IM Last administered on 09/22/17 09:11; Start 09/22/17 at 10:00; Stop 09/22/17 at 10:01; Status DC Bacitracin (Baciguent Oint) 1 applic Q4HR PRN TOPICAL Nasal Irritation; Start 09/21/17 at 09:45 Diatrizoate Meglum/ Diatrizoate Sod ( Gastroshawn Liq) 18 ml ONCE ONCE PO ; Start 09/21/17 at 10:15; Stop 09/21/17 at 10:16; Status DC Magnesium Hydroxide (Milk Of Magnesia Liq) 30 ml Q12H PRN PO Mild constipation ; Start 09/21/17 at 11:45 Sennosides (Senokot) 17.2 mg Q12H PRN PO Moderate constipation; Start 09/21/17 at 11:45 Bisacodyl (Dulcolax Supp) 10 mg DAILY PRN RECTAL SEVERE CONSITIPATION Last administered on 09/21/17 16:01; Start 09/21/17 at 11:45 Lactulose (Lactulose Liq) 30 ml DAILY PRN PO SEVERE CONSITIPATION Last administered on 09/21/17 16:01; Start 09/21/17 at 11:45 Sodium Chloride 250 ml @ 15 mls/hr ONCE ONCE IV Last administered on 14:00; Start 09/21/17 at 14:00; Stop 09/22/17 at 06:39; Status DC Magnesium Citrate (Citroma Liq) 300 ml ONCE ONCE PO Last administered on 17:00; Start 09/21/17 at 17:00; Stop 09/21/17 at 18:04; Status DC Ketorolac Tromethamine (Toradol Inj) 15 mg Q6H PRN IV PUSH breakthrough pain Last administered on 09/22/17 07:44; Start 09/21/17 at 17:15; Stop 09/22/17 at 10:41; Status DC Mineral Oil (Fleet Mineral Oil Enema) 118 ml ONCE ONCE RECTAL Last administered on 09/21/17 17:15; Start 09/21/17 at 17:15; Stop 09/21/17 at 18:04 ; Status DC Morphine Sulfate (Roxanol Liq) 5 mg Q4H PRN PO pain 4-10; Start 09/22/17 at 10 :45; Status UNV A/P Problem List: (1) Fecal impaction in rectum ICD Code: K56.41 - Fecal impaction Status: Acute (2) Anemia ICD Code: D64.9 - Anemia, unspecified Status: Acute Assessment and Plan 62-year-old male with a past medical history significant for tongue cancer status post resection and radiation therapy, with recent frenulectomy 09/03/17 complicated by profuse bleeding requiring intubation presenting with anemia and fecal impaction. Blood loss anemia -secondary to GI bleed versus residual anemia from previous bleed. Patient recently had profuse bleeding after frenulectomy, -Status post transfused with 1 unit packed red blood cells went from 7.2 to 7.9. No active bleeding at the moment. -Continue to trend hemoglobin for stabilization. -Pending consult from GI. Patient on Protonix IV. Severe constipation, fecal impaction -abdominal x-ray negative for obstruction, status post fleets enema, had a small bowel movement, repeat fleets enema as needed. - Patient refuses to have a CT scan of the abdomen -on laxative including lactulose and magnesium citrate. -KUB done this morning shows normal gas pattern. Elevated troponins -Asymptomatic. -Most likely from demand ischemia. Troponin is trending down. -Repeat echo showed EF of 50-55%. -Window Trimmer Apprentice consulted and stated that most likely secondary to demand ischemia. Recommend Lexiscan when hemoglobin is stable. History of tongue cancer - Status post frenulectomy/flap release 2 weeks ago with postoperative hemorrhage requiring transfusion and intubation for airway protection, monitor. -Patient on Toradol but ruling out GI bleed and Toradol is not improving pain. Will discontinue Toradol and give morphine elixir. Mild hypotension - could be secondary to poor oral intake, continue normal saline. Anxiety -Continue home Ativan FEN Regular diet, Protonix DVT prophylaxis: Pharmacological prophylaxis contraindicated because of anemia and possible bleed Problem Qualifiers (1) Anemia: Qualified Codes: D62 - Acute posthemorrhagic anemia Brandi Swnan MD Sep 22, 2017 11:05
[2017-09-22] MEDS: MORPHINE SULFATE 4 MG/ML INJ IV PUSH PRN ×3 (12:43→21:28)
[2017-09-22 13:07] VITALS: BP 92/51; PULSE 86; RESP 20; TEMP 97.8; O2SAT 96
--- NOTE | 2017-09-22 14:35 | PD.CONS ---
HPI History of Present Illness This is a 62 year old male with hx tongue cancer who presented with constipation , anemia, guiac pos stool. He had a flap release on his tongue 2 wks ago at [facility] and subsequently had reucrrent bleeding, required transfusion 1 week ago. He says he swallowed copious amounts of blood at this time. He has been on pain meds, constipated with lower abd discomfort. This is somewaht improved since bowel regimen this admission and he has had multiple BMs. He does admit some black stools but cannot provide further details. He had EGD with dilatation and colonoscopy [address] Allred with findings gastric polyp, colon polyp and empiric dilatation; another EGD with dilatation [address] Mitchell, he is not sure where. Denies hx ulcers, prior GIB. (Ya Lei) PFSH Past Medical History Tongue cancer GERD Past Surgical History Tongue resection in 2016 Flap release 2 weeks ago (Ya Lei) Coded Allergies: lactose (Verified Allergy, Mild, 09/20/17) Lactose intolerance ondansetron (Verified Adverse Reaction, Severe, Nausea/Vomiting, 09/20/17) codeine (Verified Adverse Reaction, Intermediate, NAUSEA, 09/20/17) hydrocodone (Verified Adverse Reaction, Intermediate, Nausea/Vomiting, 09/20/17) oxycodone (Verified Adverse Reaction, Unknown, n/v, 09/22/17) Family History Dad with coronary artery disease, now from lung cancer. Mom with A. fib. Social History Denies tobacco, alcohol and illicit drugs. Quit drinking 20 years ago. (Ya Lei) Review of Systems Constitutional: DENIES: Fever Eyes: DENIES: Blurred vision Ears, nose, mouth, throat: DENIES: Hearing loss Respiratory: DENIES: Hemoptysis Cardiovascular: DENIES: Palpitations Gastrointestinal: COMPLAINS OF: Black stools, Constipation, DENIES: Abdominal pain, Bloody stools, Nausea, Vomiting, Hematemesis Genitourinary: DENIES: Hematuria Musculoskeletal: DENIES: Joint Swelling Neurologic: DENIES: Abnormal gait Psychiatric: DENIES: Confusion (Ya Lei) GI Exam Vitals I&O Vital Signs Date Time Temp Pulse Resp B/P (MAP) Pulse Ox O2 Delivery O2 Flow Rate FiO2 09/22/17 13:07 97.8 86 20 92/51 (65) 96 09/22/17 08:00 97.7 75 20 97/56 (70) 97 09/22/17 04:50 97.3 76 20 91/52 (65) 98 09/22/17 00:01 97.9 78 20 121/59 (79) 98 09/21/17 19:09 98.1 91 20 132/61 98 09/21/17 18:36 98.0 86 20 122/66 97 09/21/17 15:48 98.1 85 16 107/51 (69) 98 I/O 09/21/17 09/21/17 09/21/17 09/22/17 09/22/17 09/22/17 07:00 15:00 23:00 07:00 15:00 23:00 Intake Total 0 ml 480 ml 460 ml 643 ml Balance 0 ml 480 ml 460 ml 643 ml Intake Oral 0 ml 480 ml IV Total 643 ml Packed Cells 400 ml Blood Product IV Normal Saline Flush 60 ml # Voids 2 # Bowel Movements 0 3 Imaging Last Impressions Abdomen X-Ray 09/22/17 0705 Signed Impressions: Service Date/Time: Friday, September 22, 2017 07:56 - CONCLUSION: 1. Nonobstructive bowel gas pattern. Dayday Arvizu MD Laboratory Test 09/21/17 16:34 09/21/17 21:14 09/22/17 07:10 Hemoglobin 7.7 GM/DL 7.9 GM/DL Hematocrit 22.8 % 23.3 % Troponin I 0.09 NG/ML 0.07 NG/ML White Blood Count 4.7 TH/MM3 Red Blood Count 2.62 MIL/MM3 Mean Corpuscular Volume 88.9 FL Mean Corpuscular Hemoglobin 30.2 PG Mean Corpuscular Hemoglobin Concent 33.9 % Red Cell Distribution Width 16.1 % Platelet Count 259 TH/MM3 Mean Platelet Volume 6.6 FL Neutrophils (%) (Auto) 61.0 % Lymphocytes (%) (Auto) 25.8 % Monocytes (%) (Auto) 10.6 % Eosinophils (%) (Auto) 1.8 % Basophils (%) (Auto) 0.8 % Neutrophils # (Auto) 2.8 TH/MM3 Lymphocytes # (Auto) 1.2 TH/MM3 Monocytes # (Auto) 0.5 TH/MM3 Eosinophils # (Auto) 0.1 TH/MM3 Basophils # (Auto) 0.0 TH/MM3 CBC Comment DIFF FINAL Differential Comment Blood Urea Nitrogen 12 MG/DL Creatinine 0.85 MG/DL Random Glucose 87 MG/DL Calcium Level 8.3 MG/DL Sodium Level 142 MEQ/L Potassium Level 4.1 MEQ/L Chloride Level 108 MEQ/L Carbon Dioxide Level 28.9 MEQ/L Anion Gap 5 MEQ/L Estimat Glomerular Filtration Rate 92 ML/MIN Date/Time Source Procedure Growth Status 09/21/17 14:00 Stool Stool Stool Occult Blood (MARINO) - Final HEMOCCULT POSITIVE Complete Physical Examination HEENT: PERRL; normocephalic; atraumatic; no jaundice. CHEST: CTA CARDIAC: RRR ABDOMEN: Soft, nondistended, nontender; no hepatosplenomegaly; bowel sounds are present in all four quadrants. EXTREMITIES: No clubbing, cyanosis, or edema. SKIN: Pale; no rash; no jaundice. AUTOMATIC LINE SET UP MECHANIC: No focal deficits; alert and oriented times three. (Ya Lei) Assessment and Plan Plan ASSESSMENT - anemia, guiac pos stool - hx recent bleeding after tongue surgery, required transfusion. heme pos stool could be from swallowed blood? he mentions some dark stools when he was constipated but cannot provide further details. hgb 8.2 on admission, was 8 1 week ago. - constipation, impaction - improved. KUB 11/4 normal gas pattern PLAN - EGD Sunday - obtain consent - NPO after midnight - mech soft diet per ST - monitor HH - transfuse as needed - notify GI of active bleeding This pt seen by myself and Dr Cervantes and this note is written on his behalf (Ya Lei) Physician Comments Agreed to proceed with EGD, will obtain consent and schedule it for sunday. Thank you for the consult. (Dano Cervantes MD) Ya Lei Sep 22, 2017 14:35 Dano Cervantes MD Sep 22, 2017 17:31
[2017-09-22 18:31] VITALS: BP 98/55; PULSE 77; RESP 20; TEMP 98.7; O2SAT 98
[2017-09-22 20:00] VITALS: BP 110/52; PULSE 89; RESP 20; TEMP 98.1; O2SAT 99
[2017-09-22] MEDS: SODIUM CHLORIDE 0.9% FLUSH 10 ML FLUSH IV FLUSH SCH (21:00)
[2017-09-22] MEDS: TAMSULOSIN HCL 0.4 MG CAP PO SCH (21:24)
[2017-09-22] MEDS: SODIUM CHLOR 0.9% 1000 ML INJ 1,000 ML IV SCH (22:40)
[2017-09-23] VITALS: BP 117/55; PULSE 72; RESP 18; TEMP 99.4; O2SAT 96
[2017-09-23] MEDS: LORazepam 1 MG TAB PO PRN ×3 (01:35→21:09)
[2017-09-23] MEDS: TEMAZEPAM 15 MG CAP PO PRN (01:35)
[2017-09-23] MEDS: MORPHINE SULFATE 4 MG/ML INJ IV PUSH PRN ×6 (01:54→23:56)
[2017-09-23] MEDS: PROMETHAZINE INJ 25 MG/ML VIAL IM PRN ×6 (01:55→23:55)
[2017-09-23 04:00] VITALS: BP 119/57; PULSE 70; RESP 18; TEMP 98.8; O2SAT 96
[2017-09-23] MEDS: SODIUM CHLOR 0.9% 1000 ML INJ 1,000 ML IV SCH ×2 (04:28→12:05)
--- NOTE | 2017-09-23 07:34 | PD.CARD.PN ---
Subjective Subjective Remarks Feels well. No chest pain or dyspnea. Refused chest x-ray secondary to worried about radiation scatter to his neck and tongue area Objective Medications Current Medications Medications (Trade) Dose Ordered Sig/Daniel Route Start Time Stop Time Status Last Admin Sodium Chloride 1,000 ml @ 100 mls/hr Q10H IV 09/20/17 21:36 09/22/17 22:40 (NS Flush) 2 ml UNSCH PRN IV FLUSH 09/20/17 21:45 (NS Flush) 2 ml BID IV FLUSH 09/21/17 09:00 (Protonix Inj) 40 mg DAILY IV PUSH 09/21/17 09:00 09/22/17 09:08 (Fleet Mineral Oil Enema) 59 ml DAILY PRN RECTAL 09/20/17 21:45 09/21/17 13:42 (Ativan) 1 mg TID PRN PO 09/20/17 21:45 09/23/17 01:35 (Siomara-Colace) 1 tab BID PO 09/21/17 09:00 09/22/17 21:24 (Flomax) 0.4 mg HS PO 09/21/17 21:00 09/22/17 21:24 (Restoril) 30 mg HS PRN PO 09/20/17 21:45 09/23/17 01:35 (Tylenol) 650 mg Q6HR PRN PO 09/20/17 23:00 09/20/17 23:59 (Phenergan Inj) 12.5 mg Q4H PRN IM 09/21/17 01:45 09/23/17 07:00 (Morphine Inj) 4 mg Q3H PRN IV PUSH 09/21/17 01:45 09/23/17 07:00 (Baciguent Oint) 1 applic Q4HR PRN TOPICAL 09/21/17 09:45 (Milk Of Magnesia Liq) 30 ml Q12H PRN PO 09/21/17 11:45 (Senokot) 17.2 mg Q12H PRN PO 09/21/17 11:45 (Dulcolax Supp) 10 mg DAILY PRN RECTAL 09/21/17 11:45 09/21/17 16:01 (Lactulose Liq) 30 ml DAILY PRN PO 09/21/17 11:45 09/21/17 16:01 (Roxanol Liq) 5 mg Q4H PRN PO 09/22/17 10:45 Vital Signs / I&O Vital Signs Date Time Temp Pulse Resp B/P (MAP) Pulse Ox O2 Delivery O2 Flow Rate FiO2 09/23/17 00:00 99.4 72 18 117/55 (75) 96 09/22/17 20:00 98.1 89 20 110/52 (71) 99 09/22/17 18:31 98.7 77 20 98/55 (69) 98 09/22/17 13:07 97.8 86 20 92/51 (65) 96 09/22/17 08:00 97.7 75 20 97/56 (70) 97 I/O 09/22/17 09/22/17 09/22/17 09/23/17 09/23/17 09/23/17 07:00 15:00 23:00 07:00 15:00 23:00 Intake Total 643 ml Balance 643 ml IV Total 643 ml Physical Exam Lungs clear RRR no murmur Laboratory Laboratory Tests Test 09/22/17 16:33 Hemoglobin 9.5 GM/DL Assessment and Plan Assessment and Plan HBG back to 9 range. Discussed doing lexiscan vs. cath to rule in or out coronary disease. He is gvery concerned that any amount of radiation may compromise his ability to swallow and wishes to defer decision. Discussed importance of knowing whether CAD is present and he understands. He will confer with family and we'll decide tomorrow Harvinder Pino MD Sep 23, 2017 07:34
[2017-09-23 08:02] VITALS: BP 111/58; PULSE 80; RESP 20; TEMP 97.9; O2SAT 96
[2017-09-23] MEDS: PANTOPRAZOLE SODIUM 40 MG VIAL IV PUSH SCH (08:11)
[2017-09-23] MEDS: DOCUSATE SODIUM 50 MG/SENNA 8.6 MG TAB PO SCH ×2 (08:11→21:09)
--- NOTE | 2017-09-23 08:55 | EKG ---
Date Performed: 09/21/2017 Time Performed: 19:34:22 PTAGE: 62 years EKG: Sinus rhythm POSSIBLE RIGHT VENTRICULAR CONDUCTION DELAY Compared to prior tracing no significant change BORDERLI NE ECG PREVIOUS TRACING : 08/08/2017 09.45 DOCTOR: Rd Jacob Interpretating Date/Time 09/23/2017 08:54:19
[2017-09-23] MEDS: SODIUM CHLORIDE 0.9% FLUSH 10 ML FLUSH IV FLUSH SCH ×2 (09:00→21:00)
[2017-09-23 09:14] LABS: MEAN CELL VOLUME 88.8 FL (80.0-100.0); MEAN CORPUSCULAR HEMOGLOBIN 30.2 PG (27.0-34.0); MEAN CORPUSCULAR HGB CONC 33.9 % (32.0-36.0); PLATELET COUNT 283 TH/MM3 (150-450); RED BLOOD COUNT 2.92 MIL/MM3 (4.50-5.90); RED CELL DISTRIBUTION WIDTH 15.6 % (11.6-17.2); REVIEW FLAG FINAL; WHITE BLOOD COUNT 4.8 TH/MM3 (4.0-11.0)
[2017-09-23 09:22] LABS: BICARBONATE 25.4 MEQ/L (21.0-32.0); POTASSIUM 4.5 MEQ/L (3.5-5.1)
[2017-09-23] MEDS ORDERED: BISACODYL 10 MG SUPP RECTAL ONE (10:15)
[2017-09-23] MEDS ORDERED: POLYETHYLENE GLYCOL 17 GM PKG PO ONE (10:15)
--- NOTE | 2017-09-23 10:45 | HHI.PR ---
Subjective Remarks Follow-up for anemia due to questionable bleed, uncontrolled pain, and constipation Patient asked questions about having further cardiac workup. He stated that he is very concerned about having workup done when he is asymptomatic. Patient stated that he has not had any bleeding and is unsure if he wants to EGD done tomorrow but will determine later. Patient stated that he has not had any bowel movement since yesterday and felt constipated. He is very upset about the healthcare system and a physician he did not want to name. Otherwise he stated that the morphine worked a lot better for him and his pain is controlled. He does stated that he had a headache but did not want anything for it. Deny any visual changes, nausea or vomiting or focal neurological deficit. Patient also stated that he was on to medication for his GERD and was wondering why that was not restarted. Patient stated that he does not want further radiation exposed to him. He stated that those medications worked well for him. His nurse was at the bedside during part of the interview. Objective Vitals Vital Signs Date Time Temp Pulse Resp B/P (MAP) Pulse Ox O2 Delivery O2 Flow Rate FiO2 09/23/17 08:02 97.9 80 20 111/58 (75) 96 09/23/17 04:00 98.8 70 18 119/57 (77) 96 09/23/17 00:00 99.4 72 18 117/55 (75) 96 09/22/17 20:00 98.1 89 20 110/52 (71) 99 09/22/17 18:31 98.7 77 20 98/55 (69) 98 09/22/17 13:07 97.8 86 20 92/51 (65) 96 I/O 09/22/17 09/22/17 09/22/17 09/23/17 09/23/17 09/23/17 07:00 15:00 23:00 07:00 15:00 23:00 Intake Total 643 ml Balance 643 ml IV Total 643 ml # Voids 3 Result Diagram: 09/23/1782909/23/1730 Objective Remarks GENERAL: thin male in NAD CARDIOVASCULAR: Regular rate and rhythm without murmurs, gallops, or rubs. RESPIRATORY: Breath sounds equal bilaterally. No accessory muscle use. GASTROINTESTINAL: Abdomen soft, no TTP, nondistended. MUSCULOSKELETAL: No cyanosis, or edema. BACK: Nontender without obvious deformity. No CVA tenderness. Medications and IVs Current Medications Morphine Sulfate (Morphine Inj) 4 mg ONCE ONCE IV PUSH Last administered on 18:55; Start 09/20/17 at 18:30; Stop 09/20/17 at 18:31; Status DC Sodium Chloride 1,000 ml @ 1,000 mls/hr Q1H IV Last administered on 09/20/17 18:54; Start 09/20/17 at 18:24; Stop 09/20/17 at 19:23; Status DC Sodium Chloride (NS Flush) 2 ml UNSCH PRN IV FLUSH FLUSH AFTER USING IV ACCESS ; Start 09/20/17 at 18:30; Stop 09/20/17 at 22:53; Status DC Mineral Oil (Fleet Mineral Oil Enema) 118 ml ONCE ONCE RECTAL ; Start 09/20/17 at 18:30; Stop 09/20/17 at 18:51; Status DC Lorazepam (Ativan Inj) 1 mg ONCE ONCE IV PUSH Last administered on 09/20/17 20:12; Start 09/20/17 at 19:45; Stop 09/20/17 at 19:46; Status DC Pantoprazole Sodium (Protonix Inj) 40 mg ONCE ONCE IV PUSH Last administered on 09/20/17 21:18; Start 09/20/17 at 21:00; Stop 09/20/17 at 21:01; Status DC Sodium Chloride 1,000 ml @ 100 mls/hr Q10H IV Last administered on 09/22/17 22:40; Start 09/20/17 at 21:36 Sodium Chloride (NS Flush) 2 ml UNSCH PRN IV FLUSH FLUSH AFTER USING IV ACCESS ; Start 09/20/17 at 21:45 Sodium Chloride (NS Flush) 2 ml BID IV FLUSH ; Start 09/21/17 at 09:00 Pantoprazole Sodium (Protonix Inj) 40 mg DAILY IV PUSH Last administered on 08:11; Start 09/21/17 at 09:00 Enoxaparin Sodium (Lovenox Inj) 40 mg Q24H SQ ; Start 09/20/17 at 22:00; Stop 09/21/17 at 16:59; Status DC Bisacodyl (Dulcolax Supp) 10 mg ONCE ONCE RECTAL Last administered on 22:44; Start 09/20/17 at 21:45; Stop 09/20/17 at 21:50; Status DC Mineral Oil (Fleet Mineral Oil Enema) 59 ml DAILY PRN RECTAL constipation Last administered on 09/21/17 13:42; Start 09/20/17 at 21:45 Lorazepam (Ativan) 1 mg TID PRN PO ANXIETY Last administered on 09/23/17 01:35 ; Start 09/20/17 at 21:45 Senna/Docusate Sodium (Siomara-Colace) 1 tab BID PO Last administered on 08:11; Start 09/21/17 at 09:00 Tamsulosin HCl (Flomax) 0.4 mg HS PO Last administered on 09/22/17 21:24; Start 09/21/17 at 21:00 Temazepam (Restoril) 30 mg HS PRN PO INSOMNIA Last administered on 09/23/17 01 :35; Start 09/20/17 at 21:45 Acetaminophen (Tylenol) 650 mg Q6HR PRN PO pain > 2/Fever > 100.4 Last administered on 09/20/17 23:59; Start 09/20/17 at 23:00 Promethazine HCl (Phenergan Inj) 12.5 mg Q4H PRN IM pre-med opiates or n/v Last administered on 09/23/17 07:00; Start 09/21/17 at 01:45 Morphine Sulfate (Morphine Inj) 4 mg Q3H PRN IV PUSH pain > 4 Last administered on 09/23/17 07:00; Start 09/21/17 at 01:45 Influenza Virus Vaccine (Flu (Quadrivalent) Vaccine Inj) 0.5 ml ONCE ONCE IM Last administered on 09/22/17 09:11; Start 09/22/17 at 10:00; Stop 09/22/17 at 10:01; Status DC Bacitracin (Baciguent Oint) 1 applic Q4HR PRN TOPICAL Nasal Irritation; Start 09/21/17 at 09:45 Diatrizoate Meglum/ Diatrizoate Sod ( Gastroview Liq) 18 ml ONCE ONCE PO ; Start 09/21/17 at 10:15; Stop 09/21/17 at 10:16; Status DC Magnesium Hydroxide (Milk Of Magnesia Liq) 30 ml Q12H PRN PO Mild constipation ; Start 09/21/17 at 11:45 Sennosides (Senokot) 17.2 mg Q12H PRN PO Moderate constipation; Start 09/21/17 at 11:45 Bisacodyl (Dulcolax Supp) 10 mg DAILY PRN RECTAL SEVERE CONSITIPATION Last administered on 09/21/17 16:01; Start 09/21/17 at 11:45 Lactulose (Lactulose Liq) 30 ml DAILY PRN PO SEVERE CONSITIPATION Last administered on 09/21/17 16:01; Start 09/21/17 at 11:45 Sodium Chloride 250 ml @ 15 mls/hr ONCE ONCE IV Last administered on 14:00; Start 09/21/17 at 14:00; Stop 09/22/17 at 06:39; Status DC Magnesium Citrate (Citroma Liq) 300 ml ONCE ONCE PO Last administered on 17:00; Start 09/21/17 at 17:00; Stop 09/21/17 at 18:04; Status DC Ketorolac Tromethamine (Toradol Inj) 15 mg Q6H PRN IV PUSH breakthrough pain Last administered on 09/22/17 07:44; Start 09/21/17 at 17:15; Stop 09/22/17 at 10:41; Status DC Mineral Oil (Fleet Mineral Oil Enema) 118 ml ONCE ONCE RECTAL Last administered on 09/21/17 17:15; Start 09/21/17 at 17:15; Stop 09/21/17 at 18:04 ; Status DC Morphine Sulfate (Roxanol Liq) 5 mg Q4H PRN PO pain 4-10; Start 09/22/17 at 10 :45 Non-Formulary Medication 30 mg BID PO ; Start 09/23/17 at 10:15; Status UNV Polyethylene Glycol (Miralax) 17 gm DAILY PO ; Start 09/24/17 at 09:00; Status UNV Polyethylene Glycol (Miralax) 17 gm ONCE ONCE PO ; Start 09/23/17 at 10:15; Stop 09/23/17 at 10:16; Status UNV Bisacodyl (Dulcolax Supp) 10 mg ONCE ONCE RECTAL ; Start 09/23/17 at 10:15; Stop 09/23/17 at 10:16; Status UNV A/P Problem List: (1) Fecal impaction in rectum ICD Code: K56.41 - Fecal impaction Status: Acute (2) Anemia ICD Code: D64.9 - Anemia, unspecified Status: Acute Assessment and Plan 62-year-old male with a past medical history significant for tongue cancer status post resection and radiation therapy, with recent frenulectomy 09/03/17 complicated by profuse bleeding requiring intubation presenting with anemia and fecal impaction. Blood loss anemia -secondary to GI bleed versus residual anemia from previous bleed. Patient recently had profuse bleeding after frenulectomy, -Status post transfused with 1 unit packed red blood cells went from 7.2 to 7.9 to 9.5-8.8. No active bleeding at the moment and this has been stable. -Currently on Protonix. GI consulted and recommended EGD on Sunday. Patient stated that he may not want this but will decide based on his hospital course. Severe constipation, fecal impaction -abdominal x-ray negative for obstruction, status post fleets enema, had a small bowel movement, repeat fleets enema as needed. - Patient refuses to have a CT scan of the abdomen because he does not want to be exposed to radiation. -On Siomara-Colace. Continues to be constipated. Will add MiraLAX schedule. We' ll also give suppository. Elevated troponins -Asymptomatic. -Most likely from demand ischemia. Troponin is trending down. -Repeat echo showed EF of 50-55%. -Signing Agent consulted and stated that most likely secondary to demand ischemia. -Signing Agent recommend Lexiscan versus LHC. Patient stated that since he is asymptomatic he did not want further workup. I went over extensively the risks and benefits with the patient and also told him that he should speak to his louver mortiser operator in regards to this. History of tongue cancer - Status post frenulectomy/flap release 2 weeks ago with postoperative hemorrhage requiring transfusion and intubation for airway protection, monitor. -Continue morphine elixir. Mild hypotension - Improving. Could be secondary to poor oral intake, continue normal saline. Anxiety -Continue home Ativan GERD -On Protonix. Will restart Prevacid. DVT prophylaxis: Pharmacological prophylaxis contraindicated because of anemia and possible bleed Discharge Planning EGD scheduled for tomorrow. Problem Qualifiers (1) Anemia: Qualified Codes: D62 - Acute posthemorrhagic anemia Brandi Swann MD Sep 23, 2017 10:45
[2017-09-23] MEDS: PANTOPRAZOLE SOD 40 MG DELAYED RELEASE TAB PO SCH ×2 (11:29→21:09)
[2017-09-23 12:04] VITALS: BP 112/56; PULSE 86; RESP 20; TEMP 98.3; O2SAT 96
--- NOTE | 2017-09-23 15:53 | HHI.GIFU ---
Subjective Remarks Resting in bed. Patient very concerned about his tongue becoming damaged during EGD. Has been thinking about whether he would like to proceed with EGD and plans to decide on how his HH is. Notified patient that his HH WAS 7.9/23.3 on 09/22 and today HH is 8.8/26. (Lynda Mitchell) Objective Vitals I&O Vital Signs Date Time Temp Pulse Resp B/P (MAP) Pulse Ox O2 Delivery O2 Flow Rate FiO2 09/23/17 12:04 98.3 86 20 112/56 (74) 96 09/23/17 08:02 97.9 80 20 111/58 (75) 96 09/23/17 04:00 98.8 70 18 119/57 (77) 96 09/23/17 00:00 99.4 72 18 117/55 (75) 96 09/22/17 20:00 98.1 89 20 110/52 (71) 99 09/22/17 18:31 98.7 77 20 98/55 (69) 98 I/O 09/22/17 09/22/17 09/22/17 09/23/17 09/23/17 09/23/17 07:00 15:00 23:00 07:00 15:00 23:00 Intake Total 643 ml Balance 643 ml IV Total 643 ml # Voids 3 Laboratory Laboratory Tests Test 09/22/17 16:33 09/23/17 08:30 Hemoglobin 9.5 8.8 White Blood Count 4.8 Red Blood Count 2.92 Hematocrit 26.0 Mean Corpuscular Volume 88.8 Mean Corpuscular Hemoglobin 30.2 Mean Corpuscular Hemoglobin Concent 33.9 Red Cell Distribution Width 15.6 Platelet Count 283 Mean Platelet Volume 6.8 Hematology Comments Blood Urea Nitrogen 10 Creatinine 1.00 Random Glucose 84 Calcium Level 8.2 Sodium Level 141 Potassium Level 4.5 Chloride Level 106 Carbon Dioxide Level 25.4 Anion Gap 10 Estimat Glomerular Filtration Rate 76 Date/Time Source Procedure Growth Status 09/21/17 14:00 Stool Stool Stool Occult Blood (MARINO) - Final HEMOCCULT POSITIVE Complete Imaging Last Impressions Abdomen X-Ray 09/22/17 0705 Signed Impressions: Service Date/Time: Friday, September 22, 2017 07:56 - CONCLUSION: 1. Nonobstructive bowel gas pattern. Dayday Arvizu MD Physical Exam HEENT: Normocephalic; atraumatic; no jaundice. NECK: Neck is supple CHEST: CTA CARDIAC: RRR ABDOMEN: Soft, nondistended, nontender; no hepatosplenomegaly; bowel sounds are present in all four quadrants. EXTREMITIES: No clubbing, cyanosis, or edema. SKIN: Normal; no rash; no jaundice. PRESS WRITER: No focal deficits; alert and oriented times three. (Lynda Mitchell) Assessment and Plan Plan ASSESSMENT - Anemia, guaiac positive stool - hx recent bleeding after tongue surgery, required transfusion. Heme pos stool could be from swallowed blood? Patient mentioned some dark stools when he was constipated but cannot provide further details. HH 8.2/23.4 on admission. Decreased to 7.2/21.2 on 09/21. S/P 1 unit PRBC on 09/21. HH 8.8/26.0 - Constipation, impaction - improved. KUB 09/22 normal gas pattern PLAN - EGD Sunday, patient agreed to this - Obtain consents - NPO after midnight - Mechanical soft diet per ST - Monitor HH, transfuse as needed - Notify GI of active bleeding - Supportive care - Further recommendations to follow based on results of above Patient seen and examined by Dr. Cervantes and myself and this note is written on his behalf (Lynda Mitchell) Physician Comments Consent obtained, will proceed with EGD in AM. Further recommendations to follow. (Dano Cervantes MD) Lynda Mitchell Sep 23, 2017 15:53 Dano Cervantes MD Sep 23, 2017 20:27
[2017-09-23 16:59] VITALS: BP 121/58; PULSE 84; RESP 20; TEMP 98; O2SAT 97
[2017-09-23 20:00] VITALS: BP 113/56; PULSE 93; RESP 20; TEMP 97.4; O2SAT 98
[2017-09-23] MEDS: TAMSULOSIN HCL 0.4 MG CAP PO SCH (21:09)
[2017-09-24] VITALS: BP 121/78; PULSE 87; RESP 18; TEMP 97.8; O2SAT 97
[2017-09-24] MEDS: SODIUM CHLOR 0.9% 1000 ML INJ 1,000 ML IV SCH ×3 (00:28→20:28)
[2017-09-24] MEDS: TEMAZEPAM 15 MG CAP PO PRN (00:39)
[2017-09-24 04:00] VITALS: BP 112/53; PULSE 72; RESP 18; TEMP 97.8; O2SAT 97
[2017-09-24] MEDS: PROMETHAZINE INJ 25 MG/ML VIAL IM PRN ×3 (05:06→14:25)
[2017-09-24] MEDS: MORPHINE SULFATE 4 MG/ML INJ IV PUSH PRN ×2 (05:06→09:58)
[2017-09-24] MEDS: LORazepam 1 MG TAB PO PRN ×2 (05:15→14:27)
[2017-09-24 07:57] VITALS: BP 120/60; PULSE 84; RESP 20; TEMP 98.7; O2SAT 96
--- NOTE | 2017-09-24 09:15 | GIPROC ---
[facility] [address] [facility]. [facility], [address] EGD PROCEDURE REPORT EXAM DATE: 09/24/2017 PATIENT NAME: Jose Welsh MR #: [id number] BIRTHDATE: 1955 ATTENDING: Dano Cervantes MD ORDER #: [id number] PARK INTERPRETIVE RANGER: Ramya Crenshaw and Ciara Maradiaga STATUS: inpatient INDICATIONS: The patient is a 62 yr old male here for an EGD due to anemia PROCEDURE PERFORMED: EGD, diagnostic MEDICATIONS: None and Per Anesthesia. TOPICAL ANESTHETIC: none CONSENT: The patient understands the risks and benefits of the procedure and understands that these risks include, but are not limited to: sedation, allergic reaction, infection, perforation and/or bleeding. Alternative means of evaluation and treatment include, among others: physical exam, x-rays, and/or surgical intervention. The patient elects to proceed with this endoscopic procedure. medical equipment was checked for proper function. Hand hygiene and appropriate measures for infection prevention was taken. After the risks, benefits and alternatives of the procedure were thoroughly explained, Informed consent was verified, confirmed and timeout was successfully executed by the treatment team. The patient was anesthetized with topical anesthesia and the Pentax [id number] endoscope was introduced through the mouth and advanced to the second portion of the duodenum. Retroflexion was performed and was normal The gastroscope was then slowly withdrawn and removed. ESOPHAGUS: The esophagus was otherwise normal. STOMACH: The stomach otherwise appeared normal. DUODENUM: The duodenal mucosa appeared normal in the bulb and second portion of the duodenum. ADVERSE EVENTS: There were no complications. IMPRESSIONS: 1. The esophagus was otherwise normal 2. The stomach otherwise appeared normal 3. Normal duodenal mucosa in the bulb and second portion of the duodenum 4. Retroflexion was performed and was normal RECOMMENDATIONS: No treatment PATIENT CONDITION: stable DISPOSITION: Observation REPEAT EXAM: NONE Dano Cervantes MD eSigned: Dano Cervantes MD 09/24/2017 9:14 AM cc: PATIENT NAME: Jose Welsh MR#: [id number]
[2017-09-24] MEDS: PANTOPRAZOLE SODIUM 40 MG VIAL IV PUSH SCH (09:56)
[2017-09-24] MEDS: POLYETHYLENE GLYCOL 17 GM PKG PO SCH (09:57)
[2017-09-24] MEDS: PANTOPRAZOLE SOD 40 MG DELAYED RELEASE TAB PO SCH ×2 (09:57→20:11)
[2017-09-24] MEDS: DOCUSATE SODIUM 50 MG/SENNA 8.6 MG TAB PO SCH ×2 (09:57→20:11)
[2017-09-24] MEDS: SODIUM CHLORIDE 0.9% FLUSH 10 ML FLUSH IV FLUSH SCH ×2 (09:58→20:12)
--- NOTE | 2017-09-24 11:10 | HHI.PR ---
Subjective Remarks Follow-up for question will GI bleed Patient returned from EGD which was negative. He denies any bleeding. He is complaining of some pain at the site of surgery. I asked the pains worsen he stated he doesn't know but he is very concerned want to see ENT physician. He also states continues to have a headache which is in the frontal area. Deny any nasal or sinus congestion. Denies any visual changes, nausea vomiting, or focal neurological deficits. Otherwise nose complaints. His nurse is at the bedside during the interview. He stated that he had a couple small bowel movements yesterday. Objective Vitals Vital Signs Date Time Temp Pulse Resp B/P (MAP) Pulse Ox O2 Delivery O2 Flow Rate FiO2 09/24/17 09:22 98.0 74 16 96/51 (66) 95 09/24/17 07:57 98.7 84 20 120/60 (80) 96 09/24/17 04:00 97.8 72 18 112/53 (72) 97 09/24/17 00:00 97.8 87 18 121/78 (92) 97 09/23/17 20:00 97.4 93 20 113/56 (75) 98 09/23/17 16:59 98.0 84 20 121/58 (79) 97 09/23/17 12:04 98.3 86 20 112/56 (74) 96 09/23/17 11:12 19 I/O 09/23/17 09/23/17 09/23/17 09/24/17 09/24/17 09/24/17 07:00 15:00 23:00 07:00 15:00 23:00 Intake Total 1000 ml 2475 ml 200 ml Output Total 900 ml Balance 1000 ml 2475 ml -900 ml 200 ml Intake Oral 660 ml IV Total 1000 ml 1815 ml Other 200 ml Output Urine Total 900 ml # Voids 3 2 # Bowel Movements 1 1 Result Diagram: 09/23/1782909/23/1730 Objective Remarks GENERAL: thin male in NAD HEENT: + small whitish substance sublingual otherwise no discharge or erythema noted. CARDIOVASCULAR: Regular rate and rhythm without murmurs, gallops, or rubs. RESPIRATORY: Breath sounds equal bilaterally. No accessory muscle use. GASTROINTESTINAL: Abdomen soft, no TTP, nondistended. MUSCULOSKELETAL: No cyanosis, or edema. BACK: Nontender without obvious deformity. No CVA tenderness. Medications and IVs Current Medications Morphine Sulfate (Morphine Inj) 4 mg ONCE ONCE IV PUSH Last administered on 18:55; Start 09/20/17 at 18:30; Stop 09/20/17 at 18:31; Status DC Sodium Chloride 1,000 ml @ 1,000 mls/hr Q1H IV Last administered on 09/20/17 18:54; Start 09/20/17 at 18:24; Stop 09/20/17 at 19:23; Status DC Sodium Chloride (NS Flush) 2 ml UNSCH PRN IV FLUSH FLUSH AFTER USING IV ACCESS ; Start 09/20/17 at 18:30; Stop 09/20/17 at 22:53; Status DC Mineral Oil (Fleet Mineral Oil Enema) 118 ml ONCE ONCE RECTAL ; Start 09/20/17 at 18:30; Stop 09/20/17 at 18:51; Status DC Lorazepam (Ativan Inj) 1 mg ONCE ONCE IV PUSH Last administered on 09/20/17 20:12; Start 09/20/17 at 19:45; Stop 09/20/17 at 19:46; Status DC Pantoprazole Sodium (Protonix Inj) 40 mg ONCE ONCE IV PUSH Last administered on 09/20/17 21:18; Start 09/20/17 at 21:00; Stop 09/20/17 at 21:01; Status DC Sodium Chloride 1,000 ml @ 100 mls/hr Q10H IV Last administered on 09/24/17 00:28; Start 09/20/17 at 21:36 Sodium Chloride (NS Flush) 2 ml UNSCH PRN IV FLUSH FLUSH AFTER USING IV ACCESS Last administered on 09/24/17 09:58; Start 09/20/17 at 21:45 Sodium Chloride (NS Flush) 2 ml BID IV FLUSH ; Start 09/21/17 at 09:00 Pantoprazole Sodium (Protonix Inj) 40 mg DAILY IV PUSH Last administered on 09:56; Start 09/21/17 at 09:00 Enoxaparin Sodium (Lovenox Inj) 40 mg Q24H SQ ; Start 09/20/17 at 22:00; Stop 09/21/17 at 16:59; Status DC Bisacodyl (Dulcolax Supp) 10 mg ONCE ONCE RECTAL Last administered on 22:44; Start 09/20/17 at 21:45; Stop 09/20/17 at 21:50; Status DC Mineral Oil (Fleet Mineral Oil Enema) 59 ml DAILY PRN RECTAL constipation Last administered on 09/21/17 13:42; Start 09/20/17 at 21:45 Lorazepam (Ativan) 1 mg TID PRN PO ANXIETY Last administered on 09/24/17 05:15 ; Start 09/20/17 at 21:45 Senna/Docusate Sodium (Siomara-Colace) 1 tab BID PO Last administered on 09:57; Start 09/21/17 at 09:00 Tamsulosin HCl (Flomax) 0.4 mg HS PO Last administered on 09/23/17 21:09; Start 09/21/17 at 21:00 Temazepam (Restoril) 30 mg HS PRN PO INSOMNIA Last administered on 09/24/17 00 :39; Start 09/20/17 at 21:45 Acetaminophen (Tylenol) 650 mg Q6HR PRN PO pain > 2/Fever > 100.4 Last administered on 09/20/17 23:59; Start 09/20/17 at 23:00 Promethazine HCl (Phenergan Inj) 12.5 mg Q4H PRN IM pre-med opiates or n/v Last administered on 09/24/17 09:58; Start 09/21/17 at 01:45 Morphine Sulfate (Morphine Inj) 4 mg Q3H PRN IV PUSH pain > 4 Last administered on 09/24/17 09:58; Start 09/21/17 at 01:45 Influenza Virus Vaccine (Flu (Quadrivalent) Vaccine Inj) 0.5 ml ONCE ONCE IM Last administered on 09/22/17 09:11; Start 09/22/17 at 10:00; Stop 09/22/17 at 10:01; Status DC Bacitracin (Baciguent Oint) 1 applic Q4HR PRN TOPICAL Nasal Irritation; Start 09/21/17 at 09:45 Diatrizoate Meglum/ Diatrizoate Sod ( Gastroview Liq) 18 ml ONCE ONCE PO ; Start 09/21/17 at 10:15; Stop 09/21/17 at 10:16; Status DC Magnesium Hydroxide (Milk Of Magnesia Liq) 30 ml Q12H PRN PO Mild constipation ; Start 09/21/17 at 11:45 Sennosides (Senokot) 17.2 mg Q12H PRN PO Moderate constipation; Start 09/21/17 at 11:45 Bisacodyl (Dulcolax Supp) 10 mg DAILY PRN RECTAL SEVERE CONSITIPATION Last administered on 09/21/17 16:01; Start 09/21/17 at 11:45 Lactulose (Lactulose Liq) 30 ml DAILY PRN PO SEVERE CONSITIPATION Last administered on 09/21/17 16:01; Start 09/21/17 at 11:45 Sodium Chloride 250 ml @ 15 mls/hr ONCE ONCE IV Last administered on 14:00; Start 09/21/17 at 14:00; Stop 09/22/17 at 06:39; Status DC Magnesium Citrate (Citroma Liq) 300 ml ONCE ONCE PO Last administered on 17:00; Start 09/21/17 at 17:00; Stop 09/21/17 at 18:04; Status DC Ketorolac Tromethamine (Toradol Inj) 15 mg Q6H PRN IV PUSH breakthrough pain Last administered on 09/22/17 07:44; Start 09/21/17 at 17:15; Stop 09/22/17 at 10:41; Status DC Mineral Oil (Fleet Mineral Oil Enema) 118 ml ONCE ONCE RECTAL Last administered on 09/21/17 17:15; Start 09/21/17 at 17:15; Stop 09/21/17 at 18:04 ; Status DC Morphine Sulfate (Roxanol Liq) 5 mg Q4H PRN PO pain 4-10; Start 09/22/17 at 10 :45 Pantoprazole Sodium (Protonix) 40 mg BID PO Last administered on 09/24/17 09: 57; Start 09/23/17 at 10:15 Polyethylene Glycol (Miralax) 17 gm DAILY PO Last administered on 09/24/17 09: 57; Start 09/24/17 at 09:00 Polyethylene Glycol (Miralax) 17 gm ONCE ONCE PO Last administered on 11:07; Start 09/23/17 at 10:15; Stop 09/23/17 at 11:01; Status DC Bisacodyl (Dulcolax Supp) 10 mg ONCE ONCE RECTAL Last administered on t 11:07; Start 09/23/17 at 10:15; Stop 09/23/17 at 11:01; Status DC A/P Problem List: (1) Fecal impaction in rectum ICD Code: K56.41 - Fecal impaction Status: Acute (2) Anemia ICD Code: D64.9 - Anemia, unspecified Status: Acute Assessment and Plan 62-year-old male with a past medical history significant for tongue cancer status post resection and radiation therapy, with recent frenulectomy 09/03/17 complicated by profuse bleeding requiring intubation presenting with anemia and fecal impaction. Blood loss anemia -Most likely secondary to bleeding after frenulectomy, -Status post transfused with 1 unit packed red blood cells went from 7.2 to 7.9 to 9.5-8.8. -No active bleed bleeding and EGDs negative. Severe constipation, fecal impaction -abdominal x-ray negative for obstruction, status post fleets enema, had a small bowel movement, repeat fleets enema as needed. - Patient refuses to have a CT scan of the abdomen because he does not want to be exposed to radiation. -On Siomara-Colace and MiraLAX. Patient received a suppository yesterday. Patient does have lactulose when necessary for severe constipation. Told patient's nurse to give patient lactulose and on top of his schedule bowel regimen. Elevated troponins -Asymptomatic. -Most likely from demand ischemia. Troponin is trending down. -Repeat echo showed EF of 50-55%. -Gunner'S Mate consulted and stated that most likely secondary to demand ischemia. -Gunner'S Mate recommend Lexiscan versus LHC. Patient stated that since he is asymptomatic he did not want further workup. I went over extensively the risks and benefits with the patient and also told him that he should speak to his safe and vault service mechanic in regards to this. History of tongue cancer - Status post frenulectomy/flap release 2 weeks ago with postoperative hemorrhage requiring transfusion and intubation for airway protection, monitor. -Continue morphine elixir. -Patient complaining of pain around the surgical area and wants to see ENT. Will consult ENT. Headache -No neurological signs to seems to be more due to tension headache. Recommend a CT scan the brain since this is day 2. Patient declined any CT scans despite recommendations. He stated that he does not want to be exposed to any radiation. Patient is aware of the consequences of not ruling out a bleed with a CT scan. Mild hypotension - Improving. Could be secondary to poor oral intake, continue normal saline. Anxiety -Continue home Ativan GERD -On Protonix. on Prevacid. DVT prophylaxis: SCDs. Problem Qualifiers (1) Anemia: Qualified Codes: D62 - Acute posthemorrhagic anemia Brandi Swann MD Sep 24, 2017 11:10
[2017-09-24] MEDS ORDERED: LIDOCAINE HCL 1% PF 5 ML AMPULE OTHER ONE (12:00)
[2017-09-24] MEDS ORDERED: PROPOFOL 200 MG/20 ML AMP IV ONE (12:00)
[2017-09-24 12:28] VITALS: BP 119/56; PULSE 63; RESP 20; TEMP 98; O2SAT 99
--- NOTE | 2017-09-24 12:55 | PD.CARD.PN ---
Subjective Subjective Remarks Feels well. No chest pain or dyspnea. Discussed further work up regarding elevated troponin and he wishes to defer any further cardiac testing at this time. Objective Medications Current Medications Medications (Trade) Dose Ordered Sig/Daniel Route Start Time Stop Time Status Last Admin Sodium Chloride 1,000 ml @ 100 mls/hr Q10H IV 09/20/17 21:36 09/24/17 00:28 (NS Flush) 2 ml UNSCH PRN IV FLUSH 09/20/17 21:45 09/24/17 09:58 (NS Flush) 2 ml BID IV FLUSH 09/21/17 09:00 (Protonix Inj) 40 mg DAILY IV PUSH 09/21/17 09:00 09/24/17 09:56 (Fleet Mineral Oil Enema) 59 ml DAILY PRN RECTAL 09/20/17 21:45 09/21/17 13:42 (Ativan) 1 mg TID PRN PO 09/20/17 21:45 09/24/17 05:15 (Siomara-Colace) 1 tab BID PO 09/21/17 09:00 09/24/17 09:57 (Flomax) 0.4 mg HS PO 09/21/17 21:00 09/23/17 21:09 (Restoril) 30 mg HS PRN PO 09/20/17 21:45 09/24/17 00:39 (Tylenol) 650 mg Q6HR PRN PO 09/20/17 23:00 09/20/17 23:59 (Phenergan Inj) 12.5 mg Q4H PRN IM 09/21/17 01:45 09/24/17 09:58 (Baciguent Oint) 1 applic Q4HR PRN TOPICAL 09/21/17 09:45 (Milk Of Magnesia Liq) 30 ml Q12H PRN PO 09/21/17 11:45 (Senokot) 17.2 mg Q12H PRN PO 09/21/17 11:45 (Dulcolax Supp) 10 mg DAILY PRN RECTAL 09/21/17 11:45 09/21/17 16:01 (Lactulose Liq) 30 ml DAILY PRN PO 09/21/17 11:45 09/21/17 16:01 (Roxanol Liq) 5 mg Q4H PRN PO 09/22/17 10:45 (Protonix) 40 mg BID PO 09/23/17 10:15 09/24/17 09:57 (Miralax) 17 gm DAILY PO 09/24/17 09:00 09/24/17 09:57 Vital Signs / I&O Vital Signs Date Time Temp Pulse Resp B/P (MAP) Pulse Ox O2 Delivery O2 Flow Rate FiO2 09/24/17 12:28 98.0 63 20 119/56 (77) 99 09/24/17 09:22 98.0 74 16 96/51 (66) 95 09/24/17 07:57 98.7 84 20 120/60 (80) 96 09/24/17 04:00 97.8 72 18 112/53 (72) 97 09/24/17 00:00 97.8 87 18 121/78 (92) 97 09/23/17 20:00 97.4 93 20 113/56 (75) 98 09/23/17 16:59 98.0 84 20 121/58 (79) 97 I/O 09/23/17 09/23/17 09/23/17 09/24/17 09/24/17 09/24/17 07:00 15:00 23:00 07:00 15:00 23:00 Intake Total 1000 ml 2475 ml 200 ml Output Total 900 ml Balance 1000 ml 2475 ml -900 ml 200 ml Intake Oral 660 ml IV Total 1000 ml 1815 ml Other 200 ml Output Urine Total 900 ml # Voids 3 2 # Bowel Movements 1 1 Physical Exam Lungs clear RRR no murmur Assessment and Plan Assessment and Plan HBG back to 9 range. Discussed doing lexiscan vs. cath to rule in or out coronary disease. He is gvery concerned that any amount of radiation may compromise his ability to swallow and wishes to defer decision. Discussed importance of knowing whether CAD is present and he understands. He will confer with family and we'll decide tomorrow Harvinder Pino MD Sep 24, 2017 12:55
[2017-09-24] MEDS: MORPHINE SULFATE ORAL SOLN 10 MG/0.5 ML SYRINGE PO PRN ×3 (14:27→23:23)
[2017-09-24 16:34] VITALS: BP 129/52; PULSE 90; RESP 20; TEMP 97.8; O2SAT 98
[2017-09-24] MEDS: LACTULOSE SYRUP 20 GM/30 ML CUP PO PRN (17:14)
[2017-09-24] MEDS: PROMETHAZINE HCL SYRUP 6.25 MG/5 ML CUP PO PRN ×2 (18:41→23:24)
[2017-09-24] MEDS: NYSTAT/DIPHENHY/LIDO MOUTHWASH (Adult) 120ML SWISH-SWAL SCH ×2 (18:41→22:20)
--- NOTE | 2017-09-24 19:29 | MB ---
cc: GEORGE MISHRA MD DATE OF CONSULTATION 09/24/2017 CHIEF COMPLAINT Tongue bleeding. HISTORY OF THE PRESENT ILLNESS The patient is a pleasant 62-year-old male known to our practice with a history of tongue cancer. He had tethering of his tongue and recently over the last 2+ weeks had release of the tethering of the tongue flap anteriorly. He noted that he did very well initially and was having satisfactory articulation however, he subsequently had severe tongue bleeding for which he had to have transfusion and was seen back with Dr. Kennedy's group in [place], [place] for control of the tongue bleeding which unfortunately caused more tethering of the tongue although was still improved from baseline prior to the initial surgery. The patient notes that he has not had any bleeding in the last 8 days. However, his hemoglobin and hematocrit are still in the 20s. He did have an upper scope recently in the last 24 hours which did not show any bleeding as well. He was seen by speech therapy as well. PHYSICAL EXAMINATION GENERAL: On examination the patient currently appears stable and is articulating much better than when I saw him in clinic prior to sending him to Dr. Kennedy's group, although it is reportedly worse articulation than he noted it was immediately after the procedure. On upper flexible fiberoptic laryngoscopy there was no bleeding from the tongue and the oropharynx, hypopharynx and larynx appeared otherwise stable with mobile true vocal cords bilaterally. ASSESSMENT History of tongue bleed and tongue pain after recent surgery done in [place], [place]. PLAN I discussed the patient minimizing tongue manipulation and he was trying to unfortunately move it as much as possible to minimize any further tethering. Patient discussed how he was told by the surgeons to maximize tongue manipulation as much as possible to prevent any further tethering and his speech is extremely important to him. I asked him to try to find a balance between speaking, articulation of his tongue and safety so that he will not have any further bleeding as he already had transfusions recently and is still not completely out of the huitron. The patient understands. We also discussed him just having soft foods for now for the next week or so and no hot foods for the next week to minimize any further bleeding. I know the patient had roast beef on his tray today with hot mashed potatoes which he was preparing to eat. He agreed to have mashed potatoes but holding off on the roast beef currently. We discussed when the patient is able to be discharged for him to possibly blenderize his food for the next week or two if he wants to have any of the food that takes heavy tongue manipulation to digest because he still is not completely out of the huitron for the bleeding. The patient understands. I also recommend the patient to have viscous lidocaine swish and spit twice a day as needed for the tongue pain. We discussed lidocaine lollipops but I understand that the hospital does not have any of those currently. The patient understands the above. Thank you for this consultation. We are currently available for further consultation. George Mishra MD CCP/KK /6:27 PM /7:09 PM
[2017-09-24] MEDS: TAMSULOSIN HCL 0.4 MG CAP PO SCH (20:11)
[2017-09-24 20:30] VITALS: BP 148/65; PULSE 109; RESP 17; TEMP 98.2; O2SAT 98
[2017-09-25] VITALS (7 sets, daily range): BP systolic 90–142; BP diastolic 50–66; PULSE 69–123; RESP 17–20; TEMP 97.6–100.5; O2SAT 95–100
[2017-09-25] MEDS: TEMAZEPAM 15 MG CAP PO PRN (01:34)
[2017-09-25] MEDS: SODIUM CHLOR 0.9% 1000 ML INJ 1,000 ML IV SCH (02:25)
[2017-09-25] MEDS: PROMETHAZINE HCL SYRUP 6.25 MG/5 ML CUP PO PRN ×5 (04:29→21:37)
[2017-09-25] MEDS: MORPHINE SULFATE ORAL SOLN 10 MG/0.5 ML SYRINGE PO PRN ×5 (04:31→21:38)
[2017-09-25 07:21] LABS: HEMATOCRIT 23.9 % (39.0-51.0); MEAN CELL VOLUME 88.1 FL (80.0-100.0); MEAN CORPUSCULAR HEMOGLOBIN 30.2 PG (27.0-34.0); MEAN CORPUSCULAR HGB CONC 34.3 % (32.0-36.0); PLATELET COUNT 287 TH/MM3 (150-450); RED BLOOD COUNT 2.71 MIL/MM3 (4.50-5.90); REVIEW FLAG FINAL; WHITE BLOOD COUNT 4.2 TH/MM3 (4.0-11.0)
[2017-09-25 07:49] LABS: BICARBONATE 28.8 MEQ/L (21.0-32.0)
[2017-09-25] MEDS: POLYETHYLENE GLYCOL 17 GM PKG PO SCH (08:05)
[2017-09-25] MEDS: PANTOPRAZOLE SOD 40 MG DELAYED RELEASE TAB PO SCH ×2 (08:05→21:39)
[2017-09-25] MEDS: DOCUSATE SODIUM 50 MG/SENNA 8.6 MG TAB PO SCH ×2 (08:05→21:39)
[2017-09-25] MEDS: PANTOPRAZOLE SODIUM 40 MG VIAL IV PUSH SCH (08:05)
[2017-09-25] MEDS: LORazepam 1 MG TAB PO PRN ×3 (08:06→23:30)
[2017-09-25] MEDS: SODIUM CHLORIDE 0.9% FLUSH 10 ML FLUSH IV FLUSH SCH ×2 (08:06→21:00)
--- NOTE | 2017-09-25 10:14 | HHI.PR ---
Subjective Remarks Follow-up for anemia, constipation, uncontrolled pain and tongue cancer Patient feels pain is not controlled. He stated that he does think morphine is the best medication for him. Patient asking for increased dosage. I asked patient does he eat food right away after taking the pain medication he stated yes. Patient feels like them Magic mouthwash isn't doing much but doesn't mind taking it. He stated that his headache resolved. Patient is not ambulating much. He also has not had a bowel movement since 2 days ago and he did get a suppository this morning. Headache resolved. Discussed with patient's nurse. Objective Vitals Vital Signs Date Time Temp Pulse Resp B/P (MAP) Pulse Ox O2 Delivery O2 Flow Rate FiO2 09/25/17 05:37 98.2 72 17 117/58 (77) 97 09/25/17 00:30 98.9 86 17 142/65 (90) 100 09/24/17 20:30 98.2 109 17 148/65 (92) 98 09/24/17 16:34 97.8 90 20 129/52 (77) 98 09/24/17 12:28 98.0 63 20 119/56 (77) 99 I/O 09/24/17 09/24/17 09/24/17 09/25/17 09/25/17 09/25/17 07:00 15:00 23:00 07:00 15:00 23:00 Intake Total 1331 ml 720 ml 360 ml Output Total 900 ml Balance -900 ml 1331 ml 720 ml 360 ml Intake Oral 720 ml 360 ml IV Total 1131 ml Other 200 ml Output Urine Total 900 ml # Voids 3 3 # Bowel Movements 1 1 Result Diagram: 09/25/17 0647 09/25/17 0647 Objective Remarks GENERAL: thin male in NAD CARDIOVASCULAR: Regular rate and rhythm without murmurs, gallops, or rubs. RESPIRATORY: Breath sounds equal bilaterally. No accessory muscle use. GASTROINTESTINAL: Abdomen soft, no TTP, nondistended. MUSCULOSKELETAL: No cyanosis, or edema. BACK: Nontender without obvious deformity. No CVA tenderness. Medications and IVs Current Medications Morphine Sulfate (Morphine Inj) 4 mg ONCE ONCE IV PUSH Last administered on t 18:55; Start 09/20/17 at 18:30; Stop 09/20/17 at 18:31; Status DC Sodium Chloride 1,000 ml @ 1,000 mls/hr Q1H IV Last administered on 09/20/17 18:54; Start 09/20/17 at 18:24; Stop 09/20/17 at 19:23; Status DC Sodium Chloride (NS Flush) 2 ml UNSCH PRN IV FLUSH FLUSH AFTER USING IV ACCESS ; Start 09/20/17 at 18:30; Stop 09/20/17 at 22:53; Status DC Mineral Oil (Fleet Mineral Oil Enema) 118 ml ONCE ONCE RECTAL ; Start 09/20/17 at 18:30; Stop 09/20/17 at 18:51; Status DC Lorazepam (Ativan Inj) 1 mg ONCE ONCE IV PUSH Last administered on 09/20/17 20:12; Start 09/20/17 at 19:45; Stop 09/20/17 at 19:46; Status DC Pantoprazole Sodium (Protonix Inj) 40 mg ONCE ONCE IV PUSH Last administered on 09/20/17 21:18; Start 09/20/17 at 21:00; Stop 09/20/17 at 21:01; Status DC Sodium Chloride 1,000 ml @ 100 mls/hr Q10H IV Last administered on 09/25/17 02:25; Start 09/20/17 at 21:36 Sodium Chloride (NS Flush) 2 ml UNSCH PRN IV FLUSH FLUSH AFTER USING IV ACCESS Last administered on 09/24/17 09:58; Start 09/20/17 at 21:45 Sodium Chloride (NS Flush) 2 ml BID IV FLUSH ; Start 09/21/17 at 09:00 Pantoprazole Sodium (Protonix Inj) 40 mg DAILY IV PUSH Last administered on 08:05; Start 09/21/17 at 09:00 Enoxaparin Sodium (Lovenox Inj) 40 mg Q24H SQ ; Start 09/20/17 at 22:00; Stop 09/21/17 at 16:59; Status DC Bisacodyl (Dulcolax Supp) 10 mg ONCE ONCE RECTAL Last administered on 22:44; Start 09/20/17 at 21:45; Stop 09/20/17 at 21:50; Status DC Mineral Oil (Fleet Mineral Oil Enema) 59 ml DAILY PRN RECTAL constipation Last administered on 09/21/17 13:42; Start 09/20/17 at 21:45 Lorazepam (Ativan) 1 mg TID PRN PO ANXIETY Last administered on 09/25/17 08:06 ; Start 09/20/17 at 21:45 Senna/Docusate Sodium (Siomara-Colace) 1 tab BID PO Last administered on 08:05; Start 09/21/17 at 09:00 Tamsulosin HCl (Flomax) 0.4 mg HS PO Last administered on 09/24/17 20:11; Start 09/21/17 at 21:00 Temazepam (Restoril) 30 mg HS PRN PO INSOMNIA Last administered on 09/25/17 01 :34; Start 09/20/17 at 21:45 Acetaminophen (Tylenol) 650 mg Q6HR PRN PO Fever > 100.4 Last administered on 09/20/17 23:59; Start 09/20/17 at 23:00 Promethazine HCl (Phenergan Inj) 12.5 mg Q4H PRN IM pre-med opiates or n/v Last administered on 09/24/17 14:25; Start 09/21/17 at 01:45; Stop 09/24/17 at 18:17; Status DC Morphine Sulfate (Morphine Inj) 4 mg Q3H PRN IV PUSH pain > 4 Last administered on 09/24/17 09:58; Start 09/21/17 at 01:45; Stop 09/24/17 at 11:22 ; Status DC Influenza Virus Vaccine (Flu (Quadrivalent) Vaccine Inj) 0.5 ml ONCE ONCE IM Last administered on 09/22/17 09:11; Start 09/22/17 at 10:00; Stop 09/22/17 at 10:01; Status DC Bacitracin (Baciguent Oint) 1 applic Q4HR PRN TOPICAL Nasal Irritation; Start 09/21/17 at 09:45 Diatrizoate Meglum/ Diatrizoate Sod ( Gastroview Liq) 18 ml ONCE ONCE PO ; Start 09/21/17 at 10:15; Stop 09/21/17 at 10:16; Status DC Magnesium Hydroxide (Milk Of Magnesia Liq) 30 ml Q12H PRN PO Mild constipation ; Start 09/21/17 at 11:45 Sennosides (Senokot) 17.2 mg Q12H PRN PO Moderate constipation Last administered on 09/25/17 08:05; Start 09/21/17 at 11:45 Bisacodyl (Dulcolax Supp) 10 mg DAILY PRN RECTAL SEVERE CONSITIPATION Last administered on 09/21/17 16:01; Start 09/21/17 at 11:45 Lactulose (Lactulose Liq) 30 ml DAILY PRN PO SEVERE CONSITIPATION Last administered on 09/24/17 17:14; Start 09/21/17 at 11:45 Sodium Chloride 250 ml @ 15 mls/hr ONCE ONCE IV Last administered on 14:00; Start 09/21/17 at 14:00; Stop 09/22/17 at 06:39; Status DC Magnesium Citrate (Citroma Liq) 300 ml ONCE ONCE PO Last administered on 17:00; Start 09/21/17 at 17:00; Stop 09/21/17 at 18:04; Status DC Ketorolac Tromethamine (Toradol Inj) 15 mg Q6H PRN IV PUSH breakthrough pain Last administered on 09/22/17 07:44; Start 09/21/17 at 17:15; Stop 09/22/17 at 10:41; Status DC Mineral Oil (Fleet Mineral Oil Enema) 118 ml ONCE ONCE RECTAL Last administered on 09/21/17 17:15; Start 09/21/17 at 17:15; Stop 09/21/17 at 18:04 ; Status DC Morphine Sulfate (Roxanol Liq) 5 mg Q4H PRN PO pain 4-10 Last administered on 09/25/17 08:06; Start 09/22/17 at 10:45; Stop 09/25/17 at 09:47; Status DC Pantoprazole Sodium (Protonix) 40 mg BID PO Last administered on 09/25/17 08: 05; Start 09/23/17 at 10:15 Polyethylene Glycol (Miralax) 17 gm DAILY PO Last administered on 09/25/17 08: 05; Start 09/24/17 at 09:00 Polyethylene Glycol (Miralax) 17 gm ONCE ONCE PO Last administered on 11:07; Start 09/23/17 at 10:15; Stop 09/23/17 at 11:01; Status DC Bisacodyl (Dulcolax Supp) 10 mg ONCE ONCE RECTAL Last administered on 11:07; Start 09/23/17 at 10:15; Stop 09/23/17 at 11:01; Status DC Promethazine HCl (Phenergan Liq) 12.5 mg Q4HR PRN PO nausea/vomiting Last administered on 09/25/17 08:05; Start 09/24/17 at 16:00 Multi-Ingredient Mouthwash/Gargle (Magic Mouthwash Adult Liq) 5 ml QID SWISH- SWAL Last administered on 09/24/17 22:20; Start 09/24/17 at 18:00; Stop at 09:47; Status DC Lactulose (Lactulose Liq) 30 ml BID PO ; Start 09/25/17 at 21:00 Morphine Sulfate (Roxanol Liq) 10 mg Q4H PRN PO pain 4-10; Start 09/25/17 at 09:45 Lidocaine HCl (Xylocaine 2% Viscous) 15 ml Q4H PRN SWISH-SPIT pain 1-3; Start 09/25/17 at 09:45 A/P Problem List: (1) Fecal impaction in rectum ICD Code: K56.41 - Fecal impaction Status: Acute (2) Anemia ICD Code: D64.9 - Anemia, unspecified Status: Acute Assessment and Plan 62-year-old male with a past medical history significant for tongue cancer status post resection and radiation therapy, with recent frenulectomy 09/03/17 complicated by profuse bleeding requiring intubation presenting with anemia and fecal impaction. Blood loss anemia -Most likely secondary to bleeding after frenulectomy, -Status post transfused with 1 unit packed red blood cells went from 7.2 to 7.9 to 9.5-8.8. -No active bleed bleeding and EGDs negative. -Most likely secondary to frenulectomy. Per Dr. Mishra ENT physician he stated that patient is not out of the window for active bleeding. Patient was given extensive directions by Dr. Mishra on how to prevent this from happening. Severe constipation, fecal impaction -abdominal x-ray negative for obstruction, status post fleets enema, had a small bowel movement, repeat fleets enema as needed. - Patient refuses to have a CT scan of the abdomen because he does not want to be exposed to radiation. -On Siomara-Colace and MiraLAX. Received suppository this morning. He also presents to receive lactulose and milk of magnesia with no improvement. will schedule lactulose twice a day. -Recommend increase ambulation. Patient agreed to this. Elevated troponins -Asymptomatic. -Most likely from demand ischemia. Troponin is trending down. -Repeat echo showed EF of 50-55%. -Pawn Shop Keeper consulted and stated that most likely secondary to demand ischemia. -Pawn Shop Keeper recommend Lexiscan versus LHC. At the moment patient does not want further workup. History of tongue cancer - Status post frenulectomy/flap release 2 weeks ago with postoperative hemorrhage requiring transfusion and intubation for airway protection, monitor. -Pain is not controlled. Patient fills morphine helped him the most.. Will increase morphine dosage. Also recommended to patient to try to take medication at least an hour before any oral intake. -Will give vicious lidocaine as directed by ENT to help with pain. Discontinue Magic mouthwash. -Dr. Mishra recommended a soft diet. Headache, resolved. -No neurological signs to seems to be more due to tension headache. Recommend a CT scan the brain since this is day 2. Patient declined any CT scans despite recommendations. Mild hypotension - Improving. Most likely secondary to poor oral intake. Anxiety -Continue home Ativan GERD -On Protonix. on Prevacid. DVT prophylaxis: SCDs. Problem Qualifiers (1) Anemia: Qualified Codes: D62 - Acute posthemorrhagic anemia Brandi Swann MD Sep 25, 2017 10:14
[2017-09-25] MEDS: LIDOCAINE VISCOUS 2% SOLN 15 ML UDC SWISH-SPIT PRN (12:03)
[2017-09-25] MEDS ORDERED: LACTULOSE SYRUP 20 GM/30 ML CUP PO SCH (21:00)
[2017-09-25] MEDS: TAMSULOSIN HCL 0.4 MG CAP PO SCH (21:39)
[2017-09-25] MEDS ORDERED: fentaNYL 25 MCG/HR PATCH T-DERMAL STA (21:43)
--- NOTE | 2017-09-25 23:39 | MB ---
cc: SERRANOTERRANCE DATE OF CONSULTATION 09/25/17 REASON FOR CONSULTATION 1. History of squamous cell carcinoma of the tongue. 2. History of bleeding and anemia 3. Recommendations regarding pain management. PATIENT PROFILE The patient is a 62-year-old male who is . This is his third marriage. He has one son. He was born in [place]. He works for [employer]. He previously was a it field technician. He stopped drinking approximately 22 years ago and previously was alcoholic consuming six drinks a day for about 20 years. He does not smoke. He enjoys singing in congregation, but due to the cancer of the oral cavity he is unable to do this. HISTORY OF PRESENT ILLNESS The patient is a 62-year-old male who presented with a squamous cell carcinoma of the right side of the tongue in 2008 which was surgically excised with negative margins. He developed superficial recurrences in the same area and underwent multiple laser surgeries for pre-cancerous lesions. Unfortunately, he developed invasive squamous cell cancer involving the junction of the tongue and the floor of the mouth on the right side in November of 2015 without evidence of metastatic disease. He had surgery performed on 01/17/[address] Quincy Lamb consisting of a direct layrngoscopy, esophagoscopy, bronchoscopy, tracheostomy, right modified neck dissection, davey-glossectomy, partial pharyngectomy, flap closure. He was found to have an invasive squamous cell cancer. Tumor size 1.7 cm, maximum depth of invasion was 1.5 cm. He had blood vessel and lymphatic invasion present as well as perineural invasion. Margins were negative. The final pathologic stage was T1 N0 M0, HPV negative with lymphovascular and perineural invasion. He unfortunately developed partial necrosis of the right side of the tongue following surgery. He had a difficult time recovering. He received subsequent radiation oncology in [address] Quarles. He did well with the radiation and has had no evidence of recurrent head and neck cancer. On April 17, 2017, he had a CT scan of the oral cavity and immediately following this had problems with swelling and pain involving the tongue which he attributes to the CAT scan. This has in fact partially persisted. At one point, he developed an infection of bone. 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 He has been followed by three oral surgeons outside of this area. His original surgeon is Dr. Lamb in [place]. He is also being followed by a surgeon at [facility] who three weeks ago performed an operation an area where the tongue on the right side was connected to floor of the mouth. He also has a third ENT surgeon in [place]. Two weeks ago, following the surgery to the floor of the mouth he developed severe bleeding, losing several units of blood. He required transfusions. He ended up in [facility] and was transferred to [place]. He was discharged home and has had problems with uncontrolled pain in the area where he required additional surgery to stop the bleeding. He remains anemic. He recently developed severe constipation and rectal pain secondary to the use of narcotics. He still has pain in the oral cavity. He takes morphine sulfate 10 mg every four hours. The pain relief lasts for about three hours. The constipation is better. He is on a number of laxatives. He has had no evidence of recurrent bleeding. His current CBC and platelet count from 09/25 hemoglobin 8.2, white count 4200 and platelets of 282, 000. He has had no recent iron studies. PAST SURGICAL HISTORY 1. Definitive surgery for cancer right posterior tongue performed on [address] Quincy Lamb consisting of right davey-glossectomy. 2. Previous history of gastrostomy tube 3. Multiple surgeries in the past involving the right side of the tone 4: surgery approximately 4 weeks ago to release the right front part of the tongue from the floor of the mouth complicated by bleeding 2 weeks later and pain at operative site PAST MEDICAL HISTORY 1. Alcoholism more than 20 years ago 2. Anxiety 3. Arthritis 4. Squamous cell carcinoma of the tongue as described above without evidence of recurrent disease. 5. Recent bleeding following surgery to release the area where the tongue was bound to the floor of the mouth on the right side. MEDICATIONS Current 1. Flomax 2. Protonix 3. Lactulose 4. Morphine sulfate 10 mg q.4 h 5. Phenergan 6. Ativan 7. Oral Lidocaine 8. Protonix 9. Senokot 10. MiraLax 11. Restoril 12. Dulcolax 13. 14. Ondansetron p.r.n. ALLERGIES INTOLERANCE TO OXYCODONE FAMILY HISTORY Noncontributory. REVIEW OF SYSTEMS Notable for weakness, fatigue, difficulty swallowing, pain in the oral cavity where he had his recent surgery and bleeding. Diminished stamina. Constipation from narcotics. PHYSICAL EXAMINATION GENERAL: A pleasant, articulate gentleman. He is comfortable, but he tells me that he needs to have morphine again because the pain is beginning to resurface. VITAL SIGNS: Blood pressure is 90/60, respiratory rate 20, pulse 70, afebrile. O2 sat 97%. HEENT: Head is normocephalic. Sclerae and conjunctivae are normal. Oropharynx has no recurrence of the cancer. The lateral aspect of the tongue is still adherent to the floor of the mouth. I do not see any evidence of bleeding. NECK: No adenopathy and no recurrence of head and neck cancer. HEART: Regular rhythm. LUNGS: Clear. ABDOMEN: Without hepatosplenomegaly. EXTREMITIES: Without edema. MUSCULOSKELETAL: mild muscle wasting. NEUROLOGIC: No focal weakness. ASSESSMENT The patient is a 62-year male who had definitive surgery and radiation therapy for a T1 N0 M0 squamous cell carcinoma of the tongue, HPV negative. He has a high cure rate which I would anticipate would be in the order of 90% or possibly greater at this point. He had following recent surgery performed three weeks ago and has had persistent pain following the surgery. The morphine that he is taking does not last four hours. He does not have a history of seeking narcotics and I believe that the pain is real and hopefully will resolve over the next 3 or 4 weeks. RECOMMENDATIONS I would recommend a long-acting narcotic, as he is taking the morphine every four hours and the pain relief does not last four hours. I will order Duragesic 25 mcg every 72 hours, continue oral morphine 10 mg p.o. q.4 h p.r.n. pain. Continue appropriate laxatives but simplify the regimen to make the timing easier. I would continue his Ativan given the high degree of anxiety. He can be discharged within the next several days if he is stable. I can follow him as an outpatient writing for narcotics which should only be necessary for several weeks. I will check CBC and platelet count. He has had a recent upper endoscopy and there was no evidence of a bleeding site and it appears that the bleeding was from the oral cavity. I will order an iron TIBC and ferritin to make sure that he is not iron deficient. He did have a B12 level in February of 2017 which was 834. The situation was reviewed with him in detail. I then called his sister, Lesa Ramires and spoke to her as well. I will be willing to provide the narcotics to him which hopefully will be for a brief time. His care has been fragmented and I will attempt to help him organize future care. MD ALLISON Dee/ /9:52 PM /11:14 PM MTDD
[2017-09-26 01:07] VITALS: BP 98/50; PULSE 80; RESP 18; TEMP 98; O2SAT 97
[2017-09-26] MEDS: PROMETHAZINE HCL SYRUP 6.25 MG/5 ML CUP PO PRN ×3 (01:47→11:10)
[2017-09-26] MEDS: MORPHINE SULFATE ORAL SOLN 10 MG/0.5 ML SYRINGE PO PRN ×5 (01:48→20:48)
[2017-09-26] MEDS: TEMAZEPAM 15 MG CAP PO PRN (01:50)
[2017-09-26] MEDS: SODIUM CHLOR 0.9% 1000 ML INJ 1,000 ML IV SCH ×3 (02:28→23:18)
[2017-09-26] MEDS: LIDOCAINE VISCOUS 2% SOLN 15 ML UDC SWISH-SPIT PRN ×2 (06:19→11:11)
[2017-09-26 07:13] VITALS: BP 120/69; PULSE 107; RESP 18; TEMP 98.1; O2SAT 98
[2017-09-26 07:43] LABS: TRANSFERRIN IRON PROFILE 223 MG/DL (200-360)
[2017-09-26 07:46] LABS: FERRITIN 18 NG/ML (26-388)
[2017-09-26 08:00] VITALS: BP 93/54; PULSE 107; RESP 18; TEMP 98.5; O2SAT 95
[2017-09-26] MEDS: LACTULOSE SYRUP 20 GM/30 ML CUP PO PRN (08:38)
[2017-09-26] MEDS: POLYETHYLENE GLYCOL 17 GM PKG PO SCH (08:38)
[2017-09-26] MEDS: SODIUM CHLORIDE 0.9% FLUSH 10 ML FLUSH IV FLUSH SCH ×2 (08:39→20:47)
[2017-09-26] MEDS: LORazepam 1 MG TAB PO PRN ×2 (08:40→16:12)
[2017-09-26] MEDS: PANTOPRAZOLE SOD 40 MG DELAYED RELEASE TAB PO SCH ×2 (08:42→20:47)
[2017-09-26] MEDS: LACTULOSE SYRUP 20 GM/30 ML CUP PO SCH ×3 (08:55→18:12)
[2017-09-26] MEDS: PANTOPRAZOLE SODIUM 40 MG VIAL IV PUSH SCH (08:56)
[2017-09-26 10:08] LABS: AUTOMATED NEUTROPHIL # 5.9 TH/MM3 (1.8-7.7); BASOPHIL % 0.2 % (0.0-2.0); EOSINOPHIL % 0.3 % (0.0-4.0); HEMATOCRIT 25.4 % (39.0-51.0); HEMO FLAGS DIFF FINAL; LYMPHOCYTE # 0.6 TH/MM3 (1.0-4.8); MEAN CELL VOLUME 88.7 FL (80.0-100.0); MEAN CORPUSCULAR HEMOGLOBIN 30.9 PG (27.0-34.0); MEAN CORPUSCULAR HGB CONC 34.8 % (32.0-36.0); MONO % 7.3 % (0.0-8.0); NEUT % 83.2 % (16.0-70.0); PLATELET COUNT 298 TH/MM3 (150-450); RED BLOOD COUNT 2.86 MIL/MM3 (4.50-5.90); RED CELL DISTRIBUTION WIDTH 14.2 % (11.6-17.2); WHITE BLOOD COUNT 7.1 TH/MM3 (4.0-11.0)
--- NOTE | 2017-09-26 10:33 | HHI.PR ---
Subjective Remarks Follow-up for constipation, anemia, and uncontrolled pain Patient stated that pain is better controlled today. He stated that spitting the viscous lidocaine seemed like it worsen his pain when he had a up. But he felt like it worked better than the Magic mouthwash. Patient stated that he feels he would do better with the viscous lidocaine if he swallows it. Patient had a bowel movement yesterday. He has not had one today. His sister and is at the bedside in the interview. Patient stated that he is ambulating. Discussed with nurse in person and Dr. Malloy over the phone. Objective Vitals Vital Signs Date Time Temp Pulse Resp B/P (MAP) Pulse Ox O2 Delivery O2 Flow Rate FiO2 09/26/17 08:00 98.5 107 18 93/54 (67) 95 09/26/17 07:13 98.1 107 18 120/69 (86) 98 09/26/17 01:07 98.0 80 18 98/50 (66) 97 09/25/17 21:00 97.9 92 18 124/63 (83) 99 09/25/17 20:00 97.7 92 18 124/63 (83) 99 09/25/17 17:45 97.7 69 20 90/50 (63) 97 09/25/17 12:22 97.6 79 20 105/56 (72) 95 I/O 09/25/17 09/25/17 09/25/17 09/26/17 09/26/17 09/26/17 07:00 15:00 23:00 07:00 15:00 23:00 Intake Total 360 ml Balance 360 ml Intake Oral 360 ml # Voids 3 # Bowel Movements 1 Result Diagram: 09/26/17 0911 09/25/17 0647 Objective Remarks GENERAL: thin male in NAD CARDIOVASCULAR: Regular rate and rhythm without murmurs, gallops, or rubs. RESPIRATORY: Breath sounds equal bilaterally. No accessory muscle use. GASTROINTESTINAL: Abdomen soft, no TTP, nondistended. MUSCULOSKELETAL: No cyanosis, or edema. BACK: Nontender without obvious deformity. No CVA tenderness. Medications and IVs Current Medications Morphine Sulfate (Morphine Inj) 4 mg ONCE ONCE IV PUSH Last administered on t 18:55; Start 09/20/17 at 18:30; Stop 09/20/17 at 18:31; Status DC Sodium Chloride 1,000 ml @ 1,000 mls/hr Q1H IV Last administered on 09/20/17 18:54; Start 09/20/17 at 18:24; Stop 09/20/17 at 19:23; Status DC Sodium Chloride (NS Flush) 2 ml UNSCH PRN IV FLUSH FLUSH AFTER USING IV ACCESS ; Start 09/20/17 at 18:30; Stop 09/20/17 at 22:53; Status DC Mineral Oil (Fleet Mineral Oil Enema) 118 ml ONCE ONCE RECTAL ; Start 09/20/17 at 18:30; Stop 09/20/17 at 18:51; Status DC Lorazepam (Ativan Inj) 1 mg ONCE ONCE IV PUSH Last administered on 09/20/17 20:12; Start 09/20/17 at 19:45; Stop 09/20/17 at 19:46; Status DC Pantoprazole Sodium (Protonix Inj) 40 mg ONCE ONCE IV PUSH Last administered on 09/20/17 21:18; Start 09/20/17 at 21:00; Stop 09/20/17 at 21:01; Status DC Sodium Chloride 1,000 ml @ 100 mls/hr Q10H IV Last administered on 09/26/17 02:28; Start 09/20/17 at 21:36 Sodium Chloride (NS Flush) 2 ml UNSCH PRN IV FLUSH FLUSH AFTER USING IV ACCESS Last administered on 09/24/17 09:58; Start 09/20/17 at 21:45 Sodium Chloride (NS Flush) 2 ml BID IV FLUSH Last administered on 09/25/17 21: 00; Start 09/21/17 at 09:00 Pantoprazole Sodium (Protonix Inj) 40 mg DAILY IV PUSH Last administered on 08:56; Start 09/21/17 at 09:00 Enoxaparin Sodium (Lovenox Inj) 40 mg Q24H SQ ; Start 09/20/17 at 22:00; Stop 09/21/17 at 16:59; Status DC Bisacodyl (Dulcolax Supp) 10 mg ONCE ONCE RECTAL Last administered on 22:44; Start 09/20/17 at 21:45; Stop 09/20/17 at 21:50; Status DC Mineral Oil (Fleet Mineral Oil Enema) 59 ml DAILY PRN RECTAL constipation Last administered on 09/21/17 13:42; Start 09/20/17 at 21:45 Lorazepam (Ativan) 1 mg TID PRN PO ANXIETY Last administered on 09/26/17 08:40 ; Start 09/20/17 at 21:45 Senna/Docusate Sodium (Siomara-Colace) 1 tab BID PO Last administered on 21:39; Start 09/21/17 at 09:00; Stop 09/26/17 at 07:27; Status DC Tamsulosin HCl (Flomax) 0.4 mg HS PO Last administered on 09/25/17 21:39; Start 09/21/17 at 21:00 Temazepam (Restoril) 30 mg HS PRN PO INSOMNIA Last administered on 09/26/17 01 :50; Start 09/20/17 at 21:45 Acetaminophen (Tylenol) 650 mg Q6HR PRN PO Fever > 100.4 Last administered on 09/20/17 23:59; Start 09/20/17 at 23:00 Promethazine HCl (Phenergan Inj) 12.5 mg Q4H PRN IM pre-med opiates or n/v Last administered on 09/24/17 14:25; Start 09/21/17 at 01:45; Stop 09/24/17 at 18:17; Status DC Morphine Sulfate (Morphine Inj) 4 mg Q3H PRN IV PUSH pain > 4 Last administered on 09/24/17 09:58; Start 09/21/17 at 01:45; Stop 09/24/17 at 11:22 ; Status DC Influenza Virus Vaccine (Flu (Quadrivalent) Vaccine Inj) 0.5 ml ONCE ONCE IM Last administered on 09/22/17 09:11; Start 09/22/17 at 10:00; Stop 09/22/17 at 10:01; Status DC Bacitracin (Baciguent Oint) 1 applic Q4HR PRN TOPICAL Nasal Irritation; Start 09/21/17 at 09:45 Diatrizoate Meglum/ Diatrizoate Sod ( Gastroview Liq) 18 ml ONCE ONCE PO ; Start 09/21/17 at 10:15; Stop 09/21/17 at 10:16; Status DC Magnesium Hydroxide (Milk Of Magnesia Liq) 30 ml Q12H PRN PO Mild constipation ; Start 09/21/17 at 11:45 Sennosides (Senokot) 17.2 mg Q12H PRN PO Moderate constipation Last administered on 09/25/17 08:05; Start 09/21/17 at 11:45 Bisacodyl (Dulcolax Supp) 10 mg DAILY PRN RECTAL SEVERE CONSITIPATION Last administered on 09/21/17 16:01; Start 09/21/17 at 11:45 Lactulose (Lactulose Liq) 30 ml DAILY PRN PO SEVERE CONSITIPATION Last administered on 09/26/17 08:38; Start 09/21/17 at 11:45 Sodium Chloride 250 ml @ 15 mls/hr ONCE ONCE IV Last administered on 14:00; Start 09/21/17 at 14:00; Stop 09/22/17 at 06:39; Status DC Magnesium Citrate (Citroma Liq) 300 ml ONCE ONCE PO Last administered on 17:00; Start 09/21/17 at 17:00; Stop 09/21/17 at 18:04; Status DC Ketorolac Tromethamine (Toradol Inj) 15 mg Q6H PRN IV PUSH breakthrough pain Last administered on 09/22/17 07:44; Start 09/21/17 at 17:15; Stop 09/22/17 at 10:41; Status DC Mineral Oil (Fleet Mineral Oil Enema) 118 ml ONCE ONCE RECTAL Last administered on 09/21/17 17:15; Start 09/21/17 at 17:15; Stop 09/21/17 at 18:04 ; Status DC Morphine Sulfate (Roxanol Liq) 5 mg Q4H PRN PO pain 4-10 Last administered on 09/25/17 08:06; Start 09/22/17 at 10:45; Stop 09/25/17 at 09:47; Status DC Pantoprazole Sodium (Protonix) 40 mg BID PO Last administered on 09/25/17 21: 39; Start 09/23/17 at 10:15 Polyethylene Glycol (Miralax) 17 gm DAILY PO Last administered on 09/26/17 08: 38; Start 09/24/17 at 09:00 Polyethylene Glycol (Miralax) 17 gm ONCE ONCE PO Last administered on 11:07; Start 09/23/17 at 10:15; Stop 09/23/17 at 11:01; Status DC Bisacodyl (Dulcolax Supp) 10 mg ONCE ONCE RECTAL Last administered on 11:07; Start 09/23/17 at 10:15; Stop 09/23/17 at 11:01; Status DC Promethazine HCl (Phenergan Liq) 12.5 mg Q4HR PRN PO nausea/vomiting Last administered on 09/26/17 06:11; Start 09/24/17 at 16:00 Multi-Ingredient Mouthwash/Gargle (Magic Mouthwash Adult Liq) 5 ml QID SWISH- SWAL Last administered on 09/24/17 22:20; Start 09/24/17 at 18:00; Stop at 09:47; Status DC Lactulose (Lactulose Liq) 30 ml BID PO Last administered on 09/25/17 21:39; Start 09/25/17 at 21:00; Stop 09/26/17 at 07:28; Status DC Morphine Sulfate (Roxanol Liq) 10 mg Q4H PRN PO pain 4-10 Last administered on 09/26/17 06:11; Start 09/25/17 at 09:45 Lidocaine HCl (Xylocaine 2% Viscous) 15 ml Q4H PRN SWISH-SPIT pain 1-3 Last administered on 09/26/17 06:19; Start 09/25/17 at 09:45 Fentanyl (Duragesic 25 Mcg Patch.72 Hr) 1 patch ONCE STAT T-DERMAL Last administered on 09/25/17 22:15; Start 09/25/17 at 21:43; Stop 09/25/17 at 21:48 ; Status DC Miscellaneous Information 1 ONCE ONCE T-DERMAL ; Start 09/28/17 at 21:43; Stop 09/28/17 at 21:44 Lactulose (Lactulose Liq) 30 ml TID PO ; Start 09/26/17 at 09:00 A/P Problem List: (1) Fecal impaction in rectum ICD Code: K56.41 - Fecal impaction Status: Acute (2) Anemia ICD Code: D64.9 - Anemia, unspecified Status: Acute Assessment and Plan 62-year-old male with a past medical history significant for tongue cancer status post resection and radiation therapy, with recent frenulectomy 09/03/17 complicated by profuse bleeding requiring intubation presenting with anemia and fecal impaction. Iron deficiency anemia secondary to blood loss. -Most likely secondary to bleeding after frenulectomy, -Status post transfused with 1 unit packed red blood cells went from 7.2 to 7.9 to 9.5-8.8. -No active bleed bleeding and EGDs negative. -Most likely secondary to frenulectomy. Per Dr. Mishra ENT physician he stated that patient is not out of the window for active bleeding. Patient was given extensive directions by Dr. Mishra on how to prevent this from happening. -Dr. Malloy consulted and will do IV iron infusion. Severe constipation, fecal impaction -abdominal x-ray negative for obstruction, status post fleets enema, had a small bowel movement, repeat fleets enema as needed. - Patient refuses to have a CT scan of the abdomen because he does not want to be exposed to radiation. -Bowel regimen was changed to lactulose 3 times a day. Her Colace was discontinued. -Continue to monitor. Elevated troponins -Asymptomatic. -Most likely from demand ischemia. Troponin is trending down. -Repeat echo showed EF of 50-55%. -Associate Professor Of History consulted and stated that most likely secondary to demand ischemia. -Associate Professor Of History recommend Lexiscan versus LHC. At the moment patient does not want further workup. History of tongue cancer - Status post frenulectomy/flap release 2 weeks ago with postoperative hemorrhage requiring transfusion and intubation for airway protection, monitor. -Pain is not controlled. -Patient was put on fentanyl patch by oncologist. Continue with morphine elixir. -Continue with viscous lidocaine and may swallow. -Dr. Mishra recommended a soft diet. Headache, resolved. -No neurological signs to seems to be more due to tension headache. Recommend a CT scan the brain since this is day 2. Patient declined any CT scans despite recommendations. Mild hypotension - Improving. Most likely secondary to poor oral intake. Anxiety -Continue home Ativan GERD -On Protonix. on Prevacid. DVT prophylaxis: SCDs. Discharge Planning Pain will need to be better controlled before discharge. Problem Qualifiers (1) Anemia: Qualified Codes: D62 - Acute posthemorrhagic anemia Brandi Swann MD Sep 26, 2017 10:33
--- NOTE | 2017-09-26 10:48 | PD.ONC.PN ---
Subjective Subjective Remarks Afebrile overnight. Patient resting in bed in nad. Reports he had a bowel movement yesterday. Frustrated with taking so many pills Has not yet seen any improvement from the Duragesic patch that was started yesterday. Anxious that his ativan will be taken away. Objective Data Date Time Temp Pulse Resp B/P (MAP) Pulse Ox O2 Delivery O2 Flow Rate FiO2 09/26/17 08:00 98.5 107 18 93/54 (67) 95 09/26/17 07:13 98.1 107 18 120/69 (86) 98 09/26/17 01:07 98.0 80 18 98/50 (66) 97 09/25/17 21:00 97.9 92 18 124/63 (83) 99 09/25/17 20:00 97.7 92 18 124/63 (83) 99 09/25/17 17:45 97.7 69 20 90/50 (63) 97 09/25/17 12:22 97.6 79 20 105/56 (72) 95 Result Diagram: 09/26/17 0911 09/25/17 0647 Laboratory Results Laboratory Tests Test 09/26/17 06:55 09/26/17 09:11 Iron Level 24 MCG/DL Total Iron Binding Capacity 312 MCG/DL Percent Iron Saturation 7.7 % Ferritin 18 NG/ML White Blood Count 7.1 TH/MM3 Red Blood Count 2.86 MIL/MM3 Hemoglobin 8.8 GM/DL Hematocrit 25.4 % Mean Corpuscular Volume 88.7 FL Mean Corpuscular Hemoglobin 30.9 PG Mean Corpuscular Hemoglobin Concent 34.8 % Red Cell Distribution Width 14.2 % Platelet Count 298 TH/MM3 Mean Platelet Volume 6.4 FL Neutrophils (%) (Auto) 83.2 % Lymphocytes (%) (Auto) 9.0 % Monocytes (%) (Auto) 7.3 % Eosinophils (%) (Auto) 0.3 % Basophils (%) (Auto) 0.2 % Neutrophils # (Auto) 5.9 TH/MM3 Lymphocytes # (Auto) 0.6 TH/MM3 Monocytes # (Auto) 0.5 TH/MM3 Eosinophils # (Auto) 0.0 TH/MM3 Basophils # (Auto) 0.0 TH/MM3 CBC Comment DIFF FINAL Differential Comment Administered Medications Medications (Trade) Dose Ordered Sig/Daniel Route PRN Reason Start Time Stop Time Status Last Admin Dose Admin Sodium Chloride 1,000 ml @ 100 mls/hr Q10H IV 09/20/17 21:36 09/26/17 02:28 Sodium Chloride (NS Flush) 2 ml UNSCH PRN IV FLUSH FLUSH AFTER USING IV ACCESS 09/20/17 21:45 09/24/17 09:58 Sodium Chloride (NS Flush) 2 ml BID IV FLUSH 09/21/17 09:00 09/25/17 21:00 Pantoprazole Sodium (Protonix Inj) 40 mg DAILY IV PUSH 09/21/17 09:00 09/26/17 08:56 Mineral Oil (Fleet Mineral Oil Enema) 59 ml DAILY PRN RECTAL constipation 09/20/17 21:45 09/21/17 13:42 Lorazepam (Ativan) 1 mg TID PRN PO ANXIETY 09/20/17 21:45 09/26/17 08:40 Tamsulosin HCl (Flomax) 0.4 mg HS PO 09/21/17 21:00 09/25/17 21:39 Temazepam (Restoril) 30 mg HS PRN PO INSOMNIA 09/20/17 21:45 09/26/17 01:50 Acetaminophen (Tylenol) 650 mg Q6HR PRN PO Fever > 100.4 09/20/17 23:00 09/20/17 23:59 Sennosides (Senokot) 17.2 mg Q12H PRN PO Moderate constipation 09/21/17 11:45 09/25/17 08:05 Bisacodyl (Dulcolax Supp) 10 mg DAILY PRN RECTAL SEVERE CONSITIPATION 09/21/17 11:45 09/21/17 16:01 Lactulose (Lactulose Liq) 30 ml DAILY PRN PO SEVERE CONSITIPATION 09/21/17 11:45 09/26/17 08:38 Pantoprazole Sodium (Protonix) 40 mg BID PO 09/23/17 10:15 09/25/17 21:39 Polyethylene Glycol (Miralax) 17 gm DAILY PO 09/24/17 09:00 09/26/17 08:38 Promethazine HCl (Phenergan Liq) 12.5 mg Q4HR PRN PO nausea/vomiting 09/24/17 16:00 09/26/17 06:11 Morphine Sulfate (Roxanol Liq) 10 mg Q4H PRN PO pain 4-10 09/25/17 09:45 09/26/17 06:11 Lidocaine HCl (Xylocaine 2% Viscous) 15 ml Q4H PRN SWISH-SPIT pain 1-3 09/25/17 09:45 09/26/17 06:19 Objective Remarks GENERAL: Middle aged male sitting up in bed in nad. SKIN: Warm and dry. HEAD: Normocephalic. EYES: No injection or drainage. NECK: Supple, trachea midline. CARDIOVASCULAR: Regular rate and rhythm RESPIRATORY: Breath sounds equal bilaterally. No accessory muscle use. GASTROINTESTINAL: Abdomen soft, non-tender, nondistended. EXTREMITIES: No cyanosis NEUROLOGICAL: awake and alert, moving extremities. dysarthric speech. Assessment/Plan Assessment 62y/o male with history of squamous cell carcinoma of the tongue, bleeding and anemia. Plan 1. pain management. Will continue Duragesic patch 25mcg with PO roxanol for breakthrough pain. After discharge patient will follow up with Dr. Malloy in clinic to wean off the narcotics over a period of about two weeks. 2. bowel regimen: patient very anxious about being on multiple medications. Therefore, we will simplify the bowel regimen as follows: stop farnaz-colace. increase Lactulose to 30ml PO TID and continue Miralax once daily. 3. continue ativan TID for anxiety 4. face sheet faxed to new patient referrals for follow up 1 week post discharge with Dr. Malloy. Would recommend keeping patient one more day to see how he tolerates pain and constipation regimen and then d/c tomorrow. 5. DARIANA: will replace iron stores while inpatient with 30ml iron [id number] in 1000cc/NS over 12 hours. orders faxed to pharmacy and placed in chart. Attending Statement The exam, history, and the medical decision-making described in the above note were completed with the assistance of the mid-level provider. I reviewed and agree with the findings presented. I attest that I had a [id number] encounter with the patient on the same day, and personally performed and documented my assessment and findings in the medical record. no change in exam and remains anxious and uncomfortable. I am hopefull the pain will improve over the next few weeks as it appears to be secondary to recent surgery, bleeding and additional manipulation of the oral cavity to stop the bleeding. Will continue Duragesic at same dose as it may take a day to work , morphine for breakthrough pain, and charanjit for anxiety. Anemia in part due to low iron. He has problem taking orally and already has issues with constipation. Will give IV iron and be done with the problem of iron deficiency in 1 day. Hopefully home in next few days. . Nicole Tai Sep 26, 2017 10:48 Alfredo Malloy MD Sep 27, 2017 06:18
[2017-09-26 12:00] VITALS: BP 95/57; PULSE 87; RESP 18; TEMP 99.2; O2SAT 96
[2017-09-26] MEDS ORDERED: IRON DEXTRAN INJ 25 MG in SODIUM CHLORIDE 0.9% INJ 50 ML IV ONE (15:00)
[2017-09-26] MEDS ORDERED: PILL SPLITTER OTHER PRN (15:15)
[2017-09-26] MEDS: PROMETHAZINE HCL 25 MG TAB PO PRN ×2 (15:34→20:47)
[2017-09-26] MEDS ORDERED: SODIUM CHLOR 0.9% IV ONE ×2 (16:00→17:00)
[2017-09-26] MEDS ORDERED: IRON DEXTRAN IV ONE ×2 (16:00→17:00)
[2017-09-26 16:30] VITALS: BP 106/97; PULSE 85; RESP 18; TEMP 99.3; O2SAT 95
[2017-09-26] MEDS ORDERED: IRON DEXTRAN INJ 100 MG in SODIUM CHLORIDE 0.9% INJ 100 ML IV ONE (16:30)
[2017-09-26] MEDS ORDERED: FAMOTIDINE 20 MG/2 ML VIAL IV ONE (16:30)
[2017-09-26] MEDS ORDERED: diphenhydrAMINE HCL 50 MG/ML VIAL IV ONE (16:30)
[2017-09-26] MEDS ORDERED: DEXAMETHASONE SOD PHOS 20 MG/5 ML VIAL IV ONE (16:30)
[2017-09-26 20:00] VITALS: BP 104/53; PULSE 86; RESP 18; TEMP 98.4; O2SAT 96
[2017-09-26] MEDS: TAMSULOSIN HCL 0.4 MG CAP PO SCH (20:48)
[2017-09-27] VITALS: BP 101/53; PULSE 74; RESP 18; TEMP 97.7; O2SAT 95
[2017-09-27] MEDS: LORazepam 1 MG TAB PO PRN ×4 (03:16→23:37)
[2017-09-27] MEDS: PROMETHAZINE HCL 25 MG TAB PO PRN ×4 (03:16→19:40)
[2017-09-27] MEDS: MORPHINE SULFATE ORAL SOLN 10 MG/0.5 ML SYRINGE PO PRN ×4 (03:17→19:41)
[2017-09-27 04:00] VITALS: BP 100/56; PULSE 87; RESP 18; TEMP 98.2; O2SAT 95
[2017-09-27] MEDS: POLYETHYLENE GLYCOL 17 GM PKG PO SCH (08:13)
[2017-09-27] MEDS: LIDOCAINE VISCOUS 2% SOLN 15 ML UDC SWISH-SWAL PRN (08:13)
[2017-09-27] MEDS: PANTOPRAZOLE SODIUM 40 MG VIAL IV PUSH SCH (08:14)
[2017-09-27] MEDS: LACTULOSE SYRUP 20 GM/30 ML CUP PO SCH ×3 (08:14→18:31)
[2017-09-27] MEDS: SODIUM CHLOR 0.9% 1000 ML INJ 1,000 ML IV SCH ×2 (08:15→11:01)
[2017-09-27] MEDS: SODIUM CHLORIDE 0.9% FLUSH 10 ML FLUSH IV FLUSH SCH ×2 (08:15→21:02)
[2017-09-27 08:24] VITALS: BP 128/59; PULSE 61; RESP 18; TEMP 98.2; O2SAT 96
[2017-09-27] MEDS: PANTOPRAZOLE SOD 40 MG DELAYED RELEASE TAB PO SCH ×2 (08:54→21:02)
--- NOTE | 2017-09-27 09:16 | PD.ONC.PN ---
Subjective Subjective Remarks Afebrile overnight. Patient tolerated iron infusion yesterday. States his pain is controlled today with duragesic patch and PO Morphine. States in the last 24 hours he has been needing the PO morphine later and later. He is having bowel movements and likes the bowel regimen that he is on. Objective Data Date Time Temp Pulse Resp B/P (MAP) Pulse Ox O2 Delivery O2 Flow Rate FiO2 09/27/17 08:24 98.2 61 18 128/59 (82) 96 09/27/17 04:00 98.2 87 18 100/56 (71) 95 09/27/17 00:00 97.7 74 18 101/53 (69) 95 09/26/17 20:00 98.4 86 18 104/53 (70) 96 09/26/17 16:30 99.3 85 18 106/97 (100) 95 09/26/17 12:00 99.2 87 18 95/57 (70) 96 09/27/17 09/27/17 09/27/17 07:00 15:00 23:00 Intake Total 766 ml Balance 766 ml Result Diagram: 09/26/17 0911 09/25/17 0647 Administered Medications Medications (Trade) Dose Ordered Sig/Daniel Route PRN Reason Start Time Stop Time Status Last Admin Dose Admin Sodium Chloride 1,000 ml @ 100 mls/hr Q10H IV 09/20/17 21:36 09/27/17 08:15 Sodium Chloride (NS Flush) 2 ml UNSCH PRN IV FLUSH FLUSH AFTER USING IV ACCESS 09/20/17 21:45 09/24/17 09:58 Sodium Chloride (NS Flush) 2 ml BID IV FLUSH 09/21/17 09:00 09/26/17 20:47 Pantoprazole Sodium (Protonix Inj) 40 mg DAILY IV PUSH 09/21/17 09:00 09/27/17 08:14 Mineral Oil (Fleet Mineral Oil Enema) 59 ml DAILY PRN RECTAL constipation 09/20/17 21:45 09/21/17 13:42 Lorazepam (Ativan) 1 mg TID PRN PO ANXIETY 09/20/17 21:45 09/27/17 03:16 Tamsulosin HCl (Flomax) 0.4 mg HS PO 09/21/17 21:00 09/26/17 20:48 Temazepam (Restoril) 30 mg HS PRN PO INSOMNIA 09/20/17 21:45 09/26/17 01:50 Acetaminophen (Tylenol) 650 mg Q6HR PRN PO Fever > 100.4 09/20/17 23:00 09/20/17 23:59 Sennosides (Senokot) 17.2 mg Q12H PRN PO Moderate constipation 09/21/17 11:45 09/25/17 08:05 Bisacodyl (Dulcolax Supp) 10 mg DAILY PRN RECTAL SEVERE CONSITIPATION 09/21/17 11:45 09/21/17 16:01 Lactulose (Lactulose Liq) 30 ml DAILY PRN PO SEVERE CONSITIPATION 09/21/17 11:45 09/26/17 08:38 Pantoprazole Sodium (Protonix) 40 mg BID PO 09/23/17 10:15 09/26/17 20:47 Polyethylene Glycol (Miralax) 17 gm DAILY PO 09/24/17 09:00 09/27/17 08:13 Morphine Sulfate (Roxanol Liq) 10 mg Q4H PRN PO pain 4-10 09/25/17 09:45 09/27/17 08:13 Lactulose (Lactulose Liq) 30 ml TID PO 09/26/17 09:00 09/27/17 08:14 Lidocaine HCl (Xylocaine 2% Viscous) 15 ml Q4H PRN SWISH-SWAL mouth pain 09/26/17 10:30 09/27/17 08:13 Promethazine HCl (Phenergan) 12.5 mg Q4H PRN PO nausea/vomiting 09/26/17 15:00 09/27/17 08:14 Objective Remarks GENERAL: Pleasant, well groomed male, sitting up in bed in [facility]. SKIN: Warm and dry. HEAD: Normocephalic. EYES: No injection or drainage. MOUTH: no bleeding. tongue with multiple chronic surgical changes. NECK: Supple, trachea midline. CARDIOVASCULAR: Regular rate and rhythm RESPIRATORY: clear to auscultation all lung van. GASTROINTESTINAL: Abdomen soft, non-tender, nondistended. EXTREMITIES: No cyanosis NEUROLOGICAL: awake and alert, moving extremities. dysarthric speech. Assessment/Plan Assessment 62y/o male with history of squamous cell carcinoma of the tongue, bleeding and anemia. Plan 1. pain management: tolerating current regimen. would continue Fentanyl patch + PO Morphine for breakthrough pain. discussed with patient we will continue this regimen at home and will plan for outpatient follow up to see Dr. Malloy in clinic. 2. bowel regimen: patient having bowel movements. would continue current regimen of Lactulose to 30ml PO TID + Miralax once daily. 3. would recommend keeping inpatient for one more day and if pain controlled would discharge tomorrow with home healthcare nursing. Attending Statement The exam, history, and the medical decision-making described in the above note were completed with the assistance of the mid-level provider. I reviewed and agree with the findings presented. I attest that I had a [id number] encounter with the patient on the same day, and personally performed and documented my assessment and findings in the medical record. pain is less and spirits are better. He is tolerating the IV iron uneventfully. I will see in am and anticipate discharge tomorrow with outpatient followup. tongue looks good and no further bleeding. Nicole Tai Sep 27, 2017 09:16 Alfredo Malloy MD Sep 27, 2017 19:44
--- NOTE | 2017-09-27 09:47 | HHI.PR ---
Subjective Remarks Follow-up for tongue cancer, anemia, uncontrolled pain Patient stated pain is better controlled he is requiring less morphine. Patient had a bowel movement every day for the past 2 days so far. He stated he is ambulate. He has no complaints today. When I told patient that oncologist recommend home health. Patient stated that he does not need home health. Patient stated that he is able to do everything himself. Objective Vitals Vital Signs Date Time Temp Pulse Resp B/P (MAP) Pulse Ox O2 Delivery O2 Flow Rate FiO2 09/27/17 08:24 98.2 61 18 128/59 (82) 96 09/27/17 04:00 98.2 87 18 100/56 (71) 95 09/27/17 00:00 97.7 74 18 101/53 (69) 95 09/26/17 20:00 98.4 86 18 104/53 (70) 96 09/26/17 16:30 99.3 85 18 106/97 (100) 95 09/26/17 12:00 99.2 87 18 95/57 (70) 96 I/O 09/26/17 09/26/17 09/26/17 09/27/17 09/27/17 09/27/17 07:00 15:00 23:00 07:00 15:00 23:00 Intake Total 466 ml 766 ml Balance 466 ml 766 ml IV Total 466 ml 766 ml # Voids 5 3 # Bowel Movements 0 2 1 Result Diagram: 09/26/17 0911 09/25/17 0647 Objective Remarks GENERAL: thin male in NAD CARDIOVASCULAR: Regular rate and rhythm without murmurs, gallops, or rubs. RESPIRATORY: Breath sounds equal bilaterally. No accessory muscle use. GASTROINTESTINAL: Abdomen soft, no TTP, nondistended. MUSCULOSKELETAL: No cyanosis, or edema. BACK: Nontender without obvious deformity. No CVA tenderness. Medications and IVs Current Medications Morphine Sulfate (Morphine Inj) 4 mg ONCE ONCE IV PUSH Last administered on 18:55; Start 09/20/17 at 18:30; Stop 09/20/17 at 18:31; Status DC Sodium Chloride 1,000 ml @ 1,000 mls/hr Q1H IV Last administered on 09/20/17 18:54; Start 09/20/17 at 18:24; Stop 09/20/17 at 19:23; Status DC Sodium Chloride (NS Flush) 2 ml UNSCH PRN IV FLUSH FLUSH AFTER USING IV ACCESS ; Start 09/20/17 at 18:30; Stop 09/20/17 at 22:53; Status DC Mineral Oil (Fleet Mineral Oil Enema) 118 ml ONCE ONCE RECTAL ; Start 09/20/17 at 18:30; Stop 09/20/17 at 18:51; Status DC Lorazepam (Ativan Inj) 1 mg ONCE ONCE IV PUSH Last administered on 09/20/17 20:12; Start 09/20/17 at 19:45; Stop 09/20/17 at 19:46; Status DC Pantoprazole Sodium (Protonix Inj) 40 mg ONCE ONCE IV PUSH Last administered on 09/20/17 21:18; Start 09/20/17 at 21:00; Stop 09/20/17 at 21:01; Status DC Sodium Chloride 1,000 ml @ 100 mls/hr Q10H IV Last administered on 09/27/17 08:15; Start 09/20/17 at 21:36 Sodium Chloride (NS Flush) 2 ml UNSCH PRN IV FLUSH FLUSH AFTER USING IV ACCESS Last administered on 09/24/17 09:58; Start 09/20/17 at 21:45 Sodium Chloride (NS Flush) 2 ml BID IV FLUSH Last administered on 09/26/17 20: 47; Start 09/21/17 at 09:00 Pantoprazole Sodium (Protonix Inj) 40 mg DAILY IV PUSH Last administered on 08:14; Start 09/21/17 at 09:00 Enoxaparin Sodium (Lovenox Inj) 40 mg Q24H SQ ; Start 09/20/17 at 22:00; Stop 09/21/17 at 16:59; Status DC Bisacodyl (Dulcolax Supp) 10 mg ONCE ONCE RECTAL Last administered on 22:44; Start 09/20/17 at 21:45; Stop 09/20/17 at 21:50; Status DC Mineral Oil (Fleet Mineral Oil Enema) 59 ml DAILY PRN RECTAL constipation Last administered on 09/21/17 13:42; Start 09/20/17 at 21:45 Lorazepam (Ativan) 1 mg TID PRN PO ANXIETY Last administered on 09/27/17 03:16 ; Start 09/20/17 at 21:45 Senna/Docusate Sodium (Siomara-Colace) 1 tab BID PO Last administered on 21:39; Start 09/21/17 at 09:00; Stop 09/26/17 at 07:27; Status DC Tamsulosin HCl (Flomax) 0.4 mg HS PO Last administered on 09/26/17 20:48; Start 09/21/17 at 21:00 Temazepam (Restoril) 30 mg HS PRN PO INSOMNIA Last administered on 09/26/17 01 :50; Start 09/20/17 at 21:45 Acetaminophen (Tylenol) 650 mg Q6HR PRN PO Fever > 100.4 Last administered on 09/20/17 23:59; Start 09/20/17 at 23:00 Promethazine HCl (Phenergan Inj) 12.5 mg Q4H PRN IM pre-med opiates or n/v Last administered on 09/24/17 14:25; Start 09/21/17 at 01:45; Stop 09/24/17 at 18:17; Status DC Morphine Sulfate (Morphine Inj) 4 mg Q3H PRN IV PUSH pain > 4 Last administered on 09/24/17 09:58; Start 09/21/17 at 01:45; Stop 09/24/17 at 11:22 ; Status DC Influenza Virus Vaccine (Flu (Quadrivalent) Vaccine Inj) 0.5 ml ONCE ONCE IM Last administered on 09/22/17 09:11; Start 09/22/17 at 10:00; Stop 09/22/17 at 10:01; Status DC Bacitracin (Baciguent Oint) 1 applic Q4HR PRN TOPICAL Nasal Irritation; Start 09/21/17 at 09:45 Diatrizoate Meglum/ Diatrizoate Sod ( Gastroview Liq) 18 ml ONCE ONCE PO ; Start 09/21/17 at 10:15; Stop 09/21/17 at 10:16; Status DC Magnesium Hydroxide (Milk Of Magnesia Liq) 30 ml Q12H PRN PO Mild constipation ; Start 09/21/17 at 11:45 Sennosides (Senokot) 17.2 mg Q12H PRN PO Moderate constipation Last administered on 09/25/17 08:05; Start 09/21/17 at 11:45 Bisacodyl (Dulcolax Supp) 10 mg DAILY PRN RECTAL SEVERE CONSITIPATION Last administered on 09/21/17 16:01; Start 09/21/17 at 11:45 Lactulose (Lactulose Liq) 30 ml DAILY PRN PO SEVERE CONSITIPATION Last administered on 09/26/17 08:38; Start 09/21/17 at 11:45 Sodium Chloride 250 ml @ 15 mls/hr ONCE ONCE IV Last administered on 14:00; Start 09/21/17 at 14:00; Stop 09/22/17 at 06:39; Status DC Magnesium Citrate (Citroma Liq) 300 ml ONCE ONCE PO Last administered on 17:00; Start 09/21/17 at 17:00; Stop 09/21/17 at 18:04; Status DC Ketorolac Tromethamine (Toradol Inj) 15 mg Q6H PRN IV PUSH breakthrough pain Last administered on 09/22/17 07:44; Start 09/21/17 at 17:15; Stop 09/22/17 at 10:41; Status DC Mineral Oil (Fleet Mineral Oil Enema) 118 ml ONCE ONCE RECTAL Last administered on 09/21/17 17:15; Start 09/21/17 at 17:15; Stop 09/21/17 at 18:04 ; Status DC Morphine Sulfate (Roxanol Liq) 5 mg Q4H PRN PO pain 4-10 Last administered on 09/25/17 08:06; Start 09/22/17 at 10:45; Stop 09/25/17 at 09:47; Status DC Pantoprazole Sodium (Protonix) 40 mg BID PO Last administered on 09/26/17 20: 47; Start 09/23/17 at 10:15 Polyethylene Glycol (Miralax) 17 gm DAILY PO Last administered on 09/27/17 08: 13; Start 09/24/17 at 09:00 Polyethylene Glycol (Miralax) 17 gm ONCE ONCE PO Last administered on 11:07; Start 09/23/17 at 10:15; Stop 09/23/17 at 11:01; Status DC Bisacodyl (Dulcolax Supp) 10 mg ONCE ONCE RECTAL Last administered on 11:07; Start 09/23/17 at 10:15; Stop 09/23/17 at 11:01; Status DC Promethazine HCl (Phenergan Liq) 12.5 mg Q4HR PRN PO nausea/vomiting Last administered on 09/26/17 11:10; Start 09/24/17 at 16:00; Stop 09/26/17 at 15:03 ; Status DC Multi-Ingredient Mouthwash/Gargle (Magic Mouthwash Adult Liq) 5 ml QID SWISH- SWAL Last administered on 09/24/17 22:20; Start 09/24/17 at 18:00; Stop at 09:47; Status DC Lactulose (Lactulose Liq) 30 ml BID PO Last administered on 09/25/17 21:39; Start 09/25/17 at 21:00; Stop 09/26/17 at 07:28; Status DC Morphine Sulfate (Roxanol Liq) 10 mg Q4H PRN PO pain 4-10 Last administered on 09/27/17 08:13; Start 09/25/17 at 09:45 Lidocaine HCl (Xylocaine 2% Viscous) 15 ml Q4H PRN SWISH-SPIT pain 1-3 Last administered on 09/26/17 11:11; Start 09/25/17 at 09:45; Stop 09/26/17 at 11:54 ; Status DC Fentanyl (Duragesic 25 Mcg Patch.72 Hr) 1 patch ONCE STAT T-DERMAL Last administered on 09/25/17 22:15; Start 09/25/17 at 21:43; Stop 09/25/17 at 21:48 ; Status DC Miscellaneous Information 1 ONCE ONCE T-DERMAL ; Start 09/28/17 at 21:43; Stop 09/28/17 at 21:44 Lactulose (Lactulose Liq) 30 ml TID PO Last administered on 09/27/17 08:14; Start 09/26/17 at 09:00 Lidocaine HCl (Xylocaine 2% Viscous) 15 ml Q4H PRN SWISH-SWAL mouth pain Last administered on 09/27/17 08:13; Start 09/26/17 at 10:30 Iron Dextran 25 mg/Sodium Chloride 50.5 ml @ 606 mls/hr ONCE ONCE IV Last administered on 09/26/17 15:34; Start 09/26/17 at 15:00; Stop 09/26/17 at 15:04 ; Status DC Iron Dextran 100 mg/Sodium Chloride 1,002 ml @ 2,004 mls/hr Q30M ONCE IV ; Start 09/26/17 at 16:00; Stop 09/26/17 at 16:29; Status Cancel Iron Dextran 1500 mg/Sodium Chloride 1,030 ml @ 85.833 mls/ hr Q12H ONCE IV Last administered on 09/26/17 17:30; Start 09/26/17 at 17:00; Stop 09/27/17 at 04:59; Status DC Diphenhydramine HCl (Benadryl Inj) 25 mg ONCE ONCE IV Last administered on 16:43; Start 09/26/17 at 16:30; Stop 09/26/17 at 16:31; Status DC Dexamethasone Sodium Phosphate (Decadron Inj) 20 mg ONCE ONCE IV Last administered on 09/26/17 16:43; Start 09/26/17 at 16:30; Stop 09/26/17 at 16:31 ; Status DC Famotidine (Pepcid Inj) 20 mg ONCE ONCE IV Last administered on 09/26/17 16: 43; Start 09/26/17 at 16:30; Stop 09/26/17 at 16:31; Status DC Promethazine HCl (Phenergan) 12.5 mg Q4H PRN PO nausea/vomiting Last administered on 09/27/17 08:14; Start 09/26/17 at 15:00 Miscellaneous (Pill Splitter) 1 ea UNSCH PRN OTHER SEE LABEL COMMENTS; Start 09/26/17 at 15:15 Iron Dextran 100 mg/Sodium Chloride 102 ml @ 204 mls/hr ONCE ONCE IV Last administered on 09/26/17 16:28; Start 09/26/17 at 16:30; Stop 09/26/17 at 16:59 ; Status DC A/P Problem List: (1) Fecal impaction in rectum ICD Code: K56.41 - Fecal impaction Status: Acute (2) Anemia ICD Code: D64.9 - Anemia, unspecified Status: Acute Assessment and Plan 62-year-old male with a past medical history significant for tongue cancer status post resection and radiation therapy, with recent frenulectomy 09/03/17 complicated by profuse bleeding requiring intubation presenting with anemia and fecal impaction. Iron deficiency anemia secondary to blood loss. -Most likely secondary to bleeding after frenulectomy, -Status post transfused with 1 unit packed red blood cells went from 7.2 to 7.9 to 9.5-8.8. -No active bleed bleeding and EGDs negative. -Most likely secondary to frenulectomy. Per Dr. Mishra ENT physician he stated that patient is not out of the window for active bleeding. Patient was given extensive directions by Dr. Mishra on how to prevent this from happening. -Dr. Malloy consulted and patient is getting IV iron. Severe constipation, fecal impaction -abdominal x-ray negative for obstruction, status post fleets enema, had a small bowel movement, repeat fleets enema as needed. - Patient refuses to have a CT scan of the abdomen because he does not want to be exposed to radiation. -Bowel regimen was changed to lactulose 3 times a day. -Continue to monitor. Elevated troponins -Asymptomatic. -Most likely from demand ischemia. Troponin is trending down. -Repeat echo showed EF of 50-55%. -Finish Opener consulted and stated that most likely secondary to demand ischemia. -Finish Opener recommend Lexiscan versus LHC. At the moment patient does not want further workup. History of tongue cancer - Status post frenulectomy/flap release 2 weeks ago with postoperative hemorrhage requiring transfusion and intubation for airway protection, monitor. -Pain is not controlled. -Patient was put on fentanyl patch which is improving pain. Continue with morphine for breakthrough pain. -Continue with viscous lidocaine and may swallow. -Dr. Mishra recommended a soft diet. Headache, resolved. -No neurological signs to seems to be more due to tension headache. Recommend a CT scan the brain since this is day 2. Patient declined any CT scans despite recommendations. Mild hypotension - Improving. Most likely secondary to poor oral intake. Anxiety -Continue home Ativan GERD -On Protonix. on Prevacid. DVT prophylaxis: SCDs. Discharge Planning Pain will need to be better controlled before discharge. Anticipating discharge tomorrow. Problem Qualifiers (1) Anemia: Qualified Codes: D62 - Acute posthemorrhagic anemia Brandi Swann MD Sep 27, 2017 09:47
[2017-09-27 12:24] VITALS: BP 103/55; PULSE 79; RESP 18; TEMP 98.4; O2SAT 97
--- NOTE | 2017-09-27 13:03 | HHI.GIFU ---
Subjective Remarks Pt resting in bed. No new complaints. No recent bleeding. NO black stools. Having regular BM. no abd pain. (Ya Lei) Objective Vitals I&O Vital Signs Date Time Temp Pulse Resp B/P (MAP) Pulse Ox O2 Delivery O2 Flow Rate FiO2 09/27/17 12:24 98.4 79 18 103/55 (71) 97 09/27/17 08:24 98.2 61 18 128/59 (82) 96 09/27/17 04:00 98.2 87 18 100/56 (71) 95 09/27/17 00:00 97.7 74 18 101/53 (69) 95 09/26/17 20:00 98.4 86 18 104/53 (70) 96 09/26/17 16:30 99.3 85 18 106/97 (100) 95 I/O 09/26/17 09/26/17 09/26/17 09/27/17 09/27/17 09/27/17 07:00 15:00 23:00 07:00 15:00 23:00 Intake Total 466 ml 766 ml Balance 466 ml 766 ml IV Total 466 ml 766 ml # Voids 5 3 # Bowel Movements 0 2 1 Laboratory Date/Time Source Procedure Growth Status 09/21/17 14:00 Stool Stool Stool Occult Blood (MARINO) - Final HEMOCCULT POSITIVE Complete Physical Exam HEENT: Normocephalic; atraumatic; no jaundice. NECK: Neck is supple CHEST: CTA CARDIAC: RRR ABDOMEN: Soft, nondistended, nontender; no hepatosplenomegaly; bowel sounds are present in all four quadrants. EXTREMITIES: No clubbing, cyanosis, or edema. SKIN: Normal; no rash; no jaundice. ICT SUPPORT AND TEST ENGINEERS: No focal deficits; alert and oriented times three. (Ya Lei) Assessment and Plan Plan ASSESSMENT - Anemia, guaiac positive stool - likely due to recent tongue surgery, & swallowing blood. required transfusion. Patient mentioned some dark stools when he was constipated but cannot provide further details. EGD negative. ENT consulted, made recs on diet to minimize risk of bleeding - Constipation, impaction - improved. regular BM, no abd pain on lactulose PLAN - continue lactulose - monitor HH - diet per ENT - Supportive care GI will sign off. Please reconsult if needed Patient seen and examined by Dr. Cervantes and myself and this note is written on his behalf (Ya Lei) Physician Comments Agree with the plan as above. Please notify us if needed. (Dano Cervantes MD) Ya Lei Sep 27, 2017 13:03 Dano Cervantes MD Sep 27, 2017 13:20
[2017-09-27 16:33] VITALS: BP 120/59; PULSE 79; RESP 18; TEMP 97.9; O2SAT 97
[2017-09-27 20:00] VITALS: BP 155/66; PULSE 83; RESP 20; TEMP 97.7; O2SAT 98
[2017-09-27] MEDS: TAMSULOSIN HCL 0.4 MG CAP PO SCH (21:01)
[2017-09-28] VITALS: BP 116/54; PULSE 78; RESP 21; TEMP 98.2; O2SAT 95
[2017-09-28] MEDS: LIDOCAINE VISCOUS 2% SOLN 15 ML UDC SWISH-SWAL PRN (00:31)
[2017-09-28] MEDS: PROMETHAZINE HCL 25 MG TAB PO PRN ×3 (00:31→11:07)
[2017-09-28] MEDS: MORPHINE SULFATE ORAL SOLN 10 MG/0.5 ML SYRINGE PO PRN ×3 (00:33→11:07)
[2017-09-28 04:00] VITALS: BP 141/60; PULSE 65; RESP 19; TEMP 97.4; O2SAT 96
[2017-09-28] MEDS: SODIUM CHLOR 0.9% 1000 ML INJ 1,000 ML IV SCH (04:21)
[2017-09-28 08:00] VITALS: BP 116/55; PULSE 71; RESP 20; TEMP 97.7; O2SAT 97
[2017-09-28] MEDS ORDERED: MORP20SO2 PO (08:52)
[2017-09-28] MEDS ORDERED: PROM25TA10 PO (08:52)
[2017-09-28] MEDS ORDERED: POLY17S PO (08:52)
[2017-09-28] MEDS ORDERED: Lactulose Liq PO (08:52)
[2017-09-28] MEDS ORDERED: FENT25T T-DERMAL (08:52)
[2017-09-28] MEDS ORDERED: LORA-474 PO (08:52)
[2017-09-28] MEDS ORDERED: LANSOPRAZOLE SOLUTAB 30 MG TAB NG SCH (09:00)
[2017-09-28] MEDS: SODIUM CHLORIDE 0.9% FLUSH 10 ML FLUSH IV FLUSH SCH (09:00)
[2017-09-28] MEDS: PANTOPRAZOLE SODIUM 40 MG VIAL IV PUSH SCH (09:00)
[2017-09-28] MEDS: POLYETHYLENE GLYCOL 17 GM PKG PO SCH (09:07)
--- NOTE | 2017-09-28 09:08 | PD.ONC.PN ---
Subjective Subjective Remarks Afebrile overnight. Pain controlled. Patient eager to go home. Objective Data Date Time Temp Pulse Resp B/P (MAP) Pulse Ox O2 Delivery O2 Flow Rate FiO2 09/28/17 08:00 97.7 71 20 116/55 (75) 97 09/28/17 04:00 97.4 65 19 141/60 (87) 96 09/28/17 00:00 98.2 78 21 116/54 (74) 95 09/27/17 20:00 97.7 83 20 155/66 (95) 98 09/27/17 16:33 97.9 79 18 120/59 (79) 97 09/27/17 12:24 98.4 79 18 103/55 (71) 97 09/28/17 09/28/17 09/28/17 07:00 15:00 23:00 Intake Total 906 ml Balance 906 ml Result Diagram: 09/26/17 0911 09/25/17 0647 Administered Medications Medications (Trade) Dose Ordered Sig/Daniel Route PRN Reason Start Time Stop Time Status Last Admin Dose Admin Sodium Chloride 1,000 ml @ 100 mls/hr Q10H IV 09/20/17 21:36 09/28/17 04:21 Sodium Chloride (NS Flush) 2 ml UNSCH PRN IV FLUSH FLUSH AFTER USING IV ACCESS 09/20/17 21:45 09/24/17 09:58 Sodium Chloride (NS Flush) 2 ml BID IV FLUSH 09/21/17 09:00 09/27/17 21:02 Pantoprazole Sodium (Protonix Inj) 40 mg DAILY IV PUSH 09/21/17 09:00 09/27/17 08:14 Mineral Oil (Fleet Mineral Oil Enema) 59 ml DAILY PRN RECTAL constipation 09/20/17 21:45 09/21/17 13:42 Lorazepam (Ativan) 1 mg TID PRN PO ANXIETY 09/20/17 21:45 09/27/17 23:37 Tamsulosin HCl (Flomax) 0.4 mg HS PO 09/21/17 21:00 09/27/17 21:01 Temazepam (Restoril) 30 mg HS PRN PO INSOMNIA 09/20/17 21:45 09/26/17 01:50 Acetaminophen (Tylenol) 650 mg Q6HR PRN PO Fever > 100.4 09/20/17 23:00 09/20/17 23:59 Sennosides (Senokot) 17.2 mg Q12H PRN PO Moderate constipation 09/21/17 11:45 09/25/17 08:05 Bisacodyl (Dulcolax Supp) 10 mg DAILY PRN RECTAL SEVERE CONSITIPATION 09/21/17 11:45 09/21/17 16:01 Lactulose (Lactulose Liq) 30 ml DAILY PRN PO SEVERE CONSITIPATION 09/21/17 11:45 09/26/17 08:38 Polyethylene Glycol (Miralax) 17 gm DAILY PO 09/24/17 09:00 09/27/17 08:13 Morphine Sulfate (Roxanol Liq) 10 mg Q4H PRN PO pain 4-10 09/25/17 09:45 09/28/17 06:06 Lactulose (Lactulose Liq) 30 ml TID PO 09/26/17 09:00 09/27/17 18:31 Lidocaine HCl (Xylocaine 2% Viscous) 15 ml Q4H PRN SWISH-SWAL mouth pain 09/26/17 10:30 09/28/17 00:31 Promethazine HCl (Phenergan) 12.5 mg Q4H PRN PO nausea/vomiting 09/26/17 15:00 09/28/17 06:06 Objective Remarks GENERAL: Pleasant, male upright in bed in nad. SKIN: Warm and dry. HEAD: Normocephalic. EYES: No injection or drainage. MOUTH: no bleeding. NECK: Supple, trachea midline. CARDIOVASCULAR: Regular rate and rhythm RESPIRATORY: clear to auscultation all lung van. GASTROINTESTINAL: Abdomen soft, non-tender, nondistended. EXTREMITIES: No cyanosis NEUROLOGICAL: aox3. moving all extremities. Assessment/Plan Assessment 62y/o male with history of squamous cell carcinoma of the tongue, bleeding and anemia. Plan 1. clear for discharge. Rx written for Fentanyl patch, Roxanol and ativan 2. Rx written for bowel regimen as well 3. follow up in clinic with Dr. Malloy once discharged. Attending Statement The exam, history, and the medical decision-making described in the above note were completed with the assistance of the mid-level provider. I reviewed and agree with the findings presented. I attest that I had a [id number] encounter with the patient on the same day, and personally performed and documented my assessment and findings in the medical record. patient looks well and discharge medicines reviewed in detail. He has a high level of anxiety and may benefit for medicine such as paxil or zoloft but will address this later. I again reviewed with him a plan to taper and discontinue the narcotic which I envision taking place over the next few weeks. Prescriptions written. Discussed discharge with Van and also spoke with patient 's sister who is effectively supportive. will follow as outpatient. Nicole Tai Sep 28, 2017 09:08 Alfredo Malloy MD Sep 28, 2017 20:29
[2017-09-28] MEDS: LACTULOSE SYRUP 20 GM/30 ML CUP PO SCH (09:10)
[2017-09-28] MEDS: LORazepam 1 MG TAB PO PRN (09:19)
[2017-09-28] MEDS ORDERED: LIDO2SOL11 SWISH-SWAL (10:04)
--- NOTE | 2017-09-28 10:04 | HHI.DCPOC ---
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 Avoid second hand smoke Call the 24-hour hour crisis hotline for domestic abuse at Brandi Swann MD Sep 28, 2017 10:04
--- NOTE | 2017-09-28 10:06 | HHI.DS ---
Discharge Summary Admission Date Sep 20, 2017 at 20:52 Discharge Date: Sep 28, 2017 Admitting Diagnosis Fecal Impaction/WorseningAnemia/Guiac Positive (1) Fecal impaction in rectum ICD Code: K56.41 - Fecal impaction Diagnosis: Principal Status: Acute (2) Anemia ICD Code: D64.9 - Anemia, unspecified Diagnosis: Principal Status: Acute (3) Squamous cell carcinoma of lateral tongue ICD Code: C02.1 - Malignant neoplasm of border of tongue Diagnosis: Principal Status: Acute (4) Uncontrolled pain ICD Code: R52 - Pain, unspecified Diagnosis: Principal (5) Decreased mobility and endurance ICD Code: Z74.09 - Other reduced mobility Diagnosis: Secondary Status: Acute Procedures See hospital course Brief History - From Admission 62-year-old male with a past medical history significant for tongue cancer presents to the emergency department with a 3 day history of left-sided abdominal pain and severe constipation. The patient is status post tongue resection in December 2015 which was followed with radiation therapy completed in May 2016. 2 weeks ago, the patient had a flap release of his tongue which resulted in residual bleeding requiring transfusion. The patient was discharged from [facility] in celebration on Sunday with a hemoglobin of 8. He is on Percocet every 4 hours and has had severe constipation 3 days. The patient tried an enema at home and is compliant with his stool softeners. Per emergency department examination there is a solid stool ball palpable in the patient's rectum. Disimpaction was unsuccessful. He was Hemoccult positive. He remains anemic with an H&H of 8.2/23.4. He denies dizziness or shortness of breath. Denies fatigue and weakness. CBC/BMP: 09/26/17 0911 09/25/17 0647 Significant Findings Laboratory Tests Test 09/26/17 06:55 09/26/17 09:11 Iron Level 24 MCG/DL (65-175) Percent Iron Saturation 7.7 % (20-50) Ferritin 18 NG/ML (26-388) Red Blood Count 2.86 MIL/MM3 (4.50-5.90) Hemoglobin 8.8 GM/DL (13.0-17.0) Hematocrit 25.4 % (39.0-51.0) Mean Platelet Volume 6.4 FL (7.0-11.0) Neutrophils (%) (Auto) 83.2 % (16.0-70.0) Lymphocytes # (Auto) 0.6 TH/MM3 (1.0-4.8) Imaging Last Impressions Abdomen X-Ray 09/22/17 0705 Signed Impressions: Service Date/Time: Friday, September 22, 2017 07:56 - CONCLUSION: 1. Nonobstructive bowel gas pattern. Dayday Arvizu MD PE at Discharge GENERAL: thin male in NAD CARDIOVASCULAR: Regular rate and rhythm without murmurs, gallops, or rubs. RESPIRATORY: Breath sounds equal bilaterally. No accessory muscle use. GASTROINTESTINAL: Abdomen soft, no TTP, nondistended. MUSCULOSKELETAL: No cyanosis, or edema. BACK: Nontender without obvious deformity. No CVA tenderness. Pt update on day of discharge Follow-up for uncontrolled pain and constipation Patient stated that he is having regular bowel movements. He stated the current regimen that he is on he is doing well. Patient stated that since he was started on the fentanyl patch he is requiring less oral morphine. Patient is asking for prescription for the viscous lidocaine. He stated that that works best for him. Patient has no other complaints. He stated he is ready for discharge. Hospital Course 62-year-old male with a past medical history significant for tongue cancer status post resection and radiation therapy, with recent frenulectomy 09/03/17 complicated by profuse bleeding requiring intubation presenting with anemia and fecal impaction. Iron deficiency anemia secondary to blood loss. -Most likely secondary to bleeding after frenulectomy, -Status post transfused with 1 unit packed red blood cells went from 7.2 to 7.9 to 9.5-8.8. -No active bleed bleeding while patient was hospitalized. GI was consulted for EGD which was negative. -Most likely secondary to frenulectomy. Per Dr. Mishra ENT physician he stated that patient is not out of the window for active bleeding. Patient was given extensive directions by Dr. Mishra on how to prevent this from happening. -Dr. Malloy consulted and patient is getting IV iron. Severe constipation, fecal impaction -abdominal x-ray negative for obstruction, status post fleets enema, had a small bowel movement, repeat fleets enema as needed. - Patient refuses to have a CT scan of the abdomen because he does not want to be exposed to radiation. -Patient was given multiple laxatives and stool softener along with suppository. He did have a bowel movement but it was not constant. He was then switched to lactulose 3 times a day and MiraLAX in which she had regular bowel movements. Elevated troponins -Asymptomatic. -Most likely from demand ischemia. Troponin is trending down. -Repeat echo showed EF of 50-55%. -Education Counselor consulted and stated that most likely secondary to demand ischemia. -Education Counselor recommend Lexiscan versus LHC. At the moment patient does not want further workup. History of tongue cancer/uncontrolled tongue pain - Status post frenulectomy/flap release 2 weeks ago with postoperative hemorrhage requiring transfusion and intubation for airway protection, monitor. -Pain was not controlled during the hospitalization. He was initially given Toradol but due to ? GI bleed that was discontinued. He was then given oral morphine since he stated that morphine worked the best. Later oncologist put patient on a fentanyl patch and continue morphine for breakthrough pain. -He was also given viscous lidocaine. This regimen helped his pain. -Dr. Mishra recommended a soft diet. Headache, resolved. -No neurological signs to seems to be more due to tension headache. Recommend a CT scan the brain since this is day 2. Patient declined any CT scans despite recommendations. Symptoms only lasted for 2 days and resolved on its own. Mild hypotension - Improving. Most likely secondary to poor oral intake. -Improved throughout the hospital course with better oral intake. Anxiety -Continue home Ativan Pt Condition on Discharge: Good Discharge Disposition: Discharge Home Discharge Time: > 30 minutes Discharge Instructions DIET: Follow Instructions for: As Tolerated, No Restrictions Speech Therapy-Diet Recommends: Mechanical Soft Activities you can perform: Regular-No Restrictions Follow up Referrals: Ear Nose Throat - 2 Weeks Oncology - 2 Weeks with Alfredo Malloy MD PCP Follow-up - 1 Week New Medications: Fentanyl Patch 72 HR (Duragesic Patch 72 HR) 25 Mcg/Hr Patch 25 MCG T-DERMAL Q72H for Pain Management, #5 PATCH 0 Refills Remove old patch when new one placed. Lidocaine Viscous 2% Liq (Lidocaine Viscous 2% Liq) 2 % Liq 15 ML SWISH-SWAL Q4H PRN for mouth pain, #200 ML 0 Refills Lorazepam (Ativan) 1 Mg Tab 1 MG PO TID PRN for ANXIETY, #90 TAB Morphine Liq (Morphine Liq) 20 Mg/Ml Liq 10 MG PO Q4H PRN for pain 4-10 for 10 Days, ML Polyethylene Glycol 3350 Powder (Polyethylene Glycol 3350 Powder) 17 Gram Pow 17 GM PO DAILY for Constipation for 30 Days, UNIT Promethazine (Phenergan) 25 Mg Tablet 12.5 MG PO Q6HR PRN for nausea/vomiting, #40 TAB 1 Refill [Lactulose Liq] () 30 ML SYRP 30 ML PO TID for 30 Days Continued Medications: Cholecalciferol (Vitamin D3) 50,000 Unit Cap 07131 UNITS PO Q7D for Nutritional Supplement, #30 CAP 0 Refills Lansoprazole (Prevacid) 30 Mg Capdr 30 MG PO BID, CAP 0 Refills Multiple Vitamin (Multi Vitamin Daily) 1 Tab Tab PO DAILY Tamsulosin (Flomax) 0.4 Mg Cap 0.4 MG PO HS for Manage Prostate Problems, #30 CAP 0 Refills Temazepam (Restoril) 30 Mg Cap 30 MG PO HS PRN for INSOMNIA, #30 CAP 0 Refills Discontinued Medications: Ibuprofen (Ibuprofen) 200 Mg Cap 200 MG PO Q6H PRN for PAIN SCALE 1 TO 10, CAP 0 Refills Lorazepam (Ativan) 1 Mg Tab 1 MG PO TID PRN for ANXIETY, TAB 0 Refills Oxycodone-Acetaminophen (Oxycodone-Acetaminophen) 5-325 mg Tab 1 TAB PO Q4H PRN for PAIN, TAB 0 Refills Promethazine (Promethazine) 12.5 Mg Tab 12.5 MG PO Q6H PRN for NAUSEA OR VOMITING, TAB 0 Refills Sennosides-Docusate Sodium (Doc-Q-Lax) 8.6-50 Mg Tab 1 TAB PO BID for Prevent Constipation, #30 TAB 0 Refills Brandi Swann MD Sep 28, 2017 10:06
[2017-09-28] MEDS ORDERED: REMOVE OLD PATCH-FENTANYL T-DERMAL ONE (21:43)
== END 2017-09-28 12:05 | disposition home or self-care (01) | DRG 392 ==
LOC: NEPE 17:34 → NEDA 20:52 → N05B 22:34
PROVIDERS: ADMIT Family Medicine; ATTEND Family Medicine
PROC: 30233N1 Transfusion of Nonautologous Red Blood Cells into Peripheral Vein, Percutaneous Approach (ICD-10-PCS; principal; 2017-09-21)
PROC: 0DJ08ZZ Inspection of Upper Intestinal Tract, Via Natural or Artificial Opening Endoscopic (ICD-10-PCS; 2017-09-24)
DX: K59.03 Drug induced constipation (principal); I24.8 Other forms of acute ischemic heart disease; I95.9 Hypotension, unspecified; D62 Acute posthemorrhagic anemia; F10.21 Alcohol dependence, in remission; K21.9 Gastro-esophageal reflux disease without esophagitis; G47.30 Sleep apnea, unspecified; R00.0 Tachycardia, unspecified; T40.605A Adverse effect of unspecified narcotics, initial encounter; G44.209 Tension-type headache, unspecified, not intractable; E61.1 Iron deficiency; M19.90 Unspecified osteoarthritis, unspecified site; F32.9 Major depressive disorder, single episode, unspecified; F41.9 Anxiety disorder, unspecified; Z23 Encounter for immunization; Z53.29 Procedure and treatment not carried out because of patient's decision for other reasons; Z80.1 Family history of malignant neoplasm of trachea, bronchus and lung; Z82.49 Family history of ischemic heart disease and other diseases of the circulatory system; Z85.810 Personal history of malignant neoplasm of tongue; Z88.5 Allergy status to narcotic agent; Z92.3 Personal history of irradiation
CPT/HCPCS: 36430; 74000; 80048; 80053; 82272; 82550; 82728; 83540; 83550; 84484; 85014; 85018; 85025; 85027; 85610; 85730; 86850; 86900; 86901; 86920; 90686; 93005; 93306; 96361; 96374; 96375; C9113; J1100; J1200; J1750; J1885; J2060; J2270; J2550; J3010; J7030; J7050; P9016; Q0169; Q2038

== ENCOUNTER → 2017-10-09 | Outpatient (CLI) | payer OTHER ==
[~2017-10-09] MED LIST changes: -DOC-8.6T PO; +FENT25T T-DERMAL; -IBUP200C PO; +LIDO2SOL11 SWISH-SWAL; +Lactulose Liq PO; +MORP20SO2 PO; +POLY17S PO; +PROM25TA10 PO
[2017-10-09 15:24] LABS: AUTOMATED NEUTROPHIL # 4.4 TH/MM3 (1.8-7.7); BASOPHIL % 0.6 % (0.0-2.0); EOSINOPHIL % 0.2 % (0.0-4.0); HEMATOCRIT 32.1 % (39.0-51.0); HEMO FLAGS DIFF FINAL; LYMPH % 13.6 % (9.0-44.0); LYMPHOCYTE # 0.7 TH/MM3 (1.0-4.8); MEAN CELL VOLUME 89.8 FL (80.0-100.0); MEAN CORPUSCULAR HEMOGLOBIN 29.6 PG (27.0-34.0); MEAN CORPUSCULAR HGB CONC 32.9 % (32.0-36.0); MONO % 6.3 % (0.0-8.0); NEUT % 79.3 % (16.0-70.0); PLATELET COUNT 284 TH/MM3 (150-450); RED BLOOD COUNT 3.57 MIL/MM3 (4.50-5.90); RED CELL DISTRIBUTION WIDTH 15.5 % (11.6-17.2); WHITE BLOOD COUNT 5.5 TH/MM3 (4.0-11.0)
== END ==
LOC: CLAB 15:06
PROVIDERS: ATTEND Internal Medicine
DX: D64.9 Anemia, unspecified (principal)
CPT/HCPCS: 36415; 85025

== ENCOUNTER 2017-11-07 12:21 | Emergency (ER) | payer OTHER ==
[2017-11-07 12:22] VITALS: BP 169/74; PULSE 94; RESP 14; TEMP 98.2; O2SAT 95
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
[2017-11-07] MEDS ORDERED: AUGM500T7 PO ×2 (13:25→16:00)
== END 2017-11-07 14:02 | disposition home or self-care (01) ==
LOC: NEPD 12:21
DX: K14.0 Glossitis (principal); C02.9 Malignant neoplasm of tongue, unspecified; M19.90 Unspecified osteoarthritis, unspecified site; F41.9 Anxiety disorder, unspecified; F32.9 Major depressive disorder, single episode, unspecified; E73.9 Lactose intolerance, unspecified; K21.9 Gastro-esophageal reflux disease without esophagitis; Z88.5 Allergy status to narcotic agent; Z88.0 Allergy status to penicillin
CPT/HCPCS: 99283

== ENCOUNTER → 2018-03-18 | Outpatient (CLI) | payer OTHER ==
[~2018-03-18] MED LIST changes: +AUGM500T7 PO; -FENT25T T-DERMAL; -LIDO2SOL11 SWISH-SWAL; -MORP20SO2 PO; -POLY17S PO; -PROM25TA10 PO
--- NOTE | 2018-03-18 15:09 | RADRPT ---
EXAM DATE/TIME: 03/18/2018 00:00 [facility] COMPARISON: BA SWALLOW W/SPEECH PATHOLOGY, April 24, 2017, 0:00. INDICATIONS : Dysphagia. FLUORO TIME: 3.9 minutes IMAGE COUNT: 0 CONTRAST: Dose as prescribed by speech pathologist. MEDICAL HISTORY : base of tongue cancer, necrosis of a tooth. SURGICAL HISTORY : partial glossectomy, pharangeal flap revision and stabilization of base of the tongue. ENCOUNTER: Initial ACUITY: >1 year PAIN SCORE: 0/10 LOCATION: Bilateral neck FINDINGS: A modified barium swallow was performed with speech pathology. Patient was given a variety of liquids to swallow. For a full detailed report, see report by the speech pathologist. CONCLUSION: Poor clearance of the hypopharynx and coating of the epiglottis without episodes of serge aspiration. Quincy Wills MD on March 18, 2018 at 15:07 Board Certified Radiologist. This report was verified electronically.
== END ==
LOC: HRAD 13:54
PROVIDERS: ATTEND Radiology Body Imaging
DX: R13.10 Dysphagia, unspecified (principal)
CPT/HCPCS: 74230; 92611; G8996; G8997; G8998

== ENCOUNTER 2018-07-02 05:28 | Inpatient (IN) ==
[2018-07-02] MEDS ORDERED: Sodium Chlor 0.9% Inj 500 ML IV.SIG SCH (06:00)
[2018-07-02] MEDS ORDERED: Metoprolol Tartrate 25 MG Tablet PO SCH (06:00)
[2018-07-02] MEDS ORDERED: Chlorhexidine Gluconate 2% 1 Pack (2 Cloths) TOPICAL SCH (06:00)
[2018-07-02] MEDS: ceFAZolin 2 GM Premix Inj 2 GM/50 ML PIGGYBACK IV.SIG ONE ×2 (08:27→15:53)
[2018-07-02] MEDS ORDERED: HYDROmorphone PF Inj 2 MG/ML Vial ONE (08:57)
[2018-07-02] MEDS ORDERED: Famotidine PF Inj 20 MG/2 ML Vial ONE (08:58)
[2018-07-02] MEDS ORDERED: Sugammadex Inj 200 MG/2 ML Vial IV.PUSH ONE (11:20)
[2018-07-02] MEDS ORDERED: Bisacodyl 10 MG Supp RECTAL PRN (11:43)
[2018-07-02] MEDS ORDERED: Post-op Orders (for Pharmacy) OTHER STA (11:43)
[2018-07-02] MEDS ORDERED: Naloxone Inj 0.4 MG/ML Vial IV.PUSH PRN ×2 (11:43→11:50)
[2018-07-02] MEDS ORDERED: Enoxaparin Inj 30 MG/0.3 ML Syringe SQ SCH (11:45)
[2018-07-02] MEDS ORDERED: Lidocaine PF 1% Inj 5 ML Syringe INFILTRATN ONE (12:00)
[2018-07-02] MEDS ORDERED: Succinylcholine Inj 100 MG/5 ML Syringe IV.PUSH ONE (12:00)
[2018-07-02] MEDS ORDERED: Phenylephrine/NS 1000 MCG/10ML Syringe IV.PUSH ONE (12:00)
[2018-07-02] MEDS ORDERED: Morphine Inj 30 MG/30 ML PCA.VIAL PCA ONE (12:01)
[2018-07-02] MEDS ORDERED: fentaNYL Citrate Inj 100 MCG/2 ML Ampul ONE (12:26)
[2018-07-02] MEDS ORDERED: LORazepam 1 MG Tablet PO SCH (13:00)
[2018-07-02] MEDS ORDERED: Ketorolac Inj 30 MG/ML (IVP) Vial ONE (13:25)
--- NOTE | 2018-07-02 13:36 | P.OP ---
Date of procedure: 07/02/18 Anesthesia: GETA Surgeon: Seymour Mcgowan MD Operation and Findings: PREOPERATIVE DIAGNOSIS 1. Right Upper Lobe PET Positive Lung Mass 2. Tongue Cancer - s/p resection and XRT 3. COPD POSTOPERATIVE DIAGNOSIS Locally Invasive Right Upper lobe Squamous Cell Carcinoma PROCEDURES 1. Robotic Right Upper Lobectomy 2. Lysis of Adhesions 3. Mediastinal Lymph Node Dissection. 4. Intercostal Nerve Block SURGEON Seymour Mcgowan MD ELECT[employer]IC [employer] SALESPERSON Sheila Pang, [facility] General endotracheal. TACTICAL DEBRIEFER OFFICER PATTI Stuart MD OPERATIVE TIME Please see record. COMPLICATIONS None. INDICATION FOR PROCEDURE The patient is a 63 yo gentleman with tongue cancer s/p resection and adjuvant therapy, now presenting with lung mass. DESCRIPTION OF PROCEDURE The patient was brought to the operating suite and placed in supine position. Following satisfactory induction of general endotracheal anesthesia, the patient was placed in the left lateral decubitus position. The right chest was then prepped and draped in the usual sterile fashion. Under direct vision, camera was introduced in the 8th ICS and insufflation was begun into the chest . Instrument arm 1, 2, and 3 were placed. Lesion was identified. It appeared densely adherent to the adjacent ribs, SVC, phrenic nerve and mediastinal pleura. The adhesions were sharply divided and the lesion was shaved off of the phrenic nerve and SVC surface and resected using a surgical stapler. Frozen section analysis was consistent with Squamous cell carcinoma with tumor extending to the surface of the specimen. The site of the local invasion was marked by titanium clips to assist in radiographic detection for post-operative therapy. The inferior pulmonary ligament was divided. The pulmonary arterial supply to the upper lobe was identified, dissected free and divided as was the pulmonary venous supply. The bronchus was then dissected free, clamped and the remaining lung was insufflated without any difficulty. Lymph node dissections of level 4, 7, 10 and 11 were performed along with the course of this removal. Some of these were retained with the specimen. Specimen was bagged and removed from the chest. A 28-Luxembourgish chest tube was placed. Intercostal nerve block was performed at the level of the incision and 3 rib spaces above and below using Exparel with Decadron solution. Tissell was sprayed along the staple line. Wounds were closed with 2-0, 3-0, and 4-0 Monocryl. The patient tolerated the procedure well and postoperatively went to recovery in stable condition.
[2018-07-02] MEDS ORDERED: Morphine Inj 4 MG/ML Vial IV.SIG ONE (14:00)
[2018-07-02] MEDS: Pilocarpine HCl 5 MG Tablet PO SCH ×2 (14:31→17:08)
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
--- NOTE | 2018-07-02 15:00 | P.DCO ---
- Home Health Nursing Order: Signs/symptoms of disease process, Wound care and dressing changes, Nursing assessment with vital signs Instructions: Incentive spirometry Q1 hr x 10, while awake, also use acapella device hourly whole Chest wall precautions: NO pushing or pulling, ( pt must use chest pillow support chest with all activities and with coughing Daily incision care: ok to shower ( 48hrs after chest tube removed) and then daily, no tub bath. Wash all incisions with liquid dial soap, clean wash cloth to each site, rinse and pat dry. Observe for any signs of infection, such as drainage which is dark yellow, iniguez, green or foul smelling. Immediately report to the surgeon any drainage from the chest incision, or legs, and for any abnormal drainage from the chest tube sites. Notify surgeon if any temp > 101.5 degrees F. When specialty dressing removed/ or if you do not have one, continue to shower daily as above, then rinse and pat incision dry and paint with betadine daily x 5 days. Allow steri strips to fall off if you have any. Avoid lotions, creams, salves, oils, etc. for the first month For Dr. Saeed patients , please obtain PA & Lat CXR in 2 weeks, results to Dr. Saeed ( prescription will be given) ( ) (Tele: [phone]) , F/U appointment: as per [facility] instructions: PCP in 2 weeks, CV surgeon 2 weeks, Car [facility]ockey 3-4 weeks For any questions regarding incisions/ dressing / meds / post op care or above Symptoms, Sunday 8am-5pm Heart & Vascular Surgery Office ( Dr. Mcgowan & Dr. Saeed), After Hours / Nights (5pm -8am) Weekends and Holidays Please call [facility] ([facility]) Charge Nurse - Certification I have seen patient Jose Welsh on 07/02/18. My clinical findings support the need for the requested home health care services because: Deconditioned with increased weakness I certify that my clinical findings support that this patient is homebound because: Post-op weakness
[2018-07-02] MEDS: Ketorolac Inj 30 MG/ML (IVP) Vial IV.PUSH SCH ×2 (15:54→21:26)
[2018-07-02] MEDS: Morphine Inj 30 MG/30 ML PCA.VIAL PCA PRN ×2 (19:21→19:34)
[2018-07-02] MEDS: guaiFENesin 600 MG ER Tablet PO SCH (21:29)
[2018-07-02] MEDS: Senna/Docusate Sodium 8.6/50 MG Tablet PO SCH (21:33)
[2018-07-03] MEDS: Temazepam 15 MG Capsule PO SCH ×2 (00:15→23:20)
[2018-07-03] MEDS: Pilocarpine HCl 5 MG Tablet PO SCH ×4 (00:15→23:23)
[2018-07-03] MEDS: LORazepam 1 MG Tablet PO SCH ×4 (00:16→23:20)
[2018-07-03] MEDS: Ketorolac Inj 30 MG/ML (IVP) Vial IV.PUSH SCH ×2 (03:51→09:08)
[2018-07-03 06:25] LABS: Baso % (Auto) 0.1 % (0.0-2.0); Hemoglobin 12.6 gm/dL (13.0-17.0); Lymph # (Auto) 0.8 th/mm3 (1.0-4.8); Lymph % (Auto) 10.5 % (9.0-44.0); Mean Corpuscular HGB Conc 34.1 % (32.0-36.0); Mean Corpuscular Hemoglobin 31.5 pg (27.0-34.0); Mean Corpuscular Volume 92.3 fL (80.0-100.0); Mean Platelet Volume 7.4 fL (7.0-11.0); Mono # (Auto) 0.9 th/mm3 (0.0-0.9); Mono % (Auto) 11.7 % (0.0-8.0); Neut # (Auto) 6.2 th/mm3 (1.8-7.7); Neut % (Auto) 77.7 % (16.0-70.0); Platelet Count 184 th/mm3 (150-450); Red Blood Count 4.01 mil/mm3 (4.50-5.90)
[2018-07-03 06:49] LABS: Carbon Dioxide 29.1 meq/L (21.0-32.0); Potassium 3.7 meq/L (3.5-5.1)
[2018-07-03] MEDS: Morphine Inj 30 MG/30 ML PCA.VIAL PCA PRN ×2 (07:14→09:26)
[2018-07-03] MEDS: Senna/Docusate Sodium 8.6/50 MG Tablet PO SCH ×2 (09:08→21:12)
[2018-07-03] MEDS: guaiFENesin 600 MG ER Tablet PO SCH ×2 (09:08→21:11)
[2018-07-03] MEDS ORDERED: Enoxaparin Inj 30 MG/0.3 ML Syringe SQ SCH (11:00)
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
[2018-07-03] MEDS: Acyclovir 200 MG Capsule PO SCH ×2 (17:35→23:19)
[2018-07-04] MEDS: LORazepam 1 MG Tablet PO SCH ×3 (06:32→23:25)
[2018-07-04] MEDS: Morphine Inj 30 MG/30 ML PCA.VIAL PCA PRN (06:33)
[2018-07-04] MEDS: Pilocarpine HCl 5 MG Tablet PO SCH ×3 (07:22→23:25)
[2018-07-04] MEDS: Acyclovir 200 MG Capsule PO SCH ×2 (07:34→20:41)
--- NOTE | 2018-07-04 08:59 | P.CONIM ---
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 On July 02, 2018 patient underwent Robotic Right Upper Lobectomy, Lysis of Adhesions, Mediastinal Lymph Node Dissection and Intercostal Nerve Block with Dr. Mcgowan for Locally Invasive Right Upper lobe Squamous Cell Carcinoma. We have been consulted to assist in postoperative medical management. Patient does complain genital herpes for which he was started on treatment outpatient but did not complete due to hospitalization. Patient also c/o that post op pain located at chest tube area is not completely controlled on current regiment. Patient denies SOB, fevers, chills, N/V/D. 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 Past surgical history Colonoscopy Destruction of oral lesion EGD with biopsy Feeding tube placement Tracheostomy Social history Denies EtOH use Current tobacco use Family medical history No narrow angle glaucoma Review of Systems All other systems reviewed negative except as stated in HPI PMFSH - History History Provided By: Patient - Medical History Medical History: Medical History (Last Reviewed 07/08/18 @ 08:49 by Anny Mayo, [employer]) Anxiety At high risk for aspiration Chronic nausea History of anesthesia reaction History of gastrostomy tube placement Hx of tongue cancer Hx of ulcerative colitis Insomnia Lung cancer - Surgical History Surgical History: Surgical History (Last Reviewed 07/02/18 @ 06:31 by Sherri Gifford) Hx of glossectomy Hx of vascular surgery - Tobacco History Second Hand Smoke Exposure: No Smoking Status: Never smoker - Alcohol History How Often Do You Have a Drink Containing Alcohol: Never - Substance Use History Substance History: No History of Abuse - Travel History Recent Travel in the [facility] Within the Last 8 Weeks: No Medications and Allergies Allergies Allergy/AdvReac Type Severity Reaction Status Date / Time lactose Allergy Mild Nausea Verified 07/02/18 06:12 ondansetron AdvReac Severe Nausea/Vomi Verified 07/02/18 06:12 ting codeine AdvReac Intermediate NAUSEA Verified 07/02/18 06:12 hydrocodone AdvReac Intermediate Nausea/Vomi Verified 07/02/18 06:12 ting oxycodone AdvReac Unknown n/v Verified 07/02/18 06:12 Home Medications Medication Instructions Recorded Confirmed Type cholecalciferol (vitamin D3) 50,000 unit PO QWEEK 06/25/18 07/04/18 History guaifenesin [Mucinex] 1 tab PO BID 06/25/18 07/04/18 History lactulose 30 g PO TID 06/25/18 07/04/18 History lorazepam 1 mg PO TID 06/25/18 07/04/18 History multivitamin [Daily Multi-Vitamin] 1 tab PO DAILY 06/25/18 07/04/18 History pilocarpine HCl 5 mg PO TID 06/25/18 07/04/18 History polyethylene glycol 3350 [Miralax] 0.5 g/kg PO DAILY 06/25/18 07/04/18 History promethazine 12.5 mg PO Q6H PRN 06/25/18 07/04/18 History sildenafil [Viagra] 100 mg PO DAILY PRN 06/25/18 07/04/18 History tamsulosin 0.4 mg PO DAILY 06/25/18 07/04/18 History temazepam 30 mg PO HS 06/25/18 07/04/18 History acetaminophen [Tylenol] 325 mg PO Q4-6H PRN 07/02/18 07/04/18 History lansoprazole 30 mg PO BID 07/04/18 07/04/18 History Active Medications: Active Medications Acyclovir (Zovirax) 200 mg PO 5 TIMES A DAY [facility] Last Admin: 07/04/18 07:34 Dose: Not Given Al Hydroxide/Mg Hydroxide (Milk Of Bonnie Liq) 30 ml PO Q12H PRN PRN Reason: Mild Constipation Albuterol (Albuterol Neb (Daniel)) 2.5 mg NEB Q6HR NEB DANIEL Last Admin: 07/04/18 08:50 Dose: 2.5 mg Bisacodyl (Dulcolax Supp) 10 mg RECTAL DAILY PRN PRN Reason: SEVERE CONSITIPATION Chlorhexidine Gluconate (Chlorhexidine 2% Cloth) 3 pack [employer] PATTERN[employer] [facility] Stop: 07/05/18 05:57 Last Admin: 07/02/18 05:45 Dose: 3 pack Cyclobenzaprine HCl (Flexeril) 5 mg PO Q8H PRN PRN Reason: muscle spasms Last Admin: 07/02/18 16:48 Dose: 5 mg Diphenhydramine HCl (Benadryl) 25 mg PO Q6H PRN PRN Reason: for itching Diphenhydramine HCl (Benadryl Inj) 25 mg IV.PUSH Q6H PRN PRN Reason: for itching Enoxaparin Sodium (Lovenox Inj) 30 mg SQ Q24H [facility] Last Admin: 07/03/18 11:10 Dose: Not Given Guaifenesin (Mucinex Er) 1,200 mg PO BID [facility] Last Admin: 07/03/18 21:11 Dose: 1,200 mg Lactated Ringer's (Lr 1000 Ml Inj) 1,000 mls @ 30 mls/hr IV.SIG .Q24H [facility] Stop: 07/05/18 05:57 Last Admin: 07/04/18 07:36 Dose: Not Given Sodium Chloride (Ns Inj) 500 mls @ 30 mls/hr IV.SIG .Q10H [facility] Stop: 07/05/18 05:57 Morphine Sulfate (Morphine Inj) 30 mg in 30 mls @ 0 mls/hr [employer]PECT[employer] UNSCH PRN PRN Reason: per YARN INSPECTOR parameters Last Admin: 07/04/18 06:33 Dose: 0 mls/hr Lactulose (Lactulose Liq) 30 ml PO TID [facility] Last Admin: 07/03/18 17:34 Dose: 30 ml Lactulose (Lactulose Liq) 30 ml PO DAILY PRN PRN Reason: SEVERE CONSITIPATION Lorazepam (Ativan) 1 mg PO Q8H [facility] Last Admin: 07/04/18 06:32 Dose: 1 mg Metoclopramide HCl (Reglan Inj) 10 mg IV.PUSH Q8H PRN; Protocol PRN Reason: nausea Last Admin: 07/04/18 06:33 Dose: 10 mg Metoprolol Tartrate (Lopressor) 25 mg PO [employer]TERN[employer] [facility] Stop: 07/05/18 05:57 Last Admin: 07/02/18 06:44 Dose: Not Given Miscellaneous (Pill Splitter) 1 each OTHER UNSCH PRN PRN Reason: SEE LABEL COMMENTS Naloxone HCl (Narcan Inj) 0.4 mg IV.PUSH PRN PRN PRN Reason: Resp rate < 10 Pantoprazole Sodium (Protonix) 40 mg PO HS [facility] Last Admin: 07/03/18 21:12 Dose: 40 mg Pilocarpine HCl (Salagen) 5 mg PO Q8H [facility] Last Admin: 07/04/18 07:22 Dose: 5 mg Povidone Iodine (Betadine 5% Antisepsis Kit) 1 applicatio EACH [employer]TERN[employer] [facility] Stop: 07/05/18 05:57 Last Admin: 07/02/18 06:44 Dose: 1 applicatio Senna/Docusate Sodium (Siomara-Colace) 1 tab PO BID [facility] Last Admin: 07/03/18 21:12 Dose: 1 tab Sennosides (Senokot) 17.2 mg PO Q12H PRN PRN Reason: Moderate Constipation Sodium Chloride (Ns Flush) 2 ml IV.FLUSH BID [facility] Last Admin: 07/03/18 21:12 Dose: 2 ml Sodium Chloride (Ns Flush) 2 ml IV.FLUSH PRN PRN PRN Reason: FLUSH AFTER USING IV ACCESS Tamsulosin HCl (Flomax) 0.4 mg PO DAILY [facility] Last Admin: 07/03/18 09:07 Dose: 0.4 mg Temazepam (Restoril) 30 mg PO [facility] Last Admin: 07/03/18 23:20 Dose: 30 mg Exam Vital signs: Vital Signs 07/03/18 09:00 07/03/18 09:08 07/03/18 10:00 Temperature Pulse Rate 88 97 H 96 H Respiratory Rate 18 Blood Pressure Pulse Oximetry 98 07/03/18 11:00 07/03/18 11:49 07/03/18 12:00 Temperature 98.3 F Pulse Rate 78 72 Respiratory Rate 18 18 Blood Pressure 123/62 Pulse Oximetry 99 07/03/18 13:00 07/03/18 14:00 07/03/18 15:00 Temperature Pulse Rate 65 70 66 Respiratory Rate Blood Pressure Pulse Oximetry 07/03/18 16:00 07/03/18 17:00 07/03/18 17:03 Temperature 98.3 F Pulse Rate 65 70 70 Respiratory Rate 18 18 Blood Pressure 133/63 Pulse Oximetry 98 07/03/18 18:00 07/03/18 19:20 07/03/18 20:00 Temperature 98.1 F Pulse Rate 87 114 H 118 H Respiratory Rate 21 Blood Pressure 131/70 Pulse Oximetry 94 L 07/03/18 21:00 07/03/18 21:14 07/03/18 22:34 Temperature Pulse Rate 112 H 107 H 103 H Respiratory Rate 16 Blood Pressure Pulse Oximetry 97 07/03/18 23:20 07/04/18 00:00 07/04/18 01:17 Temperature 98.3 F Pulse Rate 107 H 90 90 Respiratory Rate 20 Blood Pressure 140/68 Pulse Oximetry 98 07/04/18 02:04 07/04/18 03:00 07/04/18 03:45 Temperature 98.2 F Pulse Rate 80 101 H 84 Respiratory Rate 20 Blood Pressure 132/69 Pulse Oximetry 99 07/04/18 04:12 07/04/18 04:50 07/04/18 05:00 Temperature Pulse Rate 87 73 87 Respiratory Rate Blood Pressure Pulse Oximetry 07/04/18 06:46 07/04/18 07:00 07/04/18 08:00 Temperature Pulse Rate 85 89 88 Respiratory Rate 16 Blood Pressure 134/61 Pulse Oximetry Intake & Output 07/03/18 07/04/18 07/04/18 18:59 06:59 18:59 Intake Total 1100 / 1100 1340 / 1340 Output Total 480 / 480 870 / 870 Balance 620 / 620 470 / 470 Weight 86.5 kg Intake: IV 100 / 100 1100 / 1100 LR 1000 mL Inj 1,000 ML @ 30 1000 / 1000 mls/hr IV.SIG .Q24H DANIEL Rx#: [id number] Ancef Inj 1,000 MG In NS Inj 100 / 100 100 / 100 100 ML @ 200 mls/hr IV.SIG Q8H DANIEL Rx#:[id number] Oral 1000 / 1000 240 / 240 Output: Urine 400 / 400 800 / 800 Chest Tube Drainage 80 / 80 70 / 70 Right Pleural 80 / 80 70 / 70 Other: # Voids 4 # Bowel Movements 3 Narrative: GENERAL: This is a well-nourished, well-developed patient, in no apparent distress. SKIN: superficial lesions on head on penis consistent with genital herpes simplex CARDIOVASCULAR: Regular rate and rhythm RESPIRATORY: Chest tube right side GASTROINTESTINAL: Abdomen soft, non-tender, nondistended. Normal active bowel sounds MUSCULOSKELETAL: Extremities without clubbing, cyanosis, or edema. NEURO: Alert & Oriented x4 to person, place, time, situation. 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 On July 02, 2018 patient underwent Robotic Right Upper Lobectomy, Lysis of Adhesions, Mediastinal Lymph Node Dissection and Intercostal Nerve Block with Dr. Mcgowan for Locally Invasive Right Upper lobe Squamous Cell Carcinoma. We have been consulted to assist in postoperative medical management. Squamous cell carcinoma right upper lung lobe status post Robotic Right Upper Lobectomy, Lysis of Adhesions, Mediastinal Lymph Node Dissection and Intercostal Nerve Block with Dr. Mcgowan on 07/02/2018 Further management per CV surgery and oncology Genital herpes simplex Patient does complain genital herpes for which he was started on treatment outpatient but did not complete due to hospitalization. start Valtrex 1000 mg PO daily x 5 days patient would likely benefit from suppression dosing after DC GERD Patient on Protonix 40 mg BID BPH recommend continue home tamsulosin Anxiety recommend continue home lorazepam DVT prophylaxis per CV surgery (2) S/P lobectomy of lung Code(s): Z90.2 - Acquired absence of lung [part of] Status: Acute (3) Hx of tongue cancer Code(s): Z85.810 - Personal history of malignant neoplasm of tongue Status: Acute - Attending Attestation Patient examined. Assessment and plan formulated with Elise MALIK I agree with the above.
[2018-07-04] MEDS ORDERED: Morphine Inj 4 MG/ML Vial IV.PUSH PRN (09:07)
[2018-07-04] MEDS: Senna/Docusate Sodium 8.6/50 MG Tablet PO SCH ×2 (10:31→21:38)
[2018-07-04] MEDS: guaiFENesin 600 MG ER Tablet PO SCH ×2 (10:32→21:39)
[2018-07-04] MEDS: Pantoprazole Inj 40 MG Vial IV.PUSH SCH ×2 (10:41→21:38)
[2018-07-04] MEDS: Polyethylene Glycol 3350 17 GM Packet PO SCH (13:54)
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
[2018-07-04] MEDS: valACYclovir 500 MG Tab PO SCH (17:49)
[2018-07-04] MEDS: Temazepam 15 MG Capsule PO SCH (23:25)
[2018-07-04] MEDS: Ketorolac Inj 30 MG/ML (IVP) Vial IV.PUSH PRN (23:26)
[2018-07-05] MEDS: LORazepam 1 MG Tablet PO SCH ×3 (05:07→23:54)
[2018-07-05] MEDS: Ketorolac Inj 30 MG/ML (IVP) Vial IV.PUSH PRN ×3 (09:07→21:09)
[2018-07-05] MEDS: guaiFENesin 600 MG ER Tablet PO SCH ×2 (09:12→21:08)
[2018-07-05] MEDS: Senna/Docusate Sodium 8.6/50 MG Tablet PO SCH ×2 (09:12→21:09)
[2018-07-05] MEDS: valACYclovir 500 MG Tab PO SCH (09:12)
[2018-07-05] MEDS: Polyethylene Glycol 3350 17 GM Packet PO SCH (09:13)
[2018-07-05] MEDS: Pilocarpine HCl 5 MG Tablet PO SCH ×2 (09:30→16:06)
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
[2018-07-05] MEDS: Temazepam 15 MG Capsule PO SCH (23:54)
[2018-07-06] MEDS: Pilocarpine HCl 5 MG Tablet PO SCH ×4 (01:09→23:55)
[2018-07-06] MEDS: LORazepam 1 MG Tablet PO SCH ×3 (05:00→23:41)
[2018-07-06] MEDS: Ketorolac Inj 30 MG/ML (IVP) Vial IV.PUSH PRN ×4 (05:00→23:40)
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
[2018-07-06] MEDS: Senna/Docusate Sodium 8.6/50 MG Tablet PO SCH ×2 (10:12→20:37)
[2018-07-06] MEDS: guaiFENesin 600 MG ER Tablet PO SCH ×2 (10:12→20:37)
[2018-07-06] MEDS: valACYclovir 500 MG Tab PO SCH (10:12)
[2018-07-06] MEDS: Polyethylene Glycol 3350 17 GM Packet PO SCH (10:13)
[2018-07-06] MEDS: Temazepam 15 MG Capsule PO SCH (23:41)
[2018-07-07] MEDS: Ketorolac Inj 30 MG/ML (IVP) Vial IV.PUSH PRN ×4 (06:40→23:19)
[2018-07-07] MEDS: LORazepam 1 MG Tablet PO SCH ×3 (06:47→23:17)
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
[2018-07-07] MEDS: Senna/Docusate Sodium 8.6/50 MG Tablet PO SCH ×2 (10:09→21:36)
[2018-07-07] MEDS: Polyethylene Glycol 3350 17 GM Packet PO SCH (10:09)
[2018-07-07] MEDS: guaiFENesin 600 MG ER Tablet PO SCH ×2 (10:43→21:36)
[2018-07-07] MEDS: Pilocarpine HCl 5 MG Tablet PO SCH ×3 (10:43→23:18)
[2018-07-07] MEDS: valACYclovir 500 MG Tab PO SCH (10:44)
[2018-07-07] MEDS: Temazepam 15 MG Capsule PO SCH (23:18)
[2018-07-08] MEDS: LORazepam 1 MG Tablet PO SCH ×3 (06:16→21:47)
[2018-07-08] MEDS: Ketorolac Inj 30 MG/ML (IVP) Vial IV.PUSH PRN ×2 (06:23→13:47)
[2018-07-08] MEDS: Pilocarpine HCl 5 MG Tablet PO SCH ×2 (08:32→18:09)
[2018-07-08] MEDS: guaiFENesin 600 MG ER Tablet PO SCH ×2 (08:33→21:47)
[2018-07-08] MEDS: valACYclovir 500 MG Tab PO SCH (08:34)
[2018-07-08] MEDS: Polyethylene Glycol 3350 17 GM Packet PO SCH (08:36)
[2018-07-08] MEDS: Senna/Docusate Sodium 8.6/50 MG Tablet PO SCH ×2 (08:36→21:47)
[2018-07-08] MEDS ORDERED: Morphine Sulfate Oral Liq 10 MG/0.5 ML Syringe PO PRN (10:36)
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
[2018-07-08] MEDS: Morphine Sulfate Oral Liq 10 MG/0.5 ML Syringe PO PRN ×2 (18:03→23:19)
[2018-07-08] MEDS: Temazepam 15 MG Capsule PO SCH (21:47)
[2018-07-09] MEDS: Pilocarpine HCl 5 MG Tablet PO SCH ×2 (00:37→08:34)
[2018-07-09] MEDS: Morphine Sulfate Oral Liq 10 MG/0.5 ML Syringe PO PRN ×2 (03:30→13:31)
[2018-07-09] MEDS: LORazepam 1 MG Tablet PO SCH ×2 (05:59→13:32)
[2018-07-09] MEDS: Senna/Docusate Sodium 8.6/50 MG Tablet PO SCH (08:34)
[2018-07-09] MEDS: valACYclovir 500 MG Tab PO SCH (08:34)
[2018-07-09] MEDS: Polyethylene Glycol 3350 17 GM Packet PO SCH (08:37)
[2018-07-09] MEDS: guaiFENesin 600 MG ER Tablet PO SCH (08:37)
[2018-07-09] MEDS ORDERED: Metoprolol Tartrate 25 MG Tablet PO SCH (09:30)
--- NOTE | 2018-07-09 09:47 | P.DS ---
Date of admission: 07/02/18 05:28 Primary care physician: Hector Way MD Attending physician on discharge: Seymour Mcgowan Brief History from admission: 07/03 pt now has intermittent air leak with coughing improved, refuses chest xray, concerned about any radiation from xray discussed with Dr Mcgowan, will eval chest tube in am , if no air leak in am, may check with suction tomorrow to eval for any potential air leak Eire on side of caution / then possible removal on sunday , with post CXR IS encouraged , path pending OOB ambulate 07/04 chest tube with intermittent air leak pain not controlled with DELICATE FABRICS PRESSER will dc , add fentanly patch / prn morphine / toradol OOB ambulate 07/05 no air leak noted today / will leave in for now eval for removal over the weekend pt more comfortable / on room air path resulted 07/06 Doing well No air leak noted to the chest tube Pathology findings discussed with the patient Likely remove the chest tube tomorrow with discharge to follow 07/07 Does not want any radiation including CXR done Will clamp CT today and possibly D/C tomorrow Given pathology findings will benefit from radiation therapy, but pt is completely against it. Will discuss with Dr. Malloy 07/08 chest tube removed without difficulty dc fentanly patch add liguid morphine prn OOB ambulate pt still refuses any CXR DS: Diagnosis - Discharge Diagnosis (1) Mass of upper lobe of right lung Status: Acute (2) S/P lobectomy of lung Status: Acute (3) Hx of tongue cancer Status: Acute DS: Medications - Discharge Medications Prescriptions: metoprolol tartrate 25 mg PO BID #60 tab morphine concentrate 10 mg PO Q4H PRN #25 ml MDD 3ml / 60mg PRN Reason: Pain Scale 4 To 6 Moderate prochlorperazine maleate 5 mg PO Q6H PRN #30 tab PRN Reason: Nausea valacyclovir [Valtrex] 1,000 mg PO DAILY #3 tab DS: Summary Hospital Course: 07/02 pt electively admitted surgery: 1. Robotic Right Upper Lobectomy 2. Lysis of Adhesions 3. Mediastinal Lymph Node Dissection. 4. Intercostal Nerve Block 07/03 pt now has intermittent air leak with coughing improved, refuses chest xray, concerned about any radiation from xray discussed with Dr Mcgowan, will eval chest tube in am , if no air leak in am, may check with suction tomorrow to eval for any potential air leak Eire on side of caution / then possible removal on sunday , with post CXR IS encouraged , path pending OOB ambulate 07/04 chest tube with intermittent air leak pain not controlled with DELICATE FABRICS PRESSER will dc , add fentanly patch / prn morphine / toradol OOB ambulate 07/05 no air leak noted today / will leave in for now eval for removal over the weekend pt more comfortable / on room air path resulted 07/06 Doing well No air leak noted to the chest tube Pathology findings discussed with the patient Likely remove the chest tube tomorrow with discharge to follow 07/07 Does not want any radiation including CXR done Will clamp CT today and possibly D/C tomorrow Given pathology findings will benefit from radiation therapy, but pt is completely against it. Will discuss with Dr. Malloy 07/08 chest tube removed without difficulty dc fentanly patch add liguid morphine prn OOB ambulate pt still refuses any CXR 07/09 now requesting compazine for dc HR 110-120 with ambulation / sinus tach add low dose BB stable for dc - Time Spent with Patient Total time spent providing and/or coordinating discharge services: Greater than 30 minutes - Quality: VTE Deep Vein Thrombosis/Pulmonary Embolism Present on Admission: No Exam Vital signs: Vital Signs 07/08/18 10:00 07/08/18 11:00 07/08/18 12:00 Temperature Pulse Rate 68 68 68 Respiratory Rate Blood Pressure Pulse Oximetry 07/08/18 13:00 07/08/18 14:00 07/08/18 15:00 Temperature Pulse Rate 78 76 72 Respiratory Rate Blood Pressure Pulse Oximetry 07/08/18 16:00 07/08/18 17:00 07/08/18 18:00 Temperature 98 F Pulse Rate 64 80 90 Respiratory Rate Blood Pressure 129/65 Pulse Oximetry 07/08/18 19:00 07/08/18 20:02 07/08/18 20:20 Temperature 98.6 F Pulse Rate 75 74 82 Respiratory Rate 20 Blood Pressure 120/63 Pulse Oximetry 98 07/08/18 21:02 07/08/18 22:02 07/08/18 23:02 Temperature Pulse Rate 80 100 H 83 Respiratory Rate Blood Pressure Pulse Oximetry 07/08/18 23:19 07/08/18 23:49 07/09/18 00:02 Temperature 98.4 F Pulse Rate 82 78 Respiratory Rate 20 18 Blood Pressure 134/63 Pulse Oximetry 97 07/09/18 01:02 07/09/18 02:02 07/09/18 03:02 Temperature Pulse Rate 70 70 82 Respiratory Rate Blood Pressure Pulse Oximetry 07/09/18 04:00 07/09/18 04:02 07/09/18 05:00 Temperature 98.4 F Pulse Rate 82 84 88 Respiratory Rate 16 Blood Pressure 134/63 Pulse Oximetry 97 07/09/18 06:00 Temperature Pulse Rate 82 Respiratory Rate Blood Pressure Pulse Oximetry Intake & Output 07/08/18 07/09/18 07/09/18 18:59 06:59 18:59 Intake Total 750 / 750 200 / 200 Balance 750 / 750 200 / 200 Weight 88.5 kg Intake: Oral 750 / 750 200 / 200 Other: # Voids 5 1 Date of Last Bowel Movement 07/07/18 07/08/18 # Bowel Movements 0 - Constitutional no acute distress - Routine HEENT Exam Head: Present: normocephalic - Routine Neck Exam Present: supple - Routine Chest/Breast/Axilla Exam Chest wall: Present: tenderness - Routine Respiratory Exam Present: decreased breath sounds, CTA bilaterally - Routine Cardiovascular Exam Present: RRR, S1, S2 - Routine Abdominal Exam Present: soft, normoactive bowel sounds - Routine Extremities Exam Present: full ROM, pulses intact - Routine Skin Exam Present: intact - Routine Neurological Exam Present: alert, oriented X3 Results Procedures completed during hospitalization: 07/02 1. Robotic Right Upper Lobectomy 2. Lysis of Adhesions 3. Mediastinal Lymph Node Dissection. 4. Intercostal Nerve Block Discharge Plan - Discharge Disposition Patient Disposition: /Home Health Service - Discharge Order Discharge Orders: Discharge Order (Routine); Ordered 07/09/18 Ordered By: Jennifer Mtz - Discharge Details Anticipated Discharge Date: 07/09/18 - Physicians Team Primary Care Provider: Hector Way Attending Provider: Seymour Mcgowan Other Providers: [facility] ; Alfonso Phillips DO - Rxs /Orders / Referrals /Forms Prescriptions: New metoprolol tartrate 25 mg Tablet 25 mg PO BID Qty: 60 RF: 2 morphine concentrate 100 mg/5 mL (20 mg/mL) Solution 10 mg PO Q4H MDD 3ml / 60mg PRN (Reason: Pain Scale 4 To 6 Moderate) Qty: 25 RF: 0 prochlorperazine maleate 5 mg Tablet 5 mg PO Q6H PRN (Reason: Nausea) Qty: 30 RF: 0 valacyclovir [Valtrex] 500 mg Tablet 1,000 mg PO DAILY Qty: 3 RF: 0 Continue acetaminophen [Tylenol] 325 mg Capsule 325 mg PO Q4-6H PRN (Reason: Pain) cholecalciferol (vitamin D3) 50,000 unit Capsule 50,000 unit PO QWEEK guaifenesin [Mucinex] 1,200 mg Tablet Extended Release 12hr 1 tab PO BID lactulose 20 gram/30 mL Solution 30 g PO TID lansoprazole 30 mg Capsule,Delayed Release(Dr/Ec) 30 mg PO BID lorazepam 1 mg Tablet 1 mg PO TID multivitamin [Daily Multi-Vitamin] Tablet 1 tab PO DAILY pilocarpine HCl 5 mg Tablet 5 mg PO TID promethazine 12.5 mg Tablet 12.5 mg PO Q6H PRN (Reason: Nausea) sildenafil [Viagra] 100 mg Tablet 100 mg PO DAILY PRN (Reason: Sexual Activity) tamsulosin 0.4 mg Capsule,Extended Release 24hr 0.4 mg PO DAILY temazepam 30 mg Capsule 30 mg PO HS Discontinued polyethylene glycol 3350 [Miralax] 17 gram/dose Powder 0.5 g/kg PO DAILY Referrals: Hector Way MD [Primary Care Provider] - See Instructions ( Your appointment has been scheduled for [Jul 31] at [3:00pm] If you cannot make this appointment, please call the office to reschedule ) Alfredo Malloy MD [Physician] - See Instructions ( Your appointment has been scheduled for [08/13/18] at [8:30 AM] If you cannot make this appointment, please call the office to reschedule ) Seymour Mcgowan MD [Physician] - See Instructions ( Your appointment has been scheduled for [Jul 30] at [10:45am] If you cannot make this appointment, please call the office to reschedule ) - Discharge Instructions Patient Printed Instructions: Genital Herpes Simplex (DC), Lung Lobectomy (DC) Additional Instructions: HOME HEALTH CARE HAS BEEN ARRANGED WITH [facility], CONTACT# [phone] Incentive spirometry Q1 hr x 10, while awake, also use acapella device hourly whole Chest wall precautions: NO pushing or pulling, ( pt must use chest pillow support chest with all activities and with coughing Daily incision care: ok to shower ( 48hrs after chest tube removed) and then daily, no tub bath. Wash all incisions with liquid dial soap, clean wash cloth to each site, rinse and pat dry. Observe for any signs of infection, such as drainage which is dark yellow, iniguez, green or foul smelling. Immediately report to the surgeon any drainage from the chest incision, or legs, and for any abnormal drainage from the chest tube sites. Notify surgeon if any temp > 101.5 degrees F. When specialty dressing removed/ or if you do not have one, continue to shower daily as above, then rinse and pat incision dry and paint with betadine daily x 5 days. Allow steri strips to fall off if you have any. Avoid lotions, creams, salves, oils, etc. for the first month For Dr. Saeed patients , please obtain PA & Lat CXR in 2 weeks, results to Dr. Saeed ( prescription will be given) ( ) (Tele: [phone]) , F/U appointment: as per [place] instructions: PCP in 2 weeks, CV surgeon 2 weeks, Administrative Receptionist 3-4 weeks For any questions regarding incisions/ dressing / meds / post op care or above Symptoms, Sunday 8am-5pm Heart & Vascular Surgery Office ( Dr. Mcgowan & Dr. Saeed), After Hours / Nights (5pm -8am) Weekends and Holidays Please call [facility] Card[facility] ([facility]) Charge Nurse
[2018-07-09] MEDS ORDERED: Bisacodyl 10 MG Supp RECTAL ONE (13:52)
[2018-07-09] MEDS ORDERED: Morphine Sulfate 15 MG IR Tablet PO PRN (13:57)
[2018-07-09 15:09] VITALS: O2SAT 96
[2018-07-09 20:47] VITALS: BP 115/65; RESP 20; TEMP 98.8
[2018-07-09 20:50] VITALS: PULSE 85
== END 2018-07-09 15:00 | disposition home health service (06) ==
LOC: HSDI 05:28 → HCPC 13:44
PROVIDERS: ADMIT Thoracic Surgery (Cardiothoracic Vascular Surgery); ATTEND Thoracic Surgery (Cardiothoracic Vascular Surgery)